=== PATIENT | male | born 1945 | race African-American/Black ===

== ENCOUNTER → 2017-11-14 | Day surgery (SDC) | payer OTHER ==
--- NOTE | 2017-11-12 12:44 | Diagnostic Imaging Report ---
PROCEDURE: Frontal and lateral views of the chest. COMPARISON: None. INDICATIONS: PREOPERATIVE CHEST XRAY FOR BLADDER SURGERY FINDINGS: Lines/tubes: None. Lungs: The lungs are well inflated and grossly clear. There is no evidence of pneumonia or pulmonary edema. Pleura: There is no pleural effusion or pneumothorax. Heart and mediastinum: Cardiac silhouette is unremarkable. Pulmonary vasculature is normal. Bones: No acute bony abnormality. IMPRESSION: 1. No acute cardiopulmonary abnormalities. Jimmy Peterson M.D. Dictated by: Jimmy Peterson M.D. on 11/12/2017 at 12:52 Electronically approved by: Jimmy Peterson M.D. on 11/12/2017 at 12:52
[2017-11-12 13:14] LABS: ANION GAP 13.7 mmol/L (8-16); BLOOD UREA NITROGEN 21 mg/dL (7-26); BUN/CREATININE RATIO 15 (6-25); CALCIUM 9.3 mg/dL (8.4-10.2); CARBON DIOXIDE 24 mmol/L (22-29); CHLORIDE 107 mmol/L (98-107); CREATININE, SERUM 1.38 mg/dL (0.72-1.25); EST GLOMERULAR FILTRATION RATE > 60 ML/MIN (60-); GLUCOSE 183 mg/dL (74-118); POTASSIUM 3.7 mmol/L (3.5-5.1); SODIUM 141 mmol/L (136-145)
[~2017-11-14] MED LIST: ATORVASTATIN CA20 MG PO; CEFTRIAXONE SOD 1 GM VIAL ONE; DEXAMETHASONE SOD PHOS INJ 4 MG/ML VIAL ONE; FENTANYL CITRATE/PF 100MCG/2 ML INJ ONE; FLOMAX0.4 MG PO; HYDROCHLOROTHIA25 MG PO; IOPAMIDOL 610MG/1ML 300 MG/ML VIAL IV ONE; LANTUS 3ML100 UNITS/ SQ; LIDOCAINE HCL 2% LOCAL INJ 5 ML SDV VIAL INJ ONE; LISINOPRIL40 MG PO; METFORMIN HCL1000 MG PO; MIDAZOLAM HCL 2 MG/2 ML VIAL ONE; NOVOLOG MI100 UNIT/1 SQ; ONDANSETRON HCL INJ 2 MG/ML VIAL ONE; PROPOFOL IV EMULSION 10 MG/ML 20 ML VIAL ONE; SEVOFLURANE INHAL SOLN 250 ML PEN BTL ONE
--- NOTE | 2017-11-14 14:32 | Operative Report ---
DATE OF PROCEDURE: November 14, 2017 PREOPERATIVE DIAGNOSIS: Bladder tumor. POSTOPERATIVE DIAGNOSIS: Bladder tumor. PROCEDURE PERFORMED: Cystourethroscopy with bladder washing. ANESTHESIA: General. ESTIMATED BLOOD LOSS: Minimal. COMPLICATIONS: None. INDICATIONS: Mr. Ramos is a 72-year-old male who was discovered to have a bladder tumor on office cystoscopy. He had a CT scan revealing asymmetric bladder wall thickening, more on the right side than on the left, with prostate enlargement. He and I had a long discussion in regard to the alternatives, the risks and benefits including doing nothing, cystoscopy, retrograde pyelograms, bladder tumor resection. He voiced understanding of the options, the alternatives, the risks and the benefits, and elected to proceed. PROCEDURE IN DETAIL: After informed consent was obtained, the patient was taken to the operating suite. He was placed supine on the operating table and underwent general anesthesia by the anesthesia service. He was placed in the dorsal lithotomy position and sterilely prepped and draped in the standard fashion for cystoscopy. A cystoscope was inserted transurethrally. There was a normal-appearing urethra. There was trilobar prostatic hypertrophy with elevated bladder neck. Panendoscopy of the bladder revealed a moderate degree of trabeculation. The entire right side of the bladder extending onto the right trigone was covered with a sessile-appearing tumor. Due to the enlargement of the prostate, I could not access the tumors to get an adequate biopsy although could visualize with the 70-degree scope. The tumors on the right lateral wall were unable to be reached without an extra-long cystoscope which is unavailable at this hospital. At this time, with the inability to safely fulgurate or coagulate any biopsy sites and the scope barely able to reach the bladder neck, we performed a bladder washing as best we could and clearly this tumor is concerning for muscle invasion on the right side. I will have to send him to the [facility] where an extra-long cystoscope set is available. Job#: [id number] EV
== END | disposition home or self-care (01) ==
LOC: OR 11:58
PROVIDERS: ATTEND Urology
DX: D49.4 Neoplasm of unspecified behavior of bladder (principal); N40.0 Benign prostatic hyperplasia without lower urinary tract symptoms; R97.20 Elevated prostate specific antigen [PSA]; N32.89 Other specified disorders of bladder; R35.1 Nocturia; N52.9 Male erectile dysfunction, unspecified; N39.0 Urinary tract infection, site not specified; A80.9 Acute poliomyelitis, unspecified; E66.9 Obesity, unspecified; E11.9 Type 2 diabetes mellitus without complications; I10 Essential (primary) hypertension; R06.02 Shortness of breath; Z01.812 Encounter for preprocedural laboratory examination; Z01.818 Encounter for other preprocedural examination; Z79.4 Long term (current) use of insulin; Z68.37 Body mass index [BMI] 37.0-37.9, adult
CPT/HCPCS: 36415 ×2; 52000; 71046; 76000; 80048; 82948; 88112; C1758; J0696; J1100; J2001; J2250; J2405; Q9967; 88305

== ENCOUNTER → 2017-11-21 | Day surgery (SDC) | payer OTHER ==
[~2017-11-21] MED LIST changes: +BELLADONNA/OPIUM 60 MG SUPP PR ONE; -CEFTRIAXONE SOD 1 GM VIAL ONE; +EPHEDRINE SULFATE INJ 50 MG/10 ML SYR ONE; +GENTAMICIN 80MG/NS 100 ML 100 ML IV ONE
[2017-11-21 09:28] LABS: BASOPHILS % 0.4 % (0.0-1.0); EOSINOPHILS # (AUTO) 0.3 (0.0-0.4); EOSINOPHILS % 4.4 % (0.0-6.0); HEMATOCRIT 44.1 % (38.2-49.6); HEMOGLOBIN 14.6 g/dL (14.0-18.0); LYMPHOCYTES # (AUTO) 1.6 (1.0-3.2); LYMPHOCYTES % 20.8 % (18.0-39.1); MEAN CORPUSCULAR HEMOGLOBIN 30.7 pg (28-32); MEAN CORPUSCULAR HGB CONC 33.1 g/dL (31-35); MEAN CORPUSCULAR VOLUME 92.8 fL (81-99); MONOCYTES # (AUTO) 0.6 (0.2-0.8); MONOCYTES % 8.4 % (4.4-11.3); NEUTROPHILS # (AUTO) 4.9 (2.1-6.9); NEUTROPHILS % 65.5 % (38.7-80.0); PLATELET COUNT 216 x10e3/uL (140-360); RED BLOOD COUNT 4.75 x10e6/uL (4.3-5.7); RED CELL DISTRIBUTION WIDTH 13.7 % (11.7-14.4)
--- NOTE | 2018-01-15 07:07 | Operative Report ---
DATE OF PROCEDURE: November 21, 2017 PREOPERATIVE DIAGNOSES: 1. Lateral wall bladder cancer. 2. Microhematuria. POSTOPERATIVE DIAGNOSES: 1. Lateral wall bladder cancer. 2. Microhematuria. OPERATIONS PERFORMED: 1. Cystourethroscopy with bilateral ureteral catheterization and retrograde ureteropyelography (separate procedure performed for the hematuria). 2. Interpretation of retrograde ureteropyelography. 3. Supervision of fluoroscopy, no radiologist present. 4. Cystourethroscopy with transurethral resection of large bladder tumor. ANESTHESIA: General. COMPLICATIONS: None. CLINICAL SUMMARY: Adolfo Ramos is a 72-year-old man with bladder cancer and microhematuria. He is brought for the above procedures. He is aware of the risks of bleeding, infection, injury to adjacent structures, need for additional procedures, and elected to proceed. OPERATIVE PROCEDURE IN DETAIL: Informed consent was verified. Adolfo Ramos was properly identified, taken to the operating room and placed on the cystoscopy table in supine position. Anesthesia was uneventfully begun. The patient was then carefully and gently repositioned in the dorsal lithotomy position with all pressure points well padded. His genitalia were prepared and draped in usual sterile fashion. The 22.5-Nepali cystoscope sheath with the visual obturator in place was atraumatically inserted in patient's urethra. It was guided down the unremarkable urethra through the normal sphincteric region through the prostate bed, which was significant for visually obstructing and kissing lateral lobes with a very long prostate bed. We entered the patient's bladder where panendoscopy revealed a large bladder tumor well over 5 cm in size encompassing the majority of the right lateral wall. No lesions were identified. An 8-Nepali catheter was used to cannulate each ureter, and retrograde ureteropyelograms were performed. Interpretation of retrograde ureteropyelography: Contrast was instilled in retrograde fashion bilaterally. There was J-hooking and there was cephalad displacement of the ureteral orifices, but there were no tumors, no stones, no diverticula. Unobstructed drainage was observed bilaterally fluoroscopically. We placed the extra-long resectoscope sheath atraumatically into the patient's bladder and started performing transurethral resection of the bladder tumor. We performed fairly extensive resection well over 5 cm in size of lateral wall bladder tumor on the right hand side. This tumor appeared that it could have potential for muscle invasion. Therefore, once we resected a large portion of the tumor, over 5 cm in size resection, we obtained hemostasis with electrocautery and evacuated the bladder tumor chips, and the resectoscope was withdrawn, a Alexander catheter was placed. A belladonna and opium suppository was placed revealing a large over 50 gram prostate, smooth, nonfluctuant, and without any nodules; and the patient was uneventfully reversed from anesthesia and taken to the recovery room in stable condition. There were no complications to the procedure. He tolerated the procedure well. Plans will be to follow the patient up in the office and eagerly await his histopathology report and determine whether additional TURBT is necessary or whether a radical cystoprostatectomy would be in order. Job#: [id number]
== END | disposition home or self-care (01) ==
LOC: OR 08:49
PROVIDERS: ATTEND Urology
DX: C67.2 Malignant neoplasm of lateral wall of bladder (principal); N39.0 Urinary tract infection, site not specified; N40.0 Benign prostatic hyperplasia without lower urinary tract symptoms; R35.1 Nocturia; N52.9 Male erectile dysfunction, unspecified; G83.89 Other specified paralytic syndromes; B91 Sequelae of poliomyelitis; G47.33 Obstructive sleep apnea (adult) (pediatric); I10 Essential (primary) hypertension; E11.9 Type 2 diabetes mellitus without complications; E66.01 Morbid (severe) obesity due to excess calories; Z79.4 Long term (current) use of insulin; Z87.891 Personal history of nicotine dependence; Z68.37 Body mass index [BMI] 37.0-37.9, adult
CPT/HCPCS: 36415; 52005; 52240; 74420; 82948; 85025; 88307; C1758; J1100; J1580; J2001; J2250; J2405; Q9967

== ENCOUNTER → 2017-12-26 | Day surgery (SDC) | payer OTHER ==
[~2017-12-26] MED LIST changes: +CLINDAMYCIN PHOS 900MG/ D5W 50 50 ML IV ONE; -GENTAMICIN 80MG/NS 100 ML 100 ML IV ONE; +GENTAMICIN 80MG/NS 100 ML 200 ML IV ONE; +GLYCOPYRROLATE INJ 1MG/ 5 ML SYR ONE; +METOCLOPRAMIDE HCL 10 MG/2ML VIAL ONE; +NEOSTIGMINE 5 MG/5ML SYR ONE; +PIPER-TAZ 3.375 GM 50 ML ONE; +ROCURONIUM BROMIDE 10 MG/ML 5ML VIAL ONE
--- OUTSIDE RECORDS SUMMARY | 2017-12-26 07:13 | XMS REPORT ---
Author [facility] Address Unknown Phone Unavailable Care Team Providers Care Bushel Girl Name Role Phone LOGAN HANDLEY Unavailable Unavailable Problems This patient has no known problems. Allergies, Adverse Reactions, Alerts This patient has no known allergies or adverse reactions. Medications This patient has no known medications. Results Test Description Test Time Test Comments Text Results Atomic Results Result Comments CHEST 2 VIEWS [place] [address] Patient Name: KVNG LOPEZ MR #: [id number] : 1945 Age/Sex: 72/M Req # : [id number] Adm Physician: Ordered by: LOGAN HANDLEY MD Report #: [id number] Location: OR Room/Bed: Procedure: [id number] DX/CHEST 2 VIEWS Exam Date: 11/12/17 Exam Time: 1215 REPORT STATUS: Signed PROCEDURE: Frontal and lateral views of the chest. COMPARISON: None. INDICATIONS: PREOPERATIVE CHEST XRAY FOR BLADDER SURGERY FINDINGS: Lines/tubes: None. Lungs: The lungs are well inflated and grossly clear. There is no evidence of pneumonia or pulmonary edema. Pleura: There is no pleural effusion or pneumothorax. Heart and mediastinum: Cardiac silhouette is unremarkable. Pulmonary vasculature is normal. Bones: No acute bony abnormality. IMPRESSION: 1. No acute cardiopulmonary abnormalities. Lisa Peterson M.D. Dictated by: Lisa Peterson M.D. on 11/12/2017 at 12:52 Electronically approved by: Lisa Peterson M.D. on 2017 at 12:52 Dictated By: LISA PETERSON MD 1252 Transcribed By: MACK on 1252 COPY TO: LOGAN HANDLEY MD
--- NOTE | 2018-02-22 09:05 | Operative Report ---
DATE OF PROCEDURE: December 26, 2017 PREOPERATIVE DIAGNOSES 1. Obstructive BPH. 2. Large bladder cancer in the right lateral wall, greater than 5 cm. 3. Gross hematuria. 4. Elevated prostatic-specific antigen. POSTOPERATIVE DIAGNOSES 1. Obstructive BPH. 2. Large bladder cancer in the right lateral wall, greater than 5 cm. 3. Gross hematuria. 4. Elevated prostatic-specific antigen. OPERATIONS PERFORMED 1. Transrectal sonography interpretation. 2. Interpretation of ultrasonographic guidance for needle biopsies. 3. Transrectal needle biopsies of prostate (separate performed for the elevated prostatic-specific antigen). 4. Cystourethroscopy with bilateral ureteral catheterization and retrograde ureterography (separate procedure performed for the hematuria). 5. Interpretation of retrograde ureteropyelography. 6. Supervision of fluoroscopy. No radiologist present. 7. Cystourethroscopy with transurethral resection of the lateral portion of the right side of the prostate (separate procedure performed to remove the obstructive BPH and allow us access to resect the bladder cancer). 8. Cystourethroscopy with transurethral resection of larger than 5 cm bladder tumor from the right lateral wall. ANESTHESIA: General. COMPLICATIONS: None. CLINICAL SUMMARY: Adolfo Ramos is a 72-year-old man with bladder cancer and obstructive BPH. In light of PSA, he has had hematuria. The patient is brought for the above procedures. He is aware of the risks of bleeding, infection, injury to adjacent structures, need for additional procedures and elected to proceed. OPERATIVE PROCEDURE IN DETAIL: Informed consent was verified. Adolfo Ramos was properly identified and taken to the operating room, and placed on the cystoscopy table in the supine position. Anesthesia was uneventfully begun. Patient was then carefully and gently repositioned in the dorsal lithotomy position with all pressure points well-padded. Transrectal sonography was the performed. At the time transrectal sonography was performed, it revealed a prostate size very large at 93 mL. Some calcifications were noted along the transition zone. No specific hypoechoic lesions could be identified. The prostate capsule appeared relatively smooth. The seminal vesicles were unremarkable. With ultrasonographic guidance, needle biopsy of the prostate were taken. A total of 12 biopsies were taken, 2 at each at 6 sites. These sites differentiated to right and left and between the base, mid and apex. Once all this was performed, the patient's genitalia were prepared and draped in the usual sterile fashion. The 22.5-Tongan cystoscope sheath with the visual obturator in place was atraumatically inserted into the patient's urethra. It was guided down the unremarkable urethra through the normal sphincteric region and through the prostate bed, which was significant for a very long, very large prostatic urethra with kissing lateral lobes and visual obstruction. Panendoscopy of the urinary bladder revealed a very large greater than 5-cm tumor in the right lateral wall that actually encroached onto the bladder neck as well and was near the prostate. An 8-Tongan catheter was used to cannulate each ureter and performed retrograde ureteropyelograms. Interpretation of retrograde ureteropyelography. Contrast was instilled in a retrograde fashion bilaterally. We were barely to opacify the distal ureter on the right hand side. We were mostly able to opacify the collecting system on the left hand side. This was a suboptimal study. What made the study suboptimal is the fact that we cannot appropriately angulate the ureteral catheter into the ureteral orifices with good coaptation in order to achieve good retrogrades. Nevertheless, we proved there was no distal obstruction as we could see contrast freely draining from the ureter into the bladder. The cystoscope was withdrawn. Resectoscope was placed. We then proceeded with performing transurethral resection of the right proximal lateral prostate. Once we performed this resection and achieved pinpoint electrocautery, it gave us access to a large bladder tumor along the right lateral wall. We then proceeded with performing transurethral section of the bladder tumor. We resected the bladder tumor down to the muscle of the bladder wall. Careful panendoscopy was required to achieve perfect hemostasis. We then also performed additional cystoscopy to survey the bladder yet again to ensure it is indeed cancer free. The patient was uneventfully reversed from anesthesia, and taken to the recovery room in stable condition. The resectoscope was withdrawn. The Alexander catheter was placed. It was irrigated to and fro to ensure it worked properly. The patient was uneventfully reversed from anesthesia, and taken to the recovery room in stable condition. There were no complications to the procedure. The patient tolerated the procedure well. Estimated blood loss was minimal. Explicit postop instructions were given. Will follow the patient up in the office. At the followup visit, assuming he did not have a report showing muscle invasion, we will plan on proceeding with an induction course of 6 weekly treatments of intravesical BCG. Job#: [id number] RI
== END | disposition home or self-care (01) ==
LOC: OR 07:10
PROVIDERS: ATTEND Urology
DX: C67.2 Malignant neoplasm of lateral wall of bladder (principal); N41.1 Chronic prostatitis; N30.80 Other cystitis without hematuria; R97.20 Elevated prostate specific antigen [PSA]; N40.1 Benign prostatic hyperplasia with lower urinary tract symptoms; N13.8 Other obstructive and reflux uropathy; N42.9 Disorder of prostate, unspecified; Z79.4 Long term (current) use of insulin; Z68.37 Body mass index [BMI] 37.0-37.9, adult; I10 Essential (primary) hypertension; E11.9 Type 2 diabetes mellitus without complications; G47.33 Obstructive sleep apnea (adult) (pediatric); N39.0 Urinary tract infection, site not specified; Z87.891 Personal history of nicotine dependence
CPT/HCPCS: 36415; 52005; 52240; 52630; 74420; 76872; 76942; 82948; 88305; C1758; J1100; J1580; J2001; J2250; J2405; J2543; J2765; Q9967

== ENCOUNTER → 2018-07-07 | Outpatient (CLI) | payer OTHER ==
[~2018-07-07] MED LIST changes: -BELLADONNA/OPIUM 60 MG SUPP PR ONE; -CLINDAMYCIN PHOS 900MG/ D5W 50 50 ML IV ONE; -DEXAMETHASONE SOD PHOS INJ 4 MG/ML VIAL ONE; -EPHEDRINE SULFATE INJ 50 MG/10 ML SYR ONE; -FENTANYL CITRATE/PF 100MCG/2 ML INJ ONE; -GENTAMICIN 80MG/NS 100 ML 200 ML IV ONE; -GLYCOPYRROLATE INJ 1MG/ 5 ML SYR ONE; +IOPAMIDOL 370 MG/ML 200 ML INFUS..BTL INJ ONE; -IOPAMIDOL 610MG/1ML 300 MG/ML VIAL IV ONE; -LIDOCAINE HCL 2% LOCAL INJ 5 ML SDV VIAL INJ ONE; -METOCLOPRAMIDE HCL 10 MG/2ML VIAL ONE; -MIDAZOLAM HCL 2 MG/2 ML VIAL ONE; -NEOSTIGMINE 5 MG/5ML SYR ONE; -ONDANSETRON HCL INJ 2 MG/ML VIAL ONE; -PIPER-TAZ 3.375 GM 50 ML ONE; -PROPOFOL IV EMULSION 10 MG/ML 20 ML VIAL ONE; -ROCURONIUM BROMIDE 10 MG/ML 5ML VIAL ONE; -SEVOFLURANE INHAL SOLN 250 ML PEN BTL ONE; +SODIUM CHLORIDE 0.9% 250ML 250 ML ONE; +SODIUM CHLORIDE 0.9% 500ML 500 ML ONE; +SODIUM CHLORIDE 0.9% 50ML 50 ML ONE
[2018-07-07 13:36] LABS: CREATININE, SERUM 1.53 mg/dL (0.72-1.25)
--- NOTE | 2018-07-07 13:59 | Diagnostic Imaging Report ---
EXAMINATION: CHEST 2 VIEWS INDICATION: Bladder neoplasm. NEOPLASM OF BLADDER COMPARISON: Chest x-ray 11/12/2017 FINDINGS: PA and lateral views TUBES and LINES: None. LUNGS: Lungs are well inflated. Ill-defined airspace opacity in the left base, slightly increased compared to prior examination. PLEURA: No pleural effusion or pneumothorax. HEART AND MEDIASTINUM: The cardiomediastinal silhouette is unremarkable. BONES AND SOFT TISSUES: No acute osseous lesion. Soft tissues are unremarkable. UPPER ABDOMEN: No free air under the diaphragm. IMPRESSION: Slightly increased ill-defined airspace of the left lung base, previously present but more pronounced on today's exam. This may represent focal pneumonia. Signed by: Dr. Justino Ventura M.D. on 07/07/2018 1:55 PM
--- NOTE | 2018-07-07 15:45 | Diagnostic Imaging Report ---
EXAM: CT Abdomen and Pelvis WITH contrast INDICATION: \S\NEOPLASM OF BLADDER COMPARISON: None. TECHNIQUE: Abdomen and pelvis were scanned utilizing a multidetector helical scanner from the lung base to the pubic symphysis after administration of IV contrast. Coronal and sagittal reformations were obtained. Routine protocol was performed. Scan was performed when during portal venous phase. IV CONTRAST: 100 mL of Isovue 370 ORAL CONTRAST: Water COMPLICATIONS: None. Patient received hydration protocol. RADIATION DOSE: Total DLP: 874.4 mGy*cm Estimated effective dose: (DLP x 0.015 x size factor) mSv CTDIvol has been reviewed. It is below the limits set by the Radiation Protocol Committee (RPC). FINDINGS: LINES and TUBES: None. LOWER THORAX: There is bibasilar atelectasis. HEPATOBILIARY: No focal hepatic lesions. No biliary ductal dilation. GALLBLADDER: No radio-opaque stones or sludge. No wall thickening. SPLEEN: No splenomegaly. PANCREAS: No focal masses or ductal dilatation. ADRENALS: No adrenal nodules KIDNEYS/URETERS: Kidneys enhance symmetrically. No hydronephrosis. No cystic or solid mass lesions. No stones. GI TRACT: No abnormal distention, wall thickening, or evidence of bowel obstruction. Appendix is normal. PELVIC ORGANS/BLADDER: Asymmetric bladder wall thickening predominantly on the right measuring up to 1.7 cm in thickness. The external contour is irregular, suggestive of extraserosal extension. (Series 2 image 84). LYMPH NODES: * 1.4 cm right internal iliac lymph node (series 2 image 70). * Multiple periaortic lymph nodes. Superior most enlarged lymph node is a 1.5 cm right periaortic lymph node (series 2, image 41). This is at L2 level. VESSELS: Unremarkable. PERITONEUM / RETROPERITONEUM: No free air or fluid. BONES: Unremarkable. SOFT TISSUES: Unremarkable. IMPRESSION: 1. Asymmetric bladder wall thickening along the right aspect, with likely extraserosal extension. 2. Right internal iliac and periaortic lymphadenopathy up to L2 level. Signed by: Dr. Justino Ventura M.D. on 07/07/2018 3:42 PM
== END ==
LOC: NM 12:51
PROVIDERS: ATTEND Urology
DX: D41.4 Neoplasm of uncertain behavior of bladder (principal)
CPT/HCPCS: 36415; 71046; 74177; 82565; 84520; 96360; J7040; J7050; Q9967

== ENCOUNTER 2018-08-03 10:45 | Inpatient (IN) | payer OTHER ==
--- NOTE | 2018-07-30 12:52 | Diagnostic Imaging Report ---
EXAMINATION: CHEST 2 VIEWS INDICATION: Bladder cancer. Preop for bladder removal. COMPARISON: 07/07/2018 FINDINGS: TUBES and LINES: None. LUNGS: Lungs are well inflated. Lungs are clear. There is no evidence of pneumonia or pulmonary edema. PLEURA: No pleural effusion or pneumothorax. HEART AND MEDIASTINUM: The cardiomediastinal silhouette is unremarkable. BONES AND SOFT TISSUES: No acute osseous lesion. Soft tissues are unremarkable. UPPER ABDOMEN: No free air under the diaphragm. IMPRESSION: No acute thoracic abnormality. Signed by: Dr. Carlitos Lemons M.D. on 07/30/2018 12:48 PM
[2018-07-31 10:08] LABS: BASOPHILS % 0.4 % (0.0-1.0); EOSINOPHILS # (AUTO) 0.3 (0.0-0.4); EOSINOPHILS % 2.9 % (0.0-6.0); HEMOGLOBIN 11.8 g/dL (14.0-18.0); LYMPHOCYTES # (AUTO) 1.4 (1.0-3.2); LYMPHOCYTES % 14.8 % (18.0-39.1); MEAN CORPUSCULAR HEMOGLOBIN 31.3 pg (28-32); MEAN CORPUSCULAR HGB CONC 33.7 g/dL (31-35); MEAN CORPUSCULAR VOLUME 92.8 fL (81-99); MONOCYTES # (AUTO) 0.7 (0.2-0.8); MONOCYTES % 7.4 % (4.4-11.3); PLATELET COUNT 227 x10e3/uL (140-360); RED BLOOD COUNT 3.77 x10e6/uL (4.3-5.7); RED CELL DISTRIBUTION WIDTH 13.8 % (11.7-14.4)
[2018-07-31 10:26] LABS: ALBUMIN 3.4 g/dL (3.5-5.0); ANION GAP 14.9 mmol/L (8-16); CALCIUM 9.4 mg/dL (8.4-10.2); CREATININE, SERUM 1.7 mg/dL (0.72-1.25); POTASSIUM 3.9 mmol/L (3.5-5.1)
[2018-08-03] VITALS (12 sets, daily range): BP systolic 114–136; BP diastolic 64–75
[~2018-08-03] VITALS: Ht 185.4 cm; Wt 125.8 kg
[~2018-08-03 10:45] MED LIST changes: -IOPAMIDOL 370 MG/ML 200 ML INFUS..BTL INJ ONE; -SODIUM CHLORIDE 0.9% 250ML 250 ML ONE; -SODIUM CHLORIDE 0.9% 500ML 500 ML ONE; -SODIUM CHLORIDE 0.9% 50ML 50 ML ONE
[2018-08-03] MEDS ORDERED: CEFAZOLIN SOD 2 GM/D5W 50ML 50 ML IV ONE (11:59)
[2018-08-03] MEDS ORDERED: CLINDAMYCIN PHOS 900MG/ 50ML 50 ML IV ONE (11:59)
[2018-08-03] MEDS ORDERED: HEPARIN SOD/SOD CHLORIDE 1,000 ML ONE (12:35)
[2018-08-03] MEDS ORDERED: THROMBIN FOR SOLN 5,000 UNIT VIAL ONE (12:48)
[2018-08-03] MEDS ORDERED: GELATIN SPONGE 12-7MM ONE (12:49)
[2018-08-03] MEDS ORDERED: ACETAMINOPHEN 1000 MG/100 ML 100 ML IV ONE (14:49)
[2018-08-03 16:32] LABS: HEMATOCRIT 30.3 % (38.2-49.6); HEMOGLOBIN 10.1 g/dL (14.0-18.0)
[2018-08-03] MEDS ORDERED: SEVOFLURANE INHAL SOLN 250 ML PEN BTL ONE (17:51)
[2018-08-03] MEDS ORDERED: PROPOFOL IV EMULSION 10 MG/ML 20 ML VIAL ONE (17:51)
[2018-08-03] MEDS ORDERED: NEOSTIGMINE 5 MG/5ML SYR ONE (17:51)
[2018-08-03] MEDS ORDERED: ONDANSETRON HCL INJ 2 MG/ML VIAL ONE (17:51)
[2018-08-03] MEDS ORDERED: ROCURONIUM BROMIDE 10 MG/ML 5ML VIAL ONE (17:51)
[2018-08-03] MEDS ORDERED: EPHEDRINE SULFATE INJ 50 MG/10 ML SYR ONE (17:51)
[2018-08-03] MEDS ORDERED: DEXAMETHASONE SOD PHOS INJ 4 MG/ML VIAL ONE (17:51)
[2018-08-03] MEDS ORDERED: GLYCOPYRROLATE INJ 1MG/ 5 ML SYR ONE (17:51)
[2018-08-03] MEDS ORDERED: LIDOCAINE HCL 2% LOCAL INJ 5 ML SDV VIAL INJ ONE (17:51)
[2018-08-03] MEDS ORDERED: FENTANYL CITRATE/PF 100MCG/2 ML INJ ONE (18:01)
[2018-08-03] MEDS ORDERED: MORPHINE SULFATE INJ 10 MG/ML ONE (18:01)
[2018-08-03] MEDS ORDERED: MIDAZOLAM HCL 5MG/ML 2ML VIAL ONE (18:01)
[2018-08-03] MEDS ORDERED: SUGAMMADEX SODIUM 200 MG/2 ML VIAL IV ONE (19:30)
[2018-08-03] MEDS ORDERED: ACETAMINOPHEN 1000 MG/100 ML IV PRN (20:00)
[2018-08-03] MEDS ORDERED: MORPHINE SULFATE 1 MG/ML 30ML PCA IV PRN (20:00)
[2018-08-03] MEDS ORDERED: ONDANSETRON HCL INJ 2 MG/ML VIAL IV PRN (20:00)
[2018-08-03] MEDS ORDERED: DIPHENHYDRAMINE HCL INJ 50 MG/ML VIAL IM PRN (20:00)
[2018-08-03] MEDS ORDERED: NALOXONE HCL INJ 0.4 MG/ML AMP IV PRN (20:00)
[2018-08-03] MEDS ORDERED: HYDROMORPHONE 2MG/ML 2 MG/ML ML ONE (20:07)
[2018-08-03] MEDS ORDERED: MORPHINE SULFATE 1 MG/ML 30ML PCA ONE (20:35)
[2018-08-03] MEDS ORDERED: MORPHINE SULFATE 2 MG/ML SYR ONE (20:51)
--- NOTE | 2018-08-03 21:21 | Diagnostic Imaging Report ---
EXAMINATION: CHEST SINGLE (PORTABLE) INDICATION: Pneumothorax. COMPARISON: 07/30/2018 FINDINGS: TUBES and LINES: Interval placement of NG/OG Tube with second film demonstrating the tip beyond the film's limit at least at the gastric antrum LUNGS: Lungs are well inflated. There are bibasilar atelectasis. There is perihilar interstitial opacities, consistent with interstitial edema versus atelectasis. PLEURA: No pleural effusion or pneumothorax. HEART AND MEDIASTINUM: The cardiomediastinal silhouette is unremarkable. BONES AND SOFT TISSUES: No acute osseous lesion. Soft tissues are unremarkable. UPPER ABDOMEN: No free air under the diaphragm. IMPRESSION: NG/OG tube in good position. Mild edema/atelectasis Signed by: Dr. Clay Silvestre M.D. on 08/03/2018 9:18 PM
--- NOTE | 2018-08-03 21:41 | Diagnostic Imaging Report ---
EXAM: ABDOMEN-1VIEW (KUB) DATE: 08/03/2018 7:51 PM Time stamp on exam: 2030 INDICATION: Abdominal pain COMPARISON: CT abdomen and pelvis on 07/07/2018 FINDINGS: LINES/TUBES: Patient is status post open laparotomy with midline saumya, a left pelvic drain with multiple surgical clips compatible with cystoprostatectomy and bilateral iliac lymph node dissection. BOWEL PATTERN: No evidence for obstruction. SOFT TISSUES: No abnormal calcifications. No mass effect. LUNG BASES: Not included BONES: No acute findings. IMPRESSION: 1. No evidence of obstructive bowel gas pattern. 2. Postsurgical abdomen as described above Signed by: Dr. Clay Silvestre M.D. on 08/03/2018 9:38 PM
[2018-08-03] MEDS ORDERED: CEFAZOLIN SOD 1 GM/D5W 50ML 50 ML IV SCH (22:00)
[2018-08-03] MEDS: SODIUM CHLORIDE 0.9% 250ML IRRIG IR SCH (22:15)
[2018-08-03] MEDS: SODIUM CHLORIDE 0.9% 1000ML 1,000 ML IV SCH (22:30)
[2018-08-03] MEDS: CEFAZOLIN SOD 1 GM VIAL IV SCH (22:30)
--- NOTE | 2018-08-03 22:49 | Operative Report ---
DATE OF PROCEDURE: August 03, 2018 PREOPERATIVE DIAGNOSIS: Muscle-invasive bladder cancer. POSTOPERATIVE DIAGNOSIS: Muscle-invasive bladder cancer. OPERATIONS PERFORMED: 1. Anterior pelvic exenteration. 2. Bilateral pelvic lymphadenectomy. 3. Bilateral ureteral-ileal conduit. STUD SETTER: Dr. Kristy Urbina MD ANESTHESIA: General. COMPLICATIONS: None. ESTIMATED BLOOD LOSS: 750 mL. CLINICAL SUMMARY: Adolfo Ramos is a 73-year-old man who underwent workup for gross hematuria. He was found to have bladder cancer. His bladder cancer was not muscle invasive. He underwent local care and complete excision of all bladder cancer over several sessions. He also required a extra long resectoscope set in order to accomplish this task. Following this, he underwent a course of intravesical BCG. On surveillance, he was found to have recurrent cancer. Biopsies of the recurrent cancer revealed muscle invasion. At this point in time, retrograde ureteral pyelograms did not show any hydronephrosis nor any upper tract tumors. The patient is brought to the operating room for the above procedures. He is aware of the risks of bleeding, infection, injury to adjacent structures, need for additional procedures, possible need for chemotherapy as well as the risk of incomplete cancer resection. He understood all these risks and he elected to proceed. OPERATIVE PROCEDURE IN DETAIL: Informed consent was verified. Adolfo Ramos was properly identified, taken to the operating room and placed on the operating table in the supine position. Anesthesia was uneventfully begun. The patient's chest, abdomen, and genitalia were shaved, prepared and draped in usual sterile fashion. A midline incision was made from the symphysis pubis to the left of the umbilicus into the midepigastrium. This incision was carried through all layers of the abdominal wall. We entered the peritoneum supraumbilically. We then proceeded with dividing the obliterated urachus posterior to the umbilicus. We then triangulated inferiorly including the posterior rectus sheath along with our specimen. We then proceeded with isolating both ureters, ligating them, and dividing them. The left ureter was normal in caliber. The right ureter was significantly hydronephrotic down to the level of the patient's bladder. We then isolated the bladder and we divided the posterior peritoneum between the bladder and the sigmoid colon. We isolated the bladder from its lateral attachments and then proceeded with utilizing the LigaSure instrument to progressively takedown the pedicles bilaterally until we reached the level of the mid prostate. We then turned our attention anteriorly. We ligated and divided the dorsal venous complex. We then divided the urethra and then we went posteriorly and completed the takedown of the pedicles. We then removed from the field the specimen that included the bladder, the prostate, the distal ureters, . We then copiously irrigated. We placed a 20 mL balloon and placed 60 mL in that balloon and utilized that as a pelvic drain. We then placed our attention on obtaining bilateral pelvic lymphadenectomy specimens. First, we dissected pelvic lymph nodes on the left hand side. We utilized Hemoclips to control blood vessels and lymphatic channels. We then proceeded with dissection of the right hand side. 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 We proceeded with obtaining specimen of tissue which incorporated pelvic lymph nodes from the right hand side as well as what appeared to be the tip of the seminal vesicle. Hemostasis was adequate. We then turned our attention to the urinary diversion. We isolated a piece of terminal ileum. We harvested it, performed the stapled anastomosis of the bowel. The mesenteric window was closed with silk sutures. We then passed the left ureter under the mesentery at the level of the sacral promontory and performed bilateral ureteral ileal anastomoses over single J-stent utilizing 10 interrupted 4-0 Vicryl sutures for each anastomosis. We secured each stent to the ileal conduit with a 4-0 chromic suture. We then matured the stoma to the right of the umbilicus. A Shannon stoma was created. We matured the stoma by securing it to the fascia with four 2-0 silk sutures and then utilizing 3-0 chromic suture to complete the maturation of the stoma. A stomal stent was placed utilizing modified 24-Luxembourgish Alexander catheter. The single J-stent as well as the stomal stent were secured to the skin with nylon suture. There was minimal amount of oozing from the patient's subcutaneous fat, and a 1/4-inch Dena drain was left in place. We then placed a fluted Gustavo drain through a separate stab incision on the left side and secured to the skin with a nylon suture and placed in such a way as to drain the pelvis as well as posterior to the ileal conduit. Copious irrigation was performed at each stage of the closure. We placed the omentum down into the pelvis to protect the incision. The rectus muscles were loosely approximated with Vicryl suture and the fascia was approximated with heavy Vicryl suture in interrupted figure-of-8 fashion. A small Gustavo drain was then placed in the subcutaneous region to the patient's copious subcutaneous fat. The skin was approximated with skin saumya. Sterile dressings were applied. A pelvic drain and Alexander catheter were placed on traction. Stomal appliance was applied, and the patient was then uneventfully reversed from anesthesia and taken to recovery room in stable condition. There were no complications to the procedure. The patient tolerated the procedure well. Sponge, needle, and instrument counts were quoted as correct x2 at the end of the case. Estimated blood loss was 750 mL. PLAN: To proceed with routine postoperative care as well as very close monitoring in the ICU. Multidisciplinary care will be pursued with internal medicine managing the patient's diabetes and other medical problems. We will eagerly await the patient's histopathology reports. Job#: [id number]
[2018-08-04] VITALS (96 sets, daily range): BP systolic -10–186; BP diastolic -12–166
[2018-08-04] MEDS: SODIUM CHLORIDE 0.9% 250ML IRRIG IR SCH ×6 (00:05→20:07)
[2018-08-04] MEDS: SODIUM CHLORIDE 0.9% 1000ML 1,000 ML IV SCH ×2 (01:50→08:45)
[2018-08-04 04:37] LABS: BASOPHILS % 0.1 % (0.0-1.0); HEMATOCRIT 32.1 % (38.2-49.6); HEMOGLOBIN 10.5 g/dL (14.0-18.0); LYMPHOCYTES # (AUTO) 0.5 (1.0-3.2); LYMPHOCYTES % 3.5 % (18.0-39.1); MEAN CORPUSCULAR HEMOGLOBIN 30.7 pg (28-32); MEAN CORPUSCULAR HGB CONC 32.7 g/dL (31-35); MEAN CORPUSCULAR VOLUME 93.9 fL (81-99); MONOCYTES # (AUTO) 0.7 (0.2-0.8); MONOCYTES % 4.3 % (4.4-11.3); NEUTROPHILS % 91.6 % (38.7-80.0); PLATELET COUNT 207 x10e3/uL (140-360); RED BLOOD COUNT 3.42 x10e6/uL (4.3-5.7); RED CELL DISTRIBUTION WIDTH 14.4 % (11.7-14.4)
[2018-08-04 05:05] LABS: ANION GAP 16.7 mmol/L (8-16); CALCIUM 7.9 mg/dL (8.4-10.2); CREATININE, SERUM 1.54 mg/dL (0.72-1.25); MAGNESIUM 1.2 MG/DL (1.3-2.1); POTASSIUM 4.7 mmol/L (3.5-5.1)
[2018-08-04] MEDS: CEFAZOLIN SOD 1 GM VIAL IV SCH ×3 (06:27→21:12)
[2018-08-04] MEDS ORDERED: DEXTROSE 50% SYRINGE 50 ML IV PRN (09:15)
[2018-08-04] MEDS ORDERED: INSULIN DETEMIR 100 UNIT/ML PEN SQ NR (09:30)
[2018-08-04] MEDS ORDERED: MAGNESIUM SULFATE 2GM/50ML 50 ML IV ONE (10:15)
--- NOTE | 2018-08-04 10:57 | History and Physical ---
Patient is status post anterior pelvic surgery with bilateral pelvic lymphadenectomy and ileal conduit done by Dr. Kristy Urbina and Dr. Juan Urbina. HISTORY OF PRESENT ILLNESS: Patient is a 73-year-old male now status post anterior pelvic exenteration with bilateral pelvic lymphadenectomy with bilateral ureteral ileal conduit secondary to muscle invasive urinary bladder cancer. Patient is stable now. He has an NG tube in place. He has not had any flatus. The patient is stable postoperative day #1. PAST MEDICAL HISTORY: Urinary bladder cancer, hypertension, diabetes type 2, dyslipidemia, enlarged prostate and insulin treatment. PAST SURGICAL HISTORY: Status post urological surgery on August 03, 2018, with anterior pelvic exenteration, bilateral pelvic lymphadenectomy, and bilateral ureteral ileal conduit. The patient is stable at this time. HOME MEDICATIONS: Lipitor, hydrochlorothiazide, Lantus insulin, aspart, lisinopril, metformin and Flomax. ALLERGIES: NO KNOWN ALLERGIES. PHYSICAL EXAMINATION VITAL SIGNS: Temperature is 98. Blood pressure is 99/40. Pulse rate 77. Respirations 18. GENERAL: The patient is not in acute distress. HEENT: Normocephalic and atraumatic, anicteric. NECK: Supple grossly. NG tube is in place. PULMONARY: Diminished breath sounds. CARDIOVASCULAR: Regular rate and rhythm. ABDOMEN: Status post surgery. EXTREMITIES: SCDs. No cyanosis or edema. NEUROLOGIC: No focal deficit. LABORATORY: Sodium is 141, potassium 4.7, chloride 111, bicarb 18, BUN 24, creatinine 1.5. Glucose 277. WBC is 15, hemoglobin 10.5, hematocrit 32.1, platelets 207. IMPRESSION 1. Status post anterior pelvic exenteration with bilateral pelvic lymphadenectomy, bilateral ureteral ileal conduit secondary to muscle invasive urinary bladder cancer. 2. Baseline diabetes, type 2, on insulin therapy. 3. Hypertension. 4. Dyslipidemia. 5. Nasogastric tube postoperatively. PLAN: Adjust the patient's medications. Insulin sliding scale coverage as treatment for high blood sugar. NG tube on low suction. Repeated lab work. Monitor the patient closely. Postoperative care. Job#: [id number]
[2018-08-04] MEDS: INSULIN LISPRO 100 UNIT/1 ML 3ML VIAL SQ SCH ×2 (12:00→18:00)
[2018-08-04] MEDS ORDERED: SODIUM CHLORIDE 0.9% 250ML 250 ML ONE (12:06)
[2018-08-04] MEDS ORDERED: ACETAMINOPHEN 1000 MG/100 ML IV PRN (19:45)
[2018-08-04] MEDS: INSULIN DETEMIR 100 UNIT/ML PEN SQ SCH (21:22)
[2018-08-05] VITALS (73 sets, daily range): BP systolic 103–159; BP diastolic 49–105
[2018-08-05] MEDS: SODIUM CHLORIDE 0.9% 250ML IRRIG IR SCH ×6 (00:03→20:59)
[2018-08-05] MEDS: INSULIN LISPRO 100 UNIT/1 ML 3ML VIAL SQ SCH ×4 (00:03→19:11)
[2018-08-05] MEDS: SODIUM CHLORIDE 0.9% 1000ML 1,000 ML IV SCH ×2 (01:37→09:41)
[2018-08-05 04:41] LABS: BASOPHILS % 0.1 % (0.0-1.0); EOSINOPHILS # (AUTO) 0.1 (0.0-0.4); EOSINOPHILS % 0.6 % (0.0-6.0); HEMATOCRIT 30.3 % (38.2-49.6); HEMOGLOBIN 9.9 g/dL (14.0-18.0); LYMPHOCYTES # (AUTO) 0.6 (1.0-3.2); LYMPHOCYTES % 5.5 % (18.0-39.1); MEAN CORPUSCULAR HGB CONC 32.7 g/dL (31-35); MONOCYTES # (AUTO) 0.7 (0.2-0.8); MONOCYTES % 5.9 % (4.4-11.3); NEUTROPHILS # (AUTO) 9.7 (2.1-6.9); NEUTROPHILS % 87.2 % (38.7-80.0); PLATELET COUNT 197 x10e3/uL (140-360); RED BLOOD COUNT 3.19 x10e6/uL (4.3-5.7); RED CELL DISTRIBUTION WIDTH 14.6 % (11.7-14.4)
[2018-08-05 05:04] LABS: CALCIUM 8.3 mg/dL (8.4-10.2); CREATININE, SERUM 1.43 mg/dL (0.72-1.25)
[2018-08-05 05:27] LABS: THYROID STIMULATING HORMONE 2.822 uIU/mL (0.350-4.940)
[2018-08-05] MEDS: CEFAZOLIN SOD 1 GM VIAL IV SCH ×3 (05:51→22:15)
[2018-08-05] MEDS ORDERED: MAGNESIUM SULFATE 2GM/50ML 50 ML IV ONE (12:15)
[2018-08-05] MEDS ORDERED: CALCIUM CHLORIDE 13.6 MEQ in SODIUM CHLORIDE 0.9% 100 ML 100 ML IV ONE (12:45)
[2018-08-05] MEDS: INSULIN DETEMIR 100 UNIT/ML PEN SQ SCH (21:04)
[2018-08-06] VITALS (38 sets, daily range): BP systolic 55–154; BP diastolic 30–116
[2018-08-06] MEDS: SODIUM CHLORIDE 0.9% 250ML IRRIG IR SCH ×7 (00:51→23:13)
[2018-08-06] MEDS: INSULIN LISPRO 100 UNIT/1 ML 3ML VIAL SQ SCH ×5 (00:54→23:18)
[2018-08-06] MEDS: SODIUM CHLORIDE 0.9% 1000ML 1,000 ML IV SCH ×2 (00:57→04:29)
[2018-08-06 04:42] LABS: BASOPHILS % 0.2 % (0.0-1.0); EOSINOPHILS # (AUTO) 0.1 (0.0-0.4); EOSINOPHILS % 1.1 % (0.0-6.0); HEMATOCRIT 30.6 % (38.2-49.6); LYMPHOCYTES # (AUTO) 1.1 (1.0-3.2); LYMPHOCYTES % 8.9 % (18.0-39.1); MEAN CORPUSCULAR HEMOGLOBIN 30.9 pg (28-32); MEAN CORPUSCULAR HGB CONC 32.7 g/dL (31-35); MEAN CORPUSCULAR VOLUME 94.4 fL (81-99); MONOCYTES # (AUTO) 0.7 (0.2-0.8); NEUTROPHILS % 83.1 % (38.7-80.0); PLATELET COUNT 208 x10e3/uL (140-360); RED BLOOD COUNT 3.24 x10e6/uL (4.3-5.7); RED CELL DISTRIBUTION WIDTH 14.8 % (11.7-14.4)
[2018-08-06 05:03] LABS: ANION GAP 14.6 mmol/L (8-16); CALCIUM 9.3 mg/dL (8.4-10.2); CREATININE, SERUM 1.6 mg/dL (0.72-1.25); POTASSIUM 3.6 mmol/L (3.5-5.1)
[2018-08-06] MEDS: CEFAZOLIN SOD 1 GM VIAL IV SCH ×3 (05:27→23:13)
[2018-08-06] MEDS ORDERED: MORPHINE SULFATE 1 MG/ML 30ML PCA IV PRN (09:00)
[2018-08-06] MEDS: SODIUM CHLORIDE 0.45% 1,000 ML IV SCH ×2 (09:18→19:15)
[2018-08-06] MEDS: BISACODYL 10 MG SUPP PR PRN (09:20)
[2018-08-06] MEDS: INSULIN DETEMIR 100 UNIT/ML PEN SQ SCH (20:44)
[2018-08-07] VITALS (20 sets, daily range): BP systolic 95–162; BP diastolic 50–85
[2018-08-07 04:39] LABS: BASOPHILS % 0.2 % (0.0-1.0); EOSINOPHILS # (AUTO) 0.3 (0.0-0.4); EOSINOPHILS % 2.2 % (0.0-6.0); HEMATOCRIT 32.7 % (38.2-49.6); HEMOGLOBIN 10.4 g/dL (14.0-18.0); LYMPHOCYTES # (AUTO) 1.1 (1.0-3.2); LYMPHOCYTES % 8.8 % (18.0-39.1); MEAN CORPUSCULAR HGB CONC 31.8 g/dL (31-35); MEAN CORPUSCULAR VOLUME 97.3 fL (81-99); MONOCYTES # (AUTO) 0.9 (0.2-0.8); MONOCYTES % 7.2 % (4.4-11.3); NEUTROPHILS # (AUTO) 10.1 (2.1-6.9); PLATELET COUNT 217 x10e3/uL (140-360); RED BLOOD COUNT 3.36 x10e6/uL (4.3-5.7); RED CELL DISTRIBUTION WIDTH 14.7 % (11.7-14.4)
[2018-08-07 05:02] LABS: ANION GAP 16.7 mmol/L (8-16); CALCIUM 9.5 mg/dL (8.4-10.2); CREATININE, SERUM 1.56 mg/dL (0.72-1.25); POTASSIUM 3.7 mmol/L (3.5-5.1)
[2018-08-07] MEDS: SODIUM CHLORIDE 0.9% 250ML IRRIG IR SCH ×3 (06:07→11:57)
[2018-08-07] MEDS: SODIUM CHLORIDE 0.45% 1,000 ML IV SCH ×2 (06:07→14:13)
[2018-08-07] MEDS: CEFAZOLIN SOD 1 GM VIAL IV SCH ×3 (06:08→21:40)
[2018-08-07] MEDS: INSULIN LISPRO 100 UNIT/1 ML 3ML VIAL SQ SCH ×4 (06:11→20:45)
[2018-08-07] MEDS ORDERED: DEXTROSE 5% 1,000 ML IV SCH (10:30)
[2018-08-07] MEDS ORDERED: MORPHINE SULFATE INJ 4 MG/ML INJ IV PRN (11:15)
[2018-08-07] MEDS: DOCUSATE SODIUM 100 MG CAP PO SCH (17:25)
[2018-08-07] MEDS: INSULIN DETEMIR 100 UNIT/ML PEN SQ SCH (20:45)
[2018-08-08] VITALS (7 sets, daily range): BP systolic 127–158; BP diastolic 60–72
[2018-08-08] MEDS: SODIUM CHLORIDE 0.45% 1,000 ML IV SCH ×2 (03:47→16:09)
[2018-08-08] MEDS: CEFAZOLIN SOD 1 GM VIAL IV SCH ×3 (06:04→22:00)
[2018-08-08] MEDS: ACETAMINOPHEN/CODEINE 300MG - 30MG TAB PO PRN ×4 (06:14→22:16)
[2018-08-08 06:15] LABS: BASOPHILS % 0.3 % (0.0-1.0); EOSINOPHILS # (AUTO) 0.3 (0.0-0.4); EOSINOPHILS % 2.8 % (0.0-6.0); HEMOGLOBIN 11.9 g/dL (14.0-18.0); LYMPHOCYTES # (AUTO) 0.9 (1.0-3.2); LYMPHOCYTES % 8.3 % (18.0-39.1); MEAN CORPUSCULAR HEMOGLOBIN 30.7 pg (28-32); MEAN CORPUSCULAR HGB CONC 31.3 g/dL (31-35); MEAN CORPUSCULAR VOLUME 98.2 fL (81-99); MONOCYTES # (AUTO) 0.7 (0.2-0.8); MONOCYTES % 6.4 % (4.4-11.3); NEUTROPHILS # (AUTO) 8.8 (2.1-6.9); NEUTROPHILS % 81.7 % (38.7-80.0); PLATELET COUNT 207 x10e3/uL (140-360); RED BLOOD COUNT 3.87 x10e6/uL (4.3-5.7); RED CELL DISTRIBUTION WIDTH 14.5 % (11.7-14.4)
[2018-08-08 06:33] LABS: ANION GAP 14.6 mmol/L (8-16); CALCIUM 9.5 mg/dL (8.4-10.2); PHOSPHORUS 3.8 MG/DL (2.3-4.7); POTASSIUM 3.6 mmol/L (3.5-5.1)
[2018-08-08 06:56] LABS: THYROID STIMULATING HORMONE 1.354 uIU/mL (0.350-4.940)
[2018-08-08 07:30] LABS: FOLATE 6.1 ng/mL (7.0-15.4)
[2018-08-08] MEDS: INSULIN LISPRO 100 UNIT/1 ML 3ML VIAL SQ SCH ×4 (08:00→20:42)
[2018-08-08] MEDS: DOCUSATE SODIUM 100 MG CAP PO SCH ×2 (08:24→17:07)
[2018-08-08] MEDS: FOLIC ACID 1 MG TAB PO SCH (11:09)
[2018-08-08] MEDS: CHLORPROMAZINE HCL 25 MG TAB PO PRN (20:39)
[2018-08-08] MEDS: INSULIN DETEMIR 100 UNIT/ML PEN SQ SCH (20:42)
[2018-08-09] VITALS (8 sets, daily range): BP systolic 126–163; BP diastolic 62–72
[2018-08-09] MEDS: ACETAMINOPHEN/CODEINE 300MG - 30MG TAB PO PRN ×4 (02:48→23:56)
[2018-08-09] MEDS: SODIUM CHLORIDE 0.45% 1,000 ML IV SCH (05:41)
[2018-08-09] MEDS: CEFAZOLIN SOD 1 GM VIAL IV SCH ×3 (05:41→21:47)
[2018-08-09 05:54] LABS: ANION GAP 6.5 mmol/L (8-16); CALCIUM 9.3 mg/dL (8.4-10.2); CREATININE, SERUM 1.84 mg/dL (0.72-1.25); POTASSIUM 3.5 mmol/L (3.5-5.1)
[2018-08-09] MEDS: INSULIN LISPRO 100 UNIT/1 ML 3ML VIAL SQ SCH ×4 (08:00→20:40)
[2018-08-09] MEDS: FOLIC ACID 1 MG TAB PO SCH (08:34)
[2018-08-09] MEDS: DOCUSATE SODIUM 100 MG CAP PO SCH ×2 (08:34→17:21)
[2018-08-09] MEDS: CHLORPROMAZINE HCL 25 MG TAB PO PRN (08:34)
[2018-08-09] MEDS: INSULIN DETEMIR 100 UNIT/ML PEN SQ SCH (20:40)
[2018-08-10] VITALS: BP 163/75
[2018-08-10] MEDS: CHLORPROMAZINE HCL 25 MG TAB PO PRN ×2 (00:46→15:00)
[2018-08-10 04:00] VITALS: BP 130/59
[2018-08-10] MEDS: CEFAZOLIN SOD 1 GM VIAL IV SCH ×2 (06:05→14:00)
[2018-08-10 06:29] LABS: ANION GAP 13.5 mmol/L (8-16); CREATININE, SERUM 1.73 mg/dL (0.72-1.25); POTASSIUM 3.5 mmol/L (3.5-5.1)
[2018-08-10 07:27] VITALS: BP 169/76
[2018-08-10] MEDS: INSULIN LISPRO 100 UNIT/1 ML 3ML VIAL SQ SCH ×4 (08:30→21:16)
[2018-08-10] MEDS: DOCUSATE SODIUM 100 MG CAP PO SCH ×2 (10:00→17:52)
[2018-08-10] MEDS: FOLIC ACID 1 MG TAB PO SCH (10:00)
[2018-08-10] MEDS: ACETAMINOPHEN/CODEINE 300MG - 30MG TAB PO PRN ×2 (10:30→19:40)
[2018-08-10 13:27] VITALS: BP 184/82
[2018-08-10 16:30] VITALS: BP 160/65
[2018-08-10 20:00] VITALS: BP 156/64
[2018-08-10] MEDS: BISACODYL 10 MG SUPP PR PRN (21:15)
[2018-08-10] MEDS: INSULIN DETEMIR 100 UNIT/ML PEN SQ SCH (21:16)
[2018-08-11] VITALS: BP 118/57
[2018-08-11 00:25] VITALS: BP 156/64
[2018-08-11] MEDS: ACETAMINOPHEN/CODEINE 300MG - 30MG TAB PO PRN ×2 (00:41→08:45)
[2018-08-11 04:00] VITALS: BP 126/59
[2018-08-11] MEDS: INSULIN LISPRO 100 UNIT/1 ML 3ML VIAL SQ SCH (07:30)
[2018-08-11] MEDS: FOLIC ACID 1 MG TAB PO SCH (08:42)
[2018-08-11] MEDS: DOCUSATE SODIUM 100 MG CAP PO SCH (08:42)
[2018-08-11] MEDS: CHLORPROMAZINE HCL 25 MG TAB PO PRN (08:42)
--- NOTE | 2018-08-11 08:58 | Discharge Summary ---
SHEET FED PRINTER: Dr. Juan Urbina FINAL DIAGNOSES 1. Status post radical cystectomy secondary to urinary bladder cancer. 2. Status post pelvic lymph node biopsy along with ileal conduit creation. SUMMARY: Patient is a 73-year-old male status post anterior pelvic exoneration with bilateral pelvic lymphadenectomy with bilateral ureteroileal conduit secondary to muscle invasive urinary bladder cancer with status post radical cystectomy as well. The patient has a diverting ileal conduit as mentioned. He had a long recovery postoperatively. The patient had selective surgical procedures and subsequently admitted to my service to continue with medical care. The patient is pending for discharge home today with home health for ostomy care. The patient is otherwise stable. Medications are resumed. The patient's prescriptions were already written by Dr. Juan Urbina with Tylenol No. 3 as needed for pain, Colace b.i.d., Keflex 500 mg t.i.d. for 5 days, Zofran p.r.n. for nausea and vomiting. Patient will resume his home medications, including Lipitor, hydrochlorothiazide and his insulin along with his blood pressure medications. He is otherwise stable. Lab work is sodium 148, potassium 3.5, chloride 111, bicarb 25, BUN is 19, creatinine 1.7, glucose 137. The patient is to follow up with Dr. Juan Urbina per his instructions. Patient to be followed up by ostomy nurse and home health for his ostomy care. Patient is stable and discharged home today. Follow up as an outpatient. Job#: [id number] JASMEET
[2018-08-11 09:02] VITALS: BP 171/77
== END 2018-08-11 11:20 | disposition home or self-care (01) | DRG 654 ==
LOC: OR 10:45 → EDSTATUS 13:00 → ICU 21:43 → MED/SURG 08-07 15:29
PROVIDERS: ADMIT Internal Medicine; ATTEND Internal Medicine
PROC: 0T180ZC Bypass Bilateral Ureters to Ileocutaneous, Open Approach (ICD-10-PCS; 2018-08-03)
PROC: 07BC0ZX Excision of Pelvis Lymphatic, Open Approach, Diagnostic (ICD-10-PCS; 2018-08-03)
PROC: 0TTB0ZZ Resection of Bladder, Open Approach (ICD-10-PCS; 2018-08-03)
PROC: 07BD0ZX Excision of Aortic Lymphatic, Open Approach, Diagnostic (ICD-10-PCS; 2018-08-03)
PROC: 07BC0ZX Excision of Pelvis Lymphatic, Open Approach, Diagnostic (ICD-10-PCS; 2018-08-03)
PROC: 0VB00ZX Excision of Prostate, Open Approach, Diagnostic (ICD-10-PCS; 2018-08-03)
PROC: 0VB Male Reproductive System, Excision (ICD-10-PCS; 2018-08-03)
PROC: 0TB70ZZ Excision of Left Ureter, Open Approach (ICD-10-PCS; 2018-08-03)
PROC: 0TB60ZZ Excision of Right Ureter, Open Approach (ICD-10-PCS; 2018-08-03)
PROC: 0TRB07Z Replacement of Bladder with Autologous Tissue Substitute, Open Approach (ICD-10-PCS; principal; 2018-08-03 13:00)
DX: C67.9 Malignant neoplasm of bladder, unspecified (principal); E87.0 Hyperosmolality and hypernatremia; I10 Essential (primary) hypertension; K21.9 Gastro-esophageal reflux disease without esophagitis; N40.0 Benign prostatic hyperplasia without lower urinary tract symptoms; E78.5 Hyperlipidemia, unspecified; Z86.12 Personal history of poliomyelitis; E11.9 Type 2 diabetes mellitus without complications; Z79.84 Long term (current) use of oral hypoglycemic drugs; Z87.891 Personal history of nicotine dependence
CPT/HCPCS: 36415; 71045; 71046; 74018; 80048; 80053; 82607; 82746; 82948; 83036; 83735; 84100; 84443; 85014; 85018; 85025; 86850; 86900; 86920; 88304; 88305; 88307; 88309; 88342; 93005; 96360; 96372; 97139; J0690; J1100; J2001; J2250; J2270; J2405; J3475; J7030; J7050; J7070

== ENCOUNTER 2018-08-16 08:53 | Inpatient (IN) | payer OTHER ==
[~2018-08-16] VITALS: Ht 185.4 cm; Wt 130.7 kg
[2018-08-16 09:59] LABS: BASOPHILS % 0.2 % (0.0-1.0); EOSINOPHILS # (AUTO) 0.1 (0.0-0.4); HEMATOCRIT 29.3 % (38.2-49.6); HEMOGLOBIN 9.5 g/dL (14.0-18.0); LYMPHOCYTES # (AUTO) 0.9 (1.0-3.2); LYMPHOCYTES % 8.4 % (18.0-39.1); MEAN CORPUSCULAR HEMOGLOBIN 30.7 pg (28-32); MEAN CORPUSCULAR HGB CONC 32.4 g/dL (31-35); MEAN CORPUSCULAR VOLUME 94.8 fL (81-99); MONOCYTES % 8.8 % (4.4-11.3); NEUTROPHILS % 80.7 % (38.7-80.0); PLATELET COUNT 319 x10e3/uL (140-360); RED BLOOD COUNT 3.09 x10e6/uL (4.3-5.7); RED CELL DISTRIBUTION WIDTH 14.2 % (11.7-14.4)
[2018-08-16 10:02] LABS: INR 1.09; PROTHROMBIN TIME 15.1 seconds (11.9-14.5)
[2018-08-16 10:08] LABS: AMPHETAMINES SCREEN,URINE NEGATIVE (NEGATIVE); BENZODIAZEPINES SCREEN,URINE NEGATIVE (NEGATIVE); PHENCYCLIDINE SCREEN,URINE NEGATIVE (NEGATIVE)
--- NOTE | 2018-08-16 10:09 | Diagnostic Imaging Report ---
EXAM: CT Abdomen and Pelvis WITHOUT contrast INDICATION: Pain, prostatectomy and cystectomy August 05, 2018. Possible small bowel obstruction. COMPARISON: CT abdomen 07/07/2018, no report available. TECHNIQUE: Abdomen and Pelvis was scanned utilizing a multidetector helical scanner without the use of IV contrast. Coronal and sagittal reformations were obtained. IV CONTRAST: None COMPLICATIONS: None RADIATION DOSE: Total DLP: 931 mGy*cm Estimated effective dose: (DLP x 0.015 x size factor) mSv CTDIvol has been reviewed. It is below the limits set by the Radiation Protocol Committee (RPC). Appropriate CT dose reduction techniques were utilized. FINDINGS: Abdomen: Lung Bases: Minimal tree-in-bud opacities left lung base. Solid Organs: Mild decreased attenuation of the liver. Bilateral ureteral jets terminating in right lower quadrant ileal diversion. No significant hydronephrosis. Solid organs otherwise unremarkable. Upper GI Tract: Partial gastric decompression limits evaluation. Prominent fluid-filled loops of small bowel measuring up to 44 mm. Vascularity: Mild aortoiliac disease with no aneurysm. Lymph Nodes: Lymph nodes poorly evaluated given lack of IV contrast. Enlarged aortocaval nodes are similar to previous CT including 31 x 15 mm series 2 image 44, 17 x 17 mm image 47. Other: Postsurgical changes ventral abdominal wall with right lower quadrant guarding ileostomy. Pelvis: Bladder: Cystectomy changes with multiple surgical clips pelvis. Mild stranding in the pelvis presumed postsurgical with no definite fluid collection. Other: Prostatectomy changes. Patulous left inguinal canal. Colon: Moderate colonic stool. Bones: Degenerative changes. IMPRESSION: 1. Interval cystectomy and prostatectomy changes with right lower quadrant diverting ileostomy. 2. Aortoiliac adenopathy poorly evaluated given lack of IV contrast. Metastatic disease of primary concern. Findings similar to recent CT. 3. Dilated fluid-filled loops of small bowel could represent ileus or partial obstruction. 4. Minimal tree-in-bud opacities left lower lobe could represent infection or sequela of microaspiration. 5. Bilateral ureteral stents with no significant hydronephrosis. Superimposed infectious process not excluded. Clinical and laboratory correlation recommended. Signed by: Dr. Lorenzo Valdez MD on 08/16/2018 10:05 AM
[2018-08-16 10:12] LABS: BILIRUBIN,URINE NEGATIVE (NEGATIVE); CLARITY,URINE TURBID (CLEAR); COLOR,URINE YELLOW (YELLOW); KETONES,URINE NEGATIVE (NEGATIVE); LEUKOCYTE ESTERASE ,URINE 2+ (NEGATIVE); NITRITE,URINE POSITIVE (NEGATIVE); PROTEIN,URINE DIPSTICK 3+ (NEGATIVE); URINE UROBILINOGEN 0.2 mg/dL (0.2 - 1)
[2018-08-16 10:13] LABS: AMORPHOUS SEDIMENT,URINE MODERATE (FEW); BACTERIA,URINE MANY /HPF; EPITHELIAL CELLS,URINE RARE /LPF; WBC,URINE (MAN) 21-50 /HPF (0-5)
[2018-08-16 10:13] LABS: ALBUMIN 2.5 g/dL (3.5-5.0); ALBUMIN/GLOBULIN RATIO 0.7 (0.8-2.0); ANION GAP 25.6 mmol/L (8-16); CALCIUM 8.5 mg/dL (8.4-10.2); CREATININE, SERUM 10.46 mg/dL (0.72-1.25); POTASSIUM 3.6 mmol/L (3.5-5.1)
[2018-08-16] MEDS ORDERED: SODIUM CHLORIDE 0.9% 1000ML 1,000 ML IV STA (10:52)
[2018-08-16] MEDS ORDERED: MORPHINE SULFATE 2 MG/ML SYR IV PRN (11:00)
[2018-08-16] MEDS ORDERED: DEXTROSE 50% SYRINGE 50 ML IV PRN (11:00)
[2018-08-16] MEDS ORDERED: MORPHINE SULFATE INJ 4 MG/ML INJ IV PRN (11:15)
[2018-08-16] MEDS: INSULIN REGULAR, HUMAN 100 UNIT/1 ML 3ML VIAL SQ SCH ×3 (11:40→21:00)
[2018-08-16] MEDS ORDERED: CEFTRIAXONE SOD 1 GM VIAL IV SCH (12:00)
[2018-08-16] MEDS ORDERED: SODIUM CHLORIDE 0.9% 50ML 50 ML ONE (12:13)
--- NOTE | 2018-08-16 13:03 | Diagnostic Imaging Report ---
EXAM: XR CHEST 1 VIEW DATE: 08/16/2018 12:20 PM INDICATION: Pain COMPARISON: None FINDINGS: Lines and Tubes: None Heart and Mediastinum: No acute cardiomediastinal findings. Lungs and Pleura: No significant pleural effusion, pneumothorax, or focal consolidation. Bones and Soft Tissues: No acute findings. IMPRESSION: 1. No acute cardiopulmonary findings. Signed by: Dr. Lorenzo Valdez MD on 08/16/2018 1:00 PM
[2018-08-16] MEDS ORDERED: VANCOMYCIN 1GM/NS 250 ML 250 ML IV ONE (15:00)
[2018-08-16 15:04] LABS: ANION GAP 23.1 mmol/L (8-16); CALCIUM 8.1 mg/dL (8.4-10.2); CREATININE, SERUM 10.86 mg/dL (0.72-1.25); POTASSIUM 4.1 mmol/L (3.5-5.1)
[2018-08-16] MEDS: SODIUM CHLORIDE 0.9% 1000ML 1,000 ML IV SCH ×3 (15:33→23:59)
[2018-08-16] MEDS: CEFEPIME HCL 1 GM VIAL IV SCH (18:10)
--- NOTE | 2018-08-16 19:12 | History and Physical ---
CHILD'S NURSE: Dr. Juan Urbina. CHIEF COMPLAINT: Acute kidney failure. HISTORY: Patient is a 73-year-old male who recently had status post radical cystectomy secondary to urinary bladder cancer with status post pelvic lymph node biopsy along with ileal conduit creation. Patient's procedure was done and was discharged home on August 11, 2018. He came back in this time with acute kidney failure. When he was discharged, his creatinine was 1.7 and BUN was 19. The patient has an ileal conduit. Per spouse, the patient did okay until Friday, basically when the urine subsided. There was only half a bag of urine and then after Friday, the patient stopped making urine and get more confused. He came in now with chemistry panel, BUN and creatinine of 74 and 10.4. Patient's potassium was 3.7. There is no urine in the ostomy bag. The patient is confused. PAST MEDICAL HISTORY: Urinary bladder cancer status post procedures on August 03, 2018, done by Dr. Juan Urbina with anterior pelvic exenteration, bilateral pelvic lymphadenopathy, bilateral ureteral-ileal conduit creation for the diagnosis muscle invasive urinary bladder cancer. Patient is with chronic kidney disease, chronic anemia, dyslipidemia, diabetes on insulin, hypertension, and enlarged prostate. PAST SURGICAL HISTORY: With urinary bladder radical cystectomy, bilateral pelvic lymphadenectomy, bilateral ureteral-ileal conduit creation. SOCIAL HISTORY: Patient lives at home with his family. He has very good family support. ALLERGIES: NO KNOWN ALLERGY. HOME MEDICATIONS: List is reviewed. REVIEW OF SYSTEMS: As mentioned above. PHYSICAL EXAMINATION VITAL SIGNS: Temperature is 98, blood pressure 105/53, pulse rate 71, respirations 18. GENERAL: The patient is confused, but not in any distress. HEENT: Normocephalic, atraumatic. Sclerae anicteric. NECK: Supple grossly. PULMONARY: Diminished breath sounds. CARDIOVASCULAR: S1, S2. Regular rate and rhythm. ABDOMEN: Ileal conduit with stable, intact. The surrounding area of the ostomy shown to be with skin breakdown and infection. There may be pus discharge around the area of the ostomy. LABORATORY: Sodium is 140, potassium 3.6, chloride 103, bicarb 15, BUN is 74, creatinine 10.5, glucose is 89. WBC 11, hemoglobin 9.5, hematocrit 29.3, and platelets are 319. Urinalysis; 2+ leukocyte esterase, wbc's 50, many bacteria. Urine culture is still pending. IMPRESSION 1. Acute kidney failure. 2. Recent urinary bladder radical cystectomy secondary to urinary bladder cancer with muscle invasion, status post bilateral ureteral stent placement with ileal conduit creation. 3. Multiple chronic baseline problems. PLAN: IV antibiotics, cefepime and vancomycin. Place the patient on insulin sliding scale coverage for now. Discontinue metformin and all other medications not necessary at this time. IV fluid rehydration. Monitor urine output. Repeated lab work. Dr. Mateo North has seen the patient and with Dr. Juan Urbina. Discussed with Dr. Juan Urbina currently. Job#: [id number] LPA
[2018-08-16 19:30] VITALS: BP 148/62
[2018-08-16] MEDS ORDERED: LORAZEPAM INJ 2 MG/ML VIAL IV ONE (21:00)
[2018-08-16] MEDS ORDERED: LORAZEPAM INJ 2 MG/ML VIAL ONE (21:02)
[2018-08-16] MEDS ORDERED: ZIPRASIDONE 20 MG VIAL IM ONE (21:02)
[2018-08-16 21:26] LABS: ABG HCO3 12 mmol/L (23-28); ABG PCO2 28 mmHg (41-51); ABG PH 7.22 (7.31-7.41); ABG PO2 132 mmHg (80-105)
[2018-08-16 21:50] LABS: INR 1.17; PROTHROMBIN TIME 15.9 seconds (11.9-14.5)
[2018-08-16 21:52] LABS: BASOPHILS % 0.3 % (0.0-1.0); EOSINOPHILS # (AUTO) 0.1 (0.0-0.4); EOSINOPHILS % 0.9 % (0.0-6.0); HEMATOCRIT 29.7 % (38.2-49.6); HEMOGLOBIN 9.3 g/dL (14.0-18.0); LYMPHOCYTES # (AUTO) 1.9 (1.0-3.2); LYMPHOCYTES % 14.5 % (18.0-39.1); MEAN CORPUSCULAR HEMOGLOBIN 30.8 pg (28-32); MEAN CORPUSCULAR HGB CONC 31.3 g/dL (31-35); MEAN CORPUSCULAR VOLUME 98.3 fL (81-99); MONOCYTES # (AUTO) 1.3 (0.2-0.8); MONOCYTES % 9.8 % (4.4-11.3); NEUTROPHILS # (AUTO) 9.8 (2.1-6.9); NEUTROPHILS % 73.4 % (38.7-80.0); PLATELET COUNT 348 x10e3/uL (140-360); RED BLOOD COUNT 3.02 x10e6/uL (4.3-5.7); RED CELL DISTRIBUTION WIDTH 14.2 % (11.7-14.4)
[2018-08-16 22:03] LABS: CREATINE KINASE MB 3.9 ng/mL (0-5.0)
[2018-08-16 23:00] VITALS: BP 96/53
--- NOTE | 2018-08-16 23:00 | Diagnostic Imaging Report ---
EXAMINATION: Head CT without contrast. HISTORY:Altered mental status. COMPARISON:None. TECHNIQUE: Multidetector axial images were obtained from the foramen magnum to the vertex without contrast. The images were reconstructed using brain and bone algorithms. Thin section brain images were reformatted into coronal and sagittal planes. Dose modulation, iterative reconstruction, and/or weight based adjustment of the mA/kV was utilized to reduce the radiation dose to as low as reasonably achievable. Intravenous contrast: None IMAGE QUALITY: Acceptable. FINDINGS: Skull/scalp: No lytic or blastic. lesions. No surgical changes. Parenchyma: Nonspecific few, scattered supratentorial white matter hypodensity are likely related to small vessel ischemic changes. No acute hemorrhage, mass or acute major vascular territorial infarct. Arteries: No density suggestive of thrombosis. Dural sinuses: No abnormal density suggestive of thrombosis. Ventricles: No hydrocephalus or displacement. Extra-axial spaces: No abnormal density. Brain volume: Mild generalized cerebral volume loss. Craniocervical junction: No mass, Chiari malformation, or basilar invagination. Sella: No mass. Paranasal/mastoid sinuses: Imaged portions unremarkable. IMPRESSION: 1. No acute intracranial abnormality, no acute hemorrhage, mass or acute major vascular territorial infarct. 2. Mild supratentorial white matter microvascular ischemic changes. 3. Mild generalized cerebral volume loss. Signed by: Dr. Theresa Sylvester M.D. on 08/16/2018 10:57 PM
[2018-08-16 23:31] LABS: ALBUMIN/GLOBULIN RATIO 0.6 (0.8-2.0); ANION GAP 24.2 mmol/L (8-16); CALCIUM 7.7 mg/dL (8.4-10.2); CREATININE, SERUM 12.43 mg/dL (0.72-1.25); POTASSIUM 4.2 mmol/L (3.5-5.1)
[2018-08-17] VITALS (28 sets, daily range): BP systolic 89–165; BP diastolic 43–85
[2018-08-17] MEDS: ZIPRASIDONE 20 MG VIAL IM PRN ×2 (01:41→15:48)
[2018-08-17 05:06] LABS: BASOPHILS % 0.2 % (0.0-1.0); EOSINOPHILS # (AUTO) 0.1 (0.0-0.4); EOSINOPHILS % 0.5 % (0.0-6.0); HEMATOCRIT 25.4 % (38.2-49.6); HEMOGLOBIN 8.2 g/dL (14.0-18.0); LYMPHOCYTES # (AUTO) 0.9 (1.0-3.2); MEAN CORPUSCULAR HEMOGLOBIN 31.2 pg (28-32); MEAN CORPUSCULAR HGB CONC 32.3 g/dL (31-35); MEAN CORPUSCULAR VOLUME 96.6 fL (81-99); MONOCYTES % 9.8 % (4.4-11.3); NEUTROPHILS # (AUTO) 7.9 (2.1-6.9); NEUTROPHILS % 79.3 % (38.7-80.0); PLATELET COUNT 297 x10e3/uL (140-360); RED BLOOD COUNT 2.63 x10e6/uL (4.3-5.7); RED CELL DISTRIBUTION WIDTH 14.3 % (11.7-14.4)
[2018-08-17 05:45] LABS: ALBUMIN 2.1 g/dL (3.5-5.0); ALBUMIN/GLOBULIN RATIO 0.7 (0.8-2.0); ANION GAP 22.9 mmol/L (8-16); CALCIUM 7.7 mg/dL (8.4-10.2); CREATININE, SERUM 12.16 mg/dL (0.72-1.25); POTASSIUM 3.9 mmol/L (3.5-5.1)
[2018-08-17] MEDS: INSULIN REGULAR, HUMAN 100 UNIT/1 ML 3ML VIAL SQ SCH ×4 (07:30→21:00)
[2018-08-17] MEDS: SODIUM CHLORIDE 0.9% 1000ML 1,000 ML IV SCH ×2 (07:38→17:02)
[2018-08-17] MEDS: CEFEPIME HCL 1 GM VIAL IV SCH (09:00)
[2018-08-17] MEDS ORDERED: VANCOMYCIN 1GM/NS 250 ML 250 ML IV ONE (10:00)
[2018-08-17] MEDS: PIPERACILLIN/TAZO 2.25 GM 50 ML IV SCH ×2 (14:39→21:29)
[2018-08-17] MEDS ORDERED: BISACODYL 10 MG SUPP PR PRN (14:45)
[2018-08-17] MEDS: WATER STERILE 10 ML VIAL INJ PRN (15:48)
--- NOTE | 2018-08-17 17:20 | Consultation ---
DATE OF CONSULTATION: This is a 73-year-old male who is a very confused. History is from the chart and from the family. Apparently, the patient had radical cystectomy secondary to urinary bladder cancer, and had pelvic lymph node biopsy along with ileal conduit creation. He was discharged home on August 11, 2018, with a creatinine of 1.7 and BUN 19. The patient went home and then started becoming oliguric, and was very confused. The patient came into the ER with a creatinine of 10.4. PAST MEDICAL HISTORY 1. Urinary bladder cancer with anterior pelvic exoneration. 2. Bilateral pelvic lymphadenopathy. 3. Bilateral urethral ileal conduit creation with muscle invasive urinary bladder cancer diagnosis. 4. Chronic kidney disease with a creatinine of 1.7, stage 3. 5. Anemia of chronic disease. 6. Dyslipidemia. 7. Type 2 diabetes mellitus. 8. Previous arm infection. 9. Enlarged prostate. 10. Hypertension. PAST SURGICAL HISTORY 1. Bilateral urethral ileal conduit creation. 2. Bilateral pelvic lymphadenopathy. 3. Urinary bladder radical cystectomy. ALLERGIES: NO KNOWN DRUG ALLERGIES. SOCIAL HISTORY: No smoking. No alcohol. No drugs at this time. REVIEW OF SYSTEMS: Unable to get from the patient. HOME MEDICATIONS: Reviewed. PHYSICAL EXAMINATION GENERAL: The patient is confused. HEENT: Pupils equal and reactive to light. Normal vision. NECK: No JVD. No bruits. LUNGS: No rhonchi. No rales. HEART: Regular rate and rhythm. No S3. No S4. ABDOMEN: Nontender. No hepatosplenomegaly. EXTREMITIES: No clubbing. No cyanosis. No edema. VITALS: Blood pressure 130/54. CURRENT MEDICATIONS: Includes Geodon, Zosyn, insulin, bisacodyl, morphine, and vancomycin. LABS: White count today 10, hemoglobin 8.2, hematocrit 25.4. Sodium 141, potassium 3.9, chloride 107, CO2 15, creatinine 12.1. Lactic acid 43.2. Culture of urine gram-negative bacillus. Blood culture pending. ASSESSMENT AND PLAN 1. Acute kidney failure secondary to acute tubular necrosis on chronic kidney disease, stage 3: The acute tubular necrosis is most likely secondary to sepsis. Currently, on intravenous antibiotics and intravenous fluids. We might need to add bicarbonate. 2. Status post recent urinary bladder radical cystectomy secondary to urinary bladder cancer with muscle invasion: The patient was seen by urology. There is no hydronephrosis by ultrasound. 3. Type 2 diabetes mellitus: Followed by Dr. Polanco. 4. Hypertension: Currently stable. In short, ATN secondary to sepsis. I discussed with the family the possibility of needing dialysis. Job#: [id number] RI
[2018-08-17 19:22] LABS: BASOPHILS % 0.2 % (0.0-1.0); EOSINOPHILS # (AUTO) 0.1 (0.0-0.4); EOSINOPHILS % 1.4 % (0.0-6.0); HEMATOCRIT 30.2 % (38.2-49.6); HEMOGLOBIN 9.2 g/dL (14.0-18.0); LYMPHOCYTES # (AUTO) 0.8 (1.0-3.2); LYMPHOCYTES % 8.9 % (18.0-39.1); MEAN CORPUSCULAR HEMOGLOBIN 30.5 pg (28-32); MEAN CORPUSCULAR HGB CONC 30.5 g/dL (31-35); MONOCYTES # (AUTO) 1.1 (0.2-0.8); MONOCYTES % 11.3 % (4.4-11.3); NEUTROPHILS # (AUTO) 7.2 (2.1-6.9); NEUTROPHILS % 77.3 % (38.7-80.0); PLATELET COUNT 333 x10e3/uL (140-360); RED BLOOD COUNT 3.02 x10e6/uL (4.3-5.7); RED CELL DISTRIBUTION WIDTH 14.6 % (11.7-14.4)
[2018-08-17 20:01] LABS: ANION GAP 25.2 mmol/L (8-16); CALCIUM 7.6 mg/dL (8.4-10.2); CREATININE, SERUM 12.92 mg/dL (0.72-1.25); MAGNESIUM 2.3 MG/DL (1.3-2.1); PHOSPHORUS 7.7 MG/DL (2.3-4.7); POTASSIUM 4.2 mmol/L (3.5-5.1)
[2018-08-17] MEDS ORDERED: LIDOCAINE HCL 1% LOCAL INJ 20 ML VIAL ONE (21:22)
[2018-08-17] MEDS: LORAZEPAM INJ 2 MG/ML VIAL IV PRN ×2 (22:15→22:40)
--- NOTE | 2018-08-17 22:55 | Diagnostic Imaging Report ---
EXAMINATION: CHEST SINGLE (PORTABLE) INDICATION: Line placement COMPARISON: 08/16/2018 FINDINGS: TUBES and LINES: Interval placement of right IJ central line catheter with tip overlying the distal SVC LUNGS: Lungs are not well inflated. There are bibasilar atelectasis. There is mild prominence of the central pulmonary vasculature, consistent with pulmonary venous congestion. PLEURA: No pleural effusion or pneumothorax. HEART AND MEDIASTINUM: The cardiomediastinal silhouette is unremarkable. BONES AND SOFT TISSUES: No acute osseous lesion. Soft tissues are unremarkable. UPPER ABDOMEN: No free air under the diaphragm. IMPRESSION: Low lung volumes. Right IJ central line catheter in good position. Signed by: Dr. Clay Silvestre M.D. on 08/17/2018 10:51 PM
[2018-08-18] VITALS (67 sets, daily range): BP systolic 110–174; BP diastolic 33–114
[2018-08-18] MEDS ORDERED: HEPARIN SOD (PORCINE) 1000 UNIT/ML SDV ONE ×2 (01:15→03:33)
[2018-08-18] MEDS: SODIUM CHLORIDE 0.9% 1000ML 1,000 ML IV SCH (01:42)
[2018-08-18] MEDS: PIPERACILLIN/TAZO 2.25 GM 50 ML IV SCH ×3 (05:59→22:00)
[2018-08-18 06:46] LABS: ANION GAP 21.7 mmol/L (8-16); BASOPHILS % 0.2 % (0.0-1.0); CALCIUM 7.3 mg/dL (8.4-10.2); CREATININE, SERUM 10.7 mg/dL (0.72-1.25); EOSINOPHILS # (AUTO) 0.1 (0.0-0.4); EOSINOPHILS % 0.8 % (0.0-6.0); HEMATOCRIT 25.3 % (38.2-49.6); HEMOGLOBIN 8.3 g/dL (14.0-18.0); LYMPHOCYTES # (AUTO) 0.7 (1.0-3.2); MAGNESIUM 2.1 MG/DL (1.3-2.1); MEAN CORPUSCULAR HGB CONC 32.8 g/dL (31-35); MEAN CORPUSCULAR VOLUME 94.4 fL (81-99); NEUTROPHILS # (AUTO) 8.4 (2.1-6.9); NEUTROPHILS % 80.8 % (38.7-80.0); PHOSPHORUS 5.8 MG/DL (2.3-4.7); PLATELET COUNT 227 x10e3/uL (140-360); POTASSIUM 3.7 mmol/L (3.5-5.1); RED BLOOD COUNT 2.68 x10e6/uL (4.3-5.7); RED CELL DISTRIBUTION WIDTH 14.5 % (11.7-14.4)
--- NOTE | 2018-08-18 07:29 | Diagnostic Imaging Report ---
PROCEDURE:NON-TUNNELLED HEMODIALYSIS CATHETER PLACEMENT WITH ULTRASOUND GUIDANCE COMPARISON:None. INDICATIONS: Requiring urgent hemodialysis access DIGITAL PRODUCTION OPERATOR: Declan Sanchez MD COMPLICATIONS: No immediate complication MEDICATIONS: 10 cc of 1% subcutaneous lidocaine BLOOD LOSS: Minimal PROCEDURE: Written informed consent was obtained from the healthcare proxy. The right internal jugular vein was patent and compressible on ultrasound and an image was stored for the record. The patient was prepped and draped in sterile fashion. After administration of 1% subcutaneous lidocaine, a micropuncture needle was used to access right internal jugular vein. Subsequently, a microwire was placed and the needle was exchanged for a microsheath. The .018'' wire was exchanged for an .035'' Amplatz wire. Sequential dilatation was performed. Subsequently, a 13 Fr x 20 cm non-tunneled Trialysis catheter was placed. All the lumens aspirated blood briskly and were flushed with normal saline. The catheter was secured into place with two Ethilon sutures. Sterile bandage was placed. CONCLUSION: Ultrasound guided placement of right internal jugular triple lumen non-tunneled hemodialysis catheter. PLAN: Awaiting post procedural chest radiograph. Once position is confirmed to be satisfactory, catheter is okay to use. Dictated by: DECLAN SANCHEZ M.D. on 08/18/2018 at 7:38 Electronically approved by: DECLAN SANCHEZ M.D. on 08/18/2018 at 7:38
[2018-08-18] MEDS: INSULIN REGULAR, HUMAN 100 UNIT/1 ML 3ML VIAL SQ SCH ×4 (07:30→21:00)
--- NOTE | 2018-08-18 07:31 | Diagnostic Imaging Report ---
PROCEDURE:ULTRASOUND GUIDANCE FOR VASCULAR ACCESS COMPARISON:None. INDICATIONS:rt ijv trialysis FINDINGS/CONCLUSION: Ultrasound guidance was utilized to place a right internal jugular vein triple lumen non-tunneled hemodialysis catheter. The right internal jugular vein was patent and compressible on ultrasound and an image was saved for the record. Please refer to the procedural report for further details. Dictated by: ADRYAN SANCHEZ M.D. on 08/18/2018 at 7:39 Electronically approved by: ADRYAN SANCHEZ M.D. on 08/18/2018 at 7:39
[2018-08-18] MEDS: LORAZEPAM INJ 2 MG/ML VIAL IV PRN ×3 (10:03→21:31)
[2018-08-18] MEDS: WATER STERILE 10 ML VIAL INJ PRN (10:18)
[2018-08-18] MEDS: ZIPRASIDONE 20 MG VIAL IM PRN (10:18)
[2018-08-18] MEDS ORDERED: SODIUM CHLORIDE 0.9% 1000ML 2,000 ML IV PRN (12:00)
[2018-08-18] MEDS ORDERED: HEPARIN SOD (PORCINE) 1000 UNIT/ML SDV IV PRN (12:00)
[2018-08-18] MEDS ORDERED: SODIUM CHLORIDE 0.9% 250ML 500 ML IV PRN (12:00)
[2018-08-19] VITALS (50 sets, daily range): BP systolic 98–192; BP diastolic 59–109
[2018-08-19 05:02] LABS: ANION GAP 23.6 mmol/L (8-16); CALCIUM 7.5 mg/dL (8.4-10.2); CREATININE, SERUM 11.26 mg/dL (0.72-1.25); POTASSIUM 3.6 mmol/L (3.5-5.1)
[2018-08-19] MEDS: PIPERACILLIN/TAZO 2.25 GM 50 ML IV SCH ×3 (05:58→22:27)
[2018-08-19] MEDS: INSULIN REGULAR, HUMAN 100 UNIT/1 ML 3ML VIAL SQ SCH ×4 (07:30→16:51)
[2018-08-19] MEDS: LORAZEPAM INJ 2 MG/ML VIAL IV PRN (10:41)
[2018-08-19] MEDS: WATER STERILE 10 ML VIAL INJ PRN (22:59)
[2018-08-19] MEDS: ZIPRASIDONE 20 MG VIAL IM PRN (22:59)
[2018-08-20] VITALS (45 sets, daily range): BP systolic 102–159; BP diastolic 48–109
[2018-08-20] MEDS: LORAZEPAM INJ 2 MG/ML VIAL IV PRN ×5 (03:03→23:53)
[2018-08-20 04:36] LABS: BASOPHILS % 0.1 % (0.0-1.0); EOSINOPHILS # (AUTO) 0.1 (0.0-0.4); EOSINOPHILS % 0.7 % (0.0-6.0); HEMATOCRIT 22.3 % (38.2-49.6); HEMOGLOBIN 7.4 g/dL (14.0-18.0); LYMPHOCYTES # (AUTO) 0.9 (1.0-3.2); LYMPHOCYTES % 6.6 % (18.0-39.1); MEAN CORPUSCULAR HEMOGLOBIN 30.8 pg (28-32); MEAN CORPUSCULAR HGB CONC 33.2 g/dL (31-35); MEAN CORPUSCULAR VOLUME 92.9 fL (81-99); MONOCYTES # (AUTO) 1.1 (0.2-0.8); MONOCYTES % 8.2 % (4.4-11.3); NEUTROPHILS # (AUTO) 11.2 (2.1-6.9); NEUTROPHILS % 82.9 % (38.7-80.0); PLATELET COUNT 183 x10e3/uL (140-360); RED CELL DISTRIBUTION WIDTH 14.2 % (11.7-14.4)
[2018-08-20 04:56] LABS: ANION GAP 18.4 mmol/L (8-16); CALCIUM 7.5 mg/dL (8.4-10.2); CREATININE, SERUM 9.29 mg/dL (0.72-1.25); POTASSIUM 3.4 mmol/L (3.5-5.1)
[2018-08-20] MEDS: PIPERACILLIN/TAZO 2.25 GM 50 ML IV SCH ×3 (06:06→22:02)
[2018-08-20] MEDS: INSULIN REGULAR, HUMAN 100 UNIT/1 ML 3ML VIAL SQ SCH ×4 (07:30→21:22)
[2018-08-20] MEDS ORDERED: VANCOMYCIN 1GM/NS 250 ML 250 ML IV ONE ×2 (09:15→13:15)
[2018-08-20] MEDS ORDERED: POTASSIUM CHLORIDE 10MEQ/100ML 100 ML IV ONE ×2 (09:15→13:15)
[2018-08-20] MEDS ORDERED: SODIUM CHLORIDE 0.9% 250ML 250 ML IV ONE (09:15)
[2018-08-20] MEDS ORDERED: SODIUM CHLORIDE 0.9% 250ML 250 ML ONE (13:17)
[2018-08-21] VITALS (48 sets, daily range): BP systolic 92–146; BP diastolic 44–95
[2018-08-21] MEDS: LORAZEPAM INJ 2 MG/ML VIAL IV PRN (03:05)
[2018-08-21 04:26] LABS: BASOPHILS % 0.2 % (0.0-1.0); EOSINOPHILS # (AUTO) 0.4 (0.0-0.4); EOSINOPHILS % 2.7 % (0.0-6.0); HEMATOCRIT 21.9 % (38.2-49.6); HEMOGLOBIN 7.1 g/dL (14.0-18.0); LYMPHOCYTES # (AUTO) 1.2 (1.0-3.2); LYMPHOCYTES % 8.4 % (18.0-39.1); MEAN CORPUSCULAR HEMOGLOBIN 30.6 pg (28-32); MEAN CORPUSCULAR HGB CONC 32.4 g/dL (31-35); MEAN CORPUSCULAR VOLUME 94.4 fL (81-99); MONOCYTES # (AUTO) 1.3 (0.2-0.8); MONOCYTES % 9.2 % (4.4-11.3); NEUTROPHILS # (AUTO) 10.5 (2.1-6.9); NEUTROPHILS % 77.2 % (38.7-80.0); PLATELET COUNT 211 x10e3/uL (140-360); RED BLOOD COUNT 2.32 x10e6/uL (4.3-5.7); RED CELL DISTRIBUTION WIDTH 14.4 % (11.7-14.4)
[2018-08-21 04:51] LABS: ANION GAP 22.5 mmol/L (8-16); CALCIUM 7.6 mg/dL (8.4-10.2); CREATININE, SERUM 11.7 mg/dL (0.72-1.25); PHOSPHORUS 5.5 MG/DL (2.3-4.7); POTASSIUM 3.5 mmol/L (3.5-5.1)
[2018-08-21] MEDS: PIPERACILLIN/TAZO 2.25 GM 50 ML IV SCH ×3 (06:39→22:09)
[2018-08-21] MEDS: INSULIN REGULAR, HUMAN 100 UNIT/1 ML 3ML VIAL SQ SCH ×4 (07:30→21:00)
[2018-08-21] MEDS: WATER STERILE 10 ML VIAL INJ PRN (11:43)
[2018-08-21] MEDS: ZIPRASIDONE 20 MG VIAL IM PRN (11:43)
[2018-08-22] VITALS (28 sets, daily range): BP systolic 100–157; BP diastolic 54–91
[2018-08-22 04:24] LABS: BASOPHILS % 0.2 % (0.0-1.0); EOSINOPHILS # (AUTO) 0.1 (0.0-0.4); EOSINOPHILS % 0.9 % (0.0-6.0); HEMATOCRIT 24.6 % (38.2-49.6); HEMOGLOBIN 8.2 g/dL (14.0-18.0); LYMPHOCYTES # (AUTO) 0.9 (1.0-3.2); LYMPHOCYTES % 6.2 % (18.0-39.1); MEAN CORPUSCULAR HEMOGLOBIN 30.6 pg (28-32); MEAN CORPUSCULAR HGB CONC 33.3 g/dL (31-35); MEAN CORPUSCULAR VOLUME 91.8 fL (81-99); MONOCYTES # (AUTO) 1.2 (0.2-0.8); MONOCYTES % 7.8 % (4.4-11.3); NEUTROPHILS # (AUTO) 12.3 (2.1-6.9); NEUTROPHILS % 83.3 % (38.7-80.0); PLATELET COUNT 182 x10e3/uL (140-360); RED BLOOD COUNT 2.68 x10e6/uL (4.3-5.7); RED CELL DISTRIBUTION WIDTH 15.6 % (11.7-14.4)
[2018-08-22 04:44] LABS: ANION GAP 20.6 mmol/L (8-16); CALCIUM 7.8 mg/dL (8.4-10.2); CREATININE, SERUM 8.49 mg/dL (0.72-1.25); POTASSIUM 3.6 mmol/L (3.5-5.1)
[2018-08-22] MEDS: PIPERACILLIN/TAZO 2.25 GM 50 ML IV SCH ×3 (06:01→21:14)
[2018-08-22] MEDS: INSULIN REGULAR, HUMAN 100 UNIT/1 ML 3ML VIAL SQ SCH ×5 (07:30→21:15)
[2018-08-22] MEDS: ONDANSETRON HCL INJ 2 MG/ML VIAL IV PRN ×2 (11:08→20:05)
[2018-08-22] MEDS ORDERED: METOCLOPRAMIDE HCL 10 MG/2ML VIAL IV PRN (12:15)
[2018-08-22] MEDS: PANTOPRAZOLE 40 MG 10ML VIAL IV SCH (12:51)
[2018-08-23] VITALS (16 sets, daily range): BP systolic 108–150; BP diastolic 54–80
[2018-08-23] MEDS: ONDANSETRON HCL INJ 2 MG/ML VIAL IV PRN (02:37)
[2018-08-23] MEDS: PIPERACILLIN/TAZO 2.25 GM 50 ML IV SCH ×3 (06:10→21:54)
[2018-08-23 06:58] LABS: BASOPHILS % 0.3 % (0.0-1.0); EOSINOPHILS # (AUTO) 0.5 (0.0-0.4); EOSINOPHILS % 3.5 % (0.0-6.0); HEMATOCRIT 26.9 % (38.2-49.6); HEMOGLOBIN 8.8 g/dL (14.0-18.0); LYMPHOCYTES % 7.6 % (18.0-39.1); MEAN CORPUSCULAR HEMOGLOBIN 30.6 pg (28-32); MEAN CORPUSCULAR HGB CONC 32.7 g/dL (31-35); MEAN CORPUSCULAR VOLUME 93.4 fL (81-99); MONOCYTES # (AUTO) 1.2 (0.2-0.8); MONOCYTES % 8.9 % (4.4-11.3); NEUTROPHILS # (AUTO) 10.2 (2.1-6.9); NEUTROPHILS % 78.3 % (38.7-80.0); PLATELET COUNT 222 x10e3/uL (140-360); RED BLOOD COUNT 2.88 x10e6/uL (4.3-5.7); RED CELL DISTRIBUTION WIDTH 15.5 % (11.7-14.4)
[2018-08-23 07:07] LABS: ANION GAP 19.6 mmol/L (8-16); CALCIUM 7.9 mg/dL (8.4-10.2); CREATININE, SERUM 10.84 mg/dL (0.72-1.25); POTASSIUM 3.6 mmol/L (3.5-5.1)
[2018-08-23] MEDS: INSULIN REGULAR, HUMAN 100 UNIT/1 ML 3ML VIAL SQ SCH ×4 (07:30→21:53)
[2018-08-23] MEDS: PANTOPRAZOLE 40 MG 10ML VIAL IV SCH (09:26)
[2018-08-23] MEDS ORDERED: SODIUM CHLORIDE 0.9% 250ML 250 ML ONE (21:44)
[2018-08-24] VITALS (7 sets, daily range): BP systolic 102–148; BP diastolic 55–67
[2018-08-24] MEDS: PIPERACILLIN/TAZO 2.25 GM 50 ML IV SCH (05:17)
[2018-08-24 05:25] LABS: BASOPHILS % 0.3 % (0.0-1.0); EOSINOPHILS # (AUTO) 0.6 (0.0-0.4); EOSINOPHILS % 4.4 % (0.0-6.0); HEMATOCRIT 27.9 % (38.2-49.6); HEMOGLOBIN 9.1 g/dL (14.0-18.0); LYMPHOCYTES # (AUTO) 1.3 (1.0-3.2); MEAN CORPUSCULAR HEMOGLOBIN 30.3 pg (28-32); MEAN CORPUSCULAR HGB CONC 32.6 g/dL (31-35); MONOCYTES # (AUTO) 1.1 (0.2-0.8); MONOCYTES % 8.4 % (4.4-11.3); NEUTROPHILS # (AUTO) 9.8 (2.1-6.9); NEUTROPHILS % 75.2 % (38.7-80.0); PLATELET COUNT 261 x10e3/uL (140-360); RED CELL DISTRIBUTION WIDTH 15.1 % (11.7-14.4)
[2018-08-24 05:52] LABS: ANION GAP 21.9 mmol/L (8-16); CALCIUM 8.1 mg/dL (8.4-10.2); CREATININE, SERUM 13.06 mg/dL (0.72-1.25); MAGNESIUM 2.1 MG/DL (1.3-2.1); PHOSPHORUS 6.5 MG/DL (2.3-4.7); POTASSIUM 3.9 mmol/L (3.5-5.1)
[2018-08-24] MEDS: INSULIN REGULAR, HUMAN 100 UNIT/1 ML 3ML VIAL SQ SCH ×5 (07:55→21:00)
[2018-08-24] MEDS: PANTOPRAZOLE 40 MG 10ML VIAL IV SCH (09:00)
[2018-08-24] MEDS ORDERED: EPOETIN ALFA 10000 UNIT/ML VIAL SC SCH (13:00)
[2018-08-25] VITALS (8 sets, daily range): BP systolic 122–148; BP diastolic 63–72
[2018-08-25 06:39] LABS: ANION GAP 14.6 mmol/L (8-16); CALCIUM 7.9 mg/dL (8.4-10.2); CREATININE, SERUM 9.36 mg/dL (0.72-1.25); POTASSIUM 3.6 mmol/L (3.5-5.1)
[2018-08-25] MEDS: INSULIN REGULAR, HUMAN 100 UNIT/1 ML 3ML VIAL SQ SCH ×4 (07:30→21:00)
[2018-08-25] MEDS: PANTOPRAZOLE 40 MG 10ML VIAL IV SCH (10:18)
[2018-08-25 21:21] LABS: INR 1.05; PROTHROMBIN TIME 14.6 seconds (11.9-14.5)
[2018-08-25 21:22] LABS: PARTIAL THROMBOPLASTIN TIME 32.1 seconds (23.8-35.5)
[2018-08-26] VITALS: BP 138/63
[2018-08-26 04:00] VITALS: BP 102/50
[2018-08-26 06:07] LABS: ANION GAP 16.4 mmol/L (8-16); CALCIUM 7.9 mg/dL (8.4-10.2); CREATININE, SERUM 11.6 mg/dL (0.72-1.25); POTASSIUM 3.4 mmol/L (3.5-5.1)
[2018-08-26] MEDS: INSULIN REGULAR, HUMAN 100 UNIT/1 ML 3ML VIAL SQ SCH ×4 (07:30→20:33)
[2018-08-26 08:00] VITALS: BP 123/58
[2018-08-26] MEDS: PANTOPRAZOLE 40 MG 10ML VIAL IV SCH (09:57)
[2018-08-26 12:00] VITALS: BP 114/57
[2018-08-26] MEDS: FLUCONAZOLE 100 MG TAB PO SCH (14:25)
[2018-08-26] MEDS: CIPROFLOXACIN 250 MG TAB PO SCH (14:25)
[2018-08-26 15:59] VITALS: BP 124/58
[2018-08-26 20:00] VITALS: BP 135/63
[2018-08-27] VITALS: BP 138/60
[2018-08-27 04:00] VITALS: BP 117/56
[2018-08-27 05:36] LABS: ANION GAP 17.6 mmol/L (8-16); CALCIUM 7.8 mg/dL (8.4-10.2); CREATININE, SERUM 13.87 mg/dL (0.72-1.25); POTASSIUM 3.6 mmol/L (3.5-5.1)
[2018-08-27] MEDS: INSULIN REGULAR, HUMAN 100 UNIT/1 ML 3ML VIAL SQ SCH ×4 (07:30→21:00)
[2018-08-27 08:00] VITALS: BP 153/70
[2018-08-27] MEDS: PANTOPRAZOLE 40 MG 10ML VIAL IV SCH (09:59)
[2018-08-27] MEDS ORDERED: HEPARIN SOD (PORCINE) 1000 UNIT/ML 30ML ONE (11:10)
[2018-08-27] MEDS ORDERED: LIDOCAINE HCL 1% LOCAL INJ 20 ML VIAL ONE ×2 (11:11→11:35)
[2018-08-27] MEDS ORDERED: SODIUM CHLORIDE 0.9% 500ML 500 ML ONE (11:11)
[2018-08-27] MEDS ORDERED: FENTANYL CITRATE/PF 100MCG/2 ML INJ ONE (11:45)
[2018-08-27] MEDS ORDERED: MIDAZOLAM HCL 2 MG/2 ML VIAL ONE (11:45)
[2018-08-27 13:26] VITALS: BP 132/64
[2018-08-27] MEDS: CIPROFLOXACIN 250 MG TAB PO SCH (13:33)
[2018-08-27] MEDS: FLUCONAZOLE 100 MG TAB PO SCH (13:33)
[2018-08-27 15:50] VITALS: BP 129/60
--- NOTE | 2018-08-27 16:35 | Diagnostic Imaging Report ---
BILATERAL URETERAL STENT INJECTION AND REMOVAL History: Status post bladder resection with ileal conduit. Has bilateral BUD stents and a ileal conduit stent. Board Mill Supervisor: Declan Lima MD Sedation: None. Technique/Findings: Informed written consent was obtained. The urostomy site was prepped and draped in sterile fashion. Sequentially, the right and left BUD ureteral stents were injected with contrast with fluoroscopy demonstrating no evidence of stenosis or leak. Opacification is noted of the ileal conduit. Sutures securing both ureteral stents were cut and the stents were removed with gentle traction. Subsequent injection of the ileal conduit stent demonstrated patency and the stent was removed. The urostomy bag was reapplied. Impression: Bilateral ureteral stent injections and ileal conduit stent injection via urostomy demonstrating no evidence of stricture or leak, therefore the three stents were removed. Signed by: Dr. Declan Lima MD on 08/27/2018 4:32 PM
[2018-08-27 20:00] VITALS: BP 140/63
[2018-08-28] VITALS: BP 148/77
[2018-08-28 04:00] VITALS: BP 132/66
[2018-08-28 08:00] VITALS: BP 116/58
[2018-08-28] MEDS: CIPROFLOXACIN 250 MG TAB PO SCH (09:00)
[2018-08-28] MEDS: PANTOPRAZOLE 40 MG 10ML VIAL IV SCH (09:00)
[2018-08-28] MEDS: FLUCONAZOLE 100 MG TAB PO SCH (09:00)
--- NOTE | 2018-08-28 09:54 | Discharge Summary ---
CONSULTANTS 1. Mateo North MD 2. Juan Urbina MD FINAL DIAGNOSES 1. End-stage renal disease, now committed on dialysis. 2. Status post abdominal skin infection, status post antibiotic treatment. 3. Baseline stage-IV urinary bladder cancer, status post radical cystectomy with bilateral converted ileal conduit. 4. Status post delirium with altered mental status secondary to acute kidney injury uremia. HISTORY: The patient is a pleasant, 73-year-old male who recently had radical cystectomy with ileal conduit. The patient went home and had good urine output and then subsequently stopped making urine and came back in with severe uremia with acute kidney injury. The patient basically will get on dialysis. He is now committed to dialysis. He was in the ICU with electrolyte disorder, very confused but now much improved. He is back to his baseline with respect to his mental status. The delirium has resolved. Patient has received dialysis with a right temporary catheter of the neck that is subsequently now discontinued after a Permcath catheter was placed on the right upper chest area. The patient's dialysis is now set up. The patient is very comfortable. He is ambulatory. He is tolerating all his diet. There is not much urine coming out of the ostomy. The patient will go home today. His home medication has been adjusted. Patient will continue with the Lipitor and the Lantus. He will stopped the hydrochlorothiazide, the NovoLog mix insulin, the lisinopril, the metformin and the Flomax. The patient will continue with his dialysis. New prescriptions are Cipro 250 mg daily for 7 days, Zofran ODT 4 mg sublingual q.4 h. as needed for nausea and vomiting, omeprazole 20 mg daily, fluconazole 100 mg daily for 5 days. The patient is otherwise stable. He will be discharged today for dialysis set up as an outpatient. He will continue with his followup with Dr. Juan Urbina on his postoperative care with the radical cystectomy. The patient is stable and discharged today. Please review the medication reconciliation list. Job#: [id number]
[2018-08-28 12:00] VITALS: BP 136/61
[2018-08-28 16:00] VITALS: BP 154/81
== END 2018-08-28 16:40 | disposition home health service (06) | DRG 871 ==
LOC: ER 08:53 → ERHOLD 10:51 → MED/SURG 18:44 → ICU 22:54 → MED/SURG2 08-23 11:19
PROVIDERS: ADMIT Internal Medicine; ATTEND Internal Medicine
PROC: 5A1D80Z Performance of Urinary Filtration, Prolonged Intermittent, 6-18 hours Per Day (ICD-10-PCS; principal; 2018-08-18)
PROC: 02HV33Z Insertion of Infusion Device into Superior Vena Cava, Percutaneous Approach (ICD-10-PCS; 2018-08-18)
PROC: 5A1D80Z Performance of Urinary Filtration, Prolonged Intermittent, 6-18 hours Per Day (ICD-10-PCS; 2018-08-19)
PROC: 30243N1 Transfusion of Nonautologous Red Blood Cells into Central Vein, Percutaneous Approach (ICD-10-PCS; 2018-08-20)
PROC: 5A1D80Z Performance of Urinary Filtration, Prolonged Intermittent, 6-18 hours Per Day (ICD-10-PCS; 2018-08-21)
PROC: 5A1D80Z Performance of Urinary Filtration, Prolonged Intermittent, 6-18 hours Per Day (ICD-10-PCS; 2018-08-24)
PROC: 5A1D80Z Performance of Urinary Filtration, Prolonged Intermittent, 6-18 hours Per Day (ICD-10-PCS; 2018-08-27)
PROC: 0TP98DZ Removal of Intraluminal Device from Ureter, Via Natural or Artificial Opening Endoscopic (ICD-10-PCS; 2018-08-27)
PROC: 0TP98DZ Removal of Intraluminal Device from Ureter, Via Natural or Artificial Opening Endoscopic (ICD-10-PCS; 2018-08-27)
PROC: 02HV33Z Insertion of Infusion Device into Superior Vena Cava, Percutaneous Approach (ICD-10-PCS; 2018-08-27)
PROC: BT141ZZ Fluoroscopy of Kidneys, Ureters and Bladder using Low Osmolar Contrast (ICD-10-PCS; 2018-08-27)
DX: A41.9 Sepsis, unspecified organism (principal); N17.0 Acute kidney failure with tubular necrosis; N18.6 End stage renal disease; G93.41 Metabolic encephalopathy; I13.11 Hypertensive heart and chronic kidney disease without heart failure, with stage 5 chronic kidney disease, or end stage renal disease; C67.9 Malignant neoplasm of bladder, unspecified; E11.22 Type 2 diabetes mellitus with diabetic chronic kidney disease; Z79.4 Long term (current) use of insulin; D63.8 Anemia in other chronic diseases classified elsewhere; N40.0 Benign prostatic hyperplasia without lower urinary tract symptoms; R65.20 Severe sepsis without septic shock; Z90.6 Acquired absence of other parts of urinary tract; Z99.2 Dependence on renal dialysis; E66.9 Obesity, unspecified; Z68.38 Body mass index [BMI] 38.0-38.9, adult
CPT/HCPCS: 36415; 36556; 36558; 36600; 50431; 70450; 71045; 74176; 74425; 74470; 76937; 80048; 80053; 80202; 80307; 81001; 82140; 82550; 82553; 82805; 82948; 83605; 83735; 84100; 84484; 85025; 85610; 85730; 86704; 86705; 86707; 86850; 86900; 86920; 87040; 87086; 87186; 87340; 90962; 93041; 96372; 97139; 99284; C1750; C1769; J0692; J0696; J1644; J2001; J2060; J2250; J2405; J2543; J2765; J3370; J3480; J3486; J7030; J7040; J7050; P9016; Q4081

== ENCOUNTER 2018-09-03 21:01 | Emergency (ER) | payer OTHER ==
[~2018-09-03] VITALS: Ht 185.4 cm; Wt 122.5 kg
[2018-09-03 22:24] LABS: BASOPHILS % 0.3 % (0.0-1.0); EOSINOPHILS % 0.2 % (0.0-6.0); HEMATOCRIT 24.9 % (38.2-49.6); HEMOGLOBIN 7.8 g/dL (14.0-18.0); LYMPHOCYTES # (AUTO) 0.7 (1.0-3.2); LYMPHOCYTES % 5.7 % (18.0-39.1); MEAN CORPUSCULAR HEMOGLOBIN 30.6 pg (28-32); MEAN CORPUSCULAR HGB CONC 31.3 g/dL (31-35); MEAN CORPUSCULAR VOLUME 97.6 fL (81-99); MONOCYTES # (AUTO) 0.9 (0.2-0.8); MONOCYTES % 7.3 % (4.4-11.3); NEUTROPHILS # (AUTO) 10.3 (2.1-6.9); NEUTROPHILS % 85.8 % (38.7-80.0); PLATELET COUNT 165 x10e3/uL (140-360); RED BLOOD COUNT 2.55 x10e6/uL (4.3-5.7); RED CELL DISTRIBUTION WIDTH 14.6 % (11.7-14.4)
[2018-09-03 22:37] LABS: ALBUMIN 2.5 g/dL (3.5-5.0); ALBUMIN/GLOBULIN RATIO 0.5 (0.8-2.0); ANION GAP 19.4 mmol/L (8-16); CREATININE, SERUM 10.63 mg/dL (0.72-1.25); POTASSIUM 3.4 mmol/L (3.5-5.1)
[2018-09-03 22:43] LABS: CREATINE KINASE MB 2.2 ng/mL (0-5.0)
--- NOTE | 2018-09-03 23:12 | Diagnostic Imaging Report ---
EXAM: CHEST SINGLE (PORTABLE), AP 1 view INDICATION: Shortness of breath, low blood pressure COMPARISON: AP view of the chest August 17, 2018 FINDINGS: LINES/TUBES: Right internal jugular vein tunneled hemodialysis catheter tip terminates at the expected location of the proximal right atrium. LUNGS: Stable vascular congestion. PLEURA: No effusions or pneumothorax. HEART AND MEDIASTINUM: Stable appearance. BONES AND SOFT TISSUES: No acute findings. IMPRESSION: Stable vascular congestion. Signed by: Dr. Bridget Alexander M.D. on 09/03/2018 11:09 PM
== END 2018-09-04 00:51 | disposition home or self-care (01) ==
LOC: ER 21:01
DX: E11.649 Type 2 diabetes mellitus with hypoglycemia without coma (principal); R11.2 Nausea with vomiting, unspecified; F33.0 Major depressive disorder, recurrent, mild
CPT/HCPCS: 36415; 71045; 80053; 82550; 82553; 83690; 84484; 85025; 93005; 99284

== ENCOUNTER 2018-10-20 10:46 | Emergency (ER) | payer OTHER ==
[~2018-10-20] VITALS: Ht 185.4 cm; Wt 115.7 kg
[2018-10-20 11:25] LABS: BASOPHILS % 0.2 % (0.0-1.0); HEMATOCRIT 27.7 % (38.2-49.6); HEMOGLOBIN 8.9 g/dL (14.0-18.0); LYMPHOCYTES # (AUTO) 0.5 (1.0-3.2); LYMPHOCYTES % 2.5 % (18.0-39.1); MEAN CORPUSCULAR HEMOGLOBIN 30.8 pg (28-32); MEAN CORPUSCULAR HGB CONC 32.1 g/dL (31-35); MEAN CORPUSCULAR VOLUME 95.8 fL (81-99); MONOCYTES # (AUTO) 0.7 (0.2-0.8); MONOCYTES % 3.2 % (4.4-11.3); NEUTROPHILS # (AUTO) 19.8 (2.1-6.9); NEUTROPHILS % 93.3 % (38.7-80.0); PLATELET COUNT 280 x10e3/uL (140-360); RED BLOOD COUNT 2.89 x10e6/uL (4.3-5.7); RED CELL DISTRIBUTION WIDTH 15.6 % (11.7-14.4)
[2018-10-20 11:37] LABS: PARTIAL THROMBOPLASTIN TIME 30.1 seconds (23.8-35.5); PROTHROMBIN TIME 14.1 seconds (11.9-14.5)
[2018-10-20 12:26] LABS: ALANINE AMINOTRANSFERASE 11 IU/L (0-55); ALBUMIN 3.2 g/dL (3.5-5.0); ALBUMIN/GLOBULIN RATIO 0.6 (0.8-2.0); ALKALINE PHOSPHATASE 83 IU/L (40-150); ANION GAP 26.4 mmol/L (8-16); BLOOD UREA NITROGEN 51 mg/dL (7-26); BUN/CREATININE RATIO 5 (6-25); CALCIUM 9.1 mg/dL (8.4-10.2); CARBON DIOXIDE 22 mmol/L (22-29); CHLORIDE 97 mmol/L (98-107); CREATINE KINASE 90 IU/L (30-200); CREATININE, SERUM 9.65 mg/dL (0.72-1.25); EST GLOMERULAR FILTRATION RATE 6 ML/MIN (60-); GLUCOSE 134 mg/dL (74-118); POTASSIUM 4.4 mmol/L (3.5-5.1); SODIUM 141 mmol/L (136-145)
[2018-10-20] MEDS ORDERED: ONDANSETRON HCL INJ 2 MG/ML VIAL IV STA (13:12)
[2018-10-20 13:35] LABS: CLARITY,URINE SL CLOUDY (CLEAR); COLOR,URINE YELLOW (YELLOW); KETONES,URINE NEGATIVE (NEGATIVE); LEUKOCYTE ESTERASE ,URINE 1+ (NEGATIVE); NITRITE,URINE NEGATIVE (NEGATIVE); PROTEIN,URINE DIPSTICK 1+ (NEGATIVE); URINE UROBILINOGEN 0.2 mg/dL (0.2 - 1)
[2018-10-20 13:36] LABS: BILIRUBIN,URINE NEGATIVE (NEGATIVE)
[2018-10-20 13:44] LABS: BACTERIA,URINE MANY /HPF; EPITHELIAL CELLS,URINE RARE /LPF
[2018-10-20] MEDS ORDERED: VANCOMYCIN 1GM/NS 250 ML 250 ML IV ONE (13:45)
[2018-10-20] MEDS ORDERED: GENTAMICIN SULFATE 100 MG in SODIUM CHLORIDE 0.9% 100 ML 100 ML IV ONE (14:00)
--- NOTE | 2018-10-20 14:45 | Diagnostic Imaging Report ---
Examination: Single AP view of the chest. COMPARISON: 09/10/2018 INDICATION: Weakness DISCUSSION: Right internal jugular tunneled hemodialysis catheter is stable in position, with the tip projecting over the superior cavoatrial junction. The lungs remain well-inflated and without focal consolidation, pleural effusion, or pneumothorax. Stable cardiomediastinal contour without overt pulmonary edema. No acute osseous abnormality. IMPRESSION: No acute cardiopulmonary abnormality. Signed by: Dr. Rene Posey M.D. on 10/20/2018 2:41 PM
[2018-10-20] MEDS ORDERED: GENTAMICIN SULFATE 40 MG/ML 2 ML VIAL ONE (15:24)
[2018-10-20] MEDS ORDERED: SODIUM CHLORIDE 0.9% 100 ML ONE (15:25)
== END 2018-10-20 16:43 | disposition home or self-care (01) ==
LOC: ER 10:46
DX: R53.1 Weakness (principal); R11.2 Nausea with vomiting, unspecified; E11.22 Type 2 diabetes mellitus with diabetic chronic kidney disease; I12.0 Hypertensive chronic kidney disease with stage 5 chronic kidney disease or end stage renal disease; N18.6 End stage renal disease; Z99.2 Dependence on renal dialysis; Z85.46 Personal history of malignant neoplasm of prostate; Z85.51 Personal history of malignant neoplasm of bladder
CPT/HCPCS: 36415; 71045; 80053; 81001; 82550; 82553; 83880; 84484; 85025; 85610; 85730; 86850; 86900; 87040; 87086; 87186; 93005; 99284; J1580; J2405; J3370; J7050

== ENCOUNTER 2018-11-12 07:31 | Observation (INO) | payer MEDICARE, OTHER ==
[~2018-11-12] VITALS: Ht 185.4 cm; Wt 111.1 kg
[2018-11-12 08:46] LABS: ALBUMIN 2.5 g/dL (3.5-5.0); ALBUMIN/GLOBULIN RATIO 0.6 (0.8-2.0); ANION GAP 16.5 mmol/L (8-16); CALCIUM 9.1 mg/dL (8.4-10.2); CREATININE, SERUM 5.92 mg/dL (0.72-1.25); POTASSIUM 3.5 mmol/L (3.5-5.1)
[2018-11-12] MEDS ORDERED: DEXTROSE 50% SYRINGE 50 ML IV ONE (08:59)
[2018-11-12] MEDS ORDERED: DEXTROSE 50% SYRINGE 50 ML IV STA (09:01)
--- NOTE | 2018-11-12 09:03 | NUR ---
PT B/S [address] MARTINEZ GAVE PT PUDDING, SANDWICH AND APPLE TO JUICE TO INCREASE B/S
[2018-11-12 09:06] LABS: EOSINOPHILS % 0.2 % (0.0-6.0); HEMATOCRIT 21.5 % (38.2-49.6); LYMPHOCYTES # (AUTO) 0.5 (1.0-3.2); LYMPHOCYTES % 10.2 % (18.0-39.1); MEAN CORPUSCULAR HEMOGLOBIN 29.9 pg (28-32); MEAN CORPUSCULAR HGB CONC 31.2 g/dL (31-35); MONOCYTES # (AUTO) 0.1 (0.2-0.8); MONOCYTES % 2.4 % (4.4-11.3); NEUTROPHILS % 85.7 % (38.7-80.0); PLATELET COUNT 66 x10e3/uL (140-360); RED BLOOD COUNT 2.24 x10e6/uL (4.3-5.7)
[2018-11-12 09:07] LABS: HEMOGLOBIN 6.7 g/dL (14.0-18.0)
--- NOTE | 2018-11-12 09:08 | NUR ---
Trang from lab called to report hgb 6.7 and plt [address] Informed Dr. Ortega of these critical values as well as primary nurse TRACY Albrecht.
[2018-11-12] MEDS ORDERED: SODIUM CHLORIDE 0.9% 250ML 250 ML IV ONE (09:15)
[2018-11-12] MEDS ORDERED: FUROSEMIDE INJ 10 MG/ML 2 ML VIAL IV PRN (09:15)
[2018-11-12] MEDS ORDERED: FAMOTIDINE 20 MG/2 ML VIAL IV NR (09:30)
--- NOTE | 2018-11-12 09:39 | NUR ---
PT HAD BM AT 0939
[2018-11-12] MEDS ORDERED: DIPHENHYDRAMINE HCL INJ 50 MG/ML VIAL IV NR (09:45)
[2018-11-12] MEDS ORDERED: RENVELA0.8 GM PO (10:04)
[2018-11-12] MEDS ORDERED: TYLENOL WITH C1 EACH PO (10:05)
--- NOTE | 2018-11-12 10:23 | NUR ---
Dr. North repaged at this time
[2018-11-12 10:31] LABS: CREATINE KINASE MB 1.2 ng/mL (0-5.0)
--- NOTE | 2018-11-12 13:39 | NUR ---
SPOKE WITH DR ROBINS'S ASSOCIATE AROUND 1000 PER ASSOCIATE START BLOOD TRANSFUSION WITH DIALYSIS TOMORROW MORNING
[2018-11-12] MEDS ORDERED: DEXTROSE 50% SYRINGE 50 ML IV PRN (15:45)
[2018-11-12 16:22] VITALS: BP 134/60
--- NOTE | 2018-11-12 17:14 | NUR ---
RECVD PT, STABLE. PER DR Nicole PT TO GET BLOOD 11/13 WITH DIALYSIS, SAW PT ON UNIT.
[2018-11-12 17:30] VITALS: BP 134/60
[2018-11-12 18:30] LABS: CREATINE KINASE MB 1.3 ng/mL (0-5.0)
--- NOTE | 2018-11-12 19:33 | NUR ---
Patient received lying in bed. Family at bedside. AAO x 3. Patient had no complaints of pain. Respirations even and non-labored. Ileostomy bag in place. Fall precautions maintained. Patient instructed to call for assistance when needed. Call light within reach.
[2018-11-12 20:00] VITALS: BP 117/57
--- NOTE | 2018-11-12 20:35 | Consultation ---
DATE OF CONSULTATION: ATTENDING PHYSICIAN: Dr. Rudolph Polanco REASON FOR CONSULTATION: End-stage renal disease. HISTORY OF PRESENT ILLNESS: Patient is 73-year-old male with past medical history of ESRD, on hemodialysis, Xrqcnx-Tmuamshde-Rloebc; stage 4 urinary bladder cancer, status post radical cystectomy with bilateral converted ileal conduit, being followed by Dr. Stephenson as an outpatient oncology, was admitted with severe anemia. Patient denies having any black tarry stool or any hematemesis or melena. Hemoglobin was found to be at 6.7. Also, he was hypoglycemic with glucose of 37. Patient is currently getting chemo and per patient, his appetite is very poor and not being eating much. Currently denies having any nausea, vomiting, or diarrhea. PAST MEDICAL HISTORY: Stage 4 bladder cancer, ESRD, hypertension, diabetes. PAST SURGICAL HISTORY: Radical cystectomy, right jugular tunneled catheter. SOCIAL HISTORY: No history of tobacco, alcohol, intravenous drug abuse. Lives at home with . FAMILY HISTORY: No history of any kidney disease. ALLERGIES: NO KNOWN DRUG ALLERGIES. MEDICATIONS: As per MAR. REVIEW OF SYSTEMS: Pertinent positive ones as per HPI. PHYSICAL EXAMINATION: VITAL SIGNS: Blood pressure 134/60, pulse of 64, respiration 21, temperature 97.2. GENERAL: The patient is awake and alert, oriented x3, not in apparent distress. HEENT: PERRLA. Extraocular muscles intact. NECK: No JVD. HEART: S1 and S2. LUNGS: Clear to auscultation bilaterally. ABDOMEN: Soft. Bowel sounds positive. EXTREMITIES: No edema. NEUROLOGICAL: No focal deficits. LABS: White count 4.6, hemoglobin 6.7, platelet count is 66,000. Sodium is 138, potassium 3.5, chloride 100, CO2 25, BUN 30, creatinine 5.9, glucose 37. Troponin negative. Albumin is 2.5. ASSESSMENT AND PLAN: 1. End-stage renal disease. Continue with Tlnfiv-Cgbjqjzyx-Rbxzji dialysis. 2. Anemia. Patient to get 2 units of packed red blood cell transfusion with dialysis tomorrow. Will discuss with oncology when patient will be okay to start Epogen as with active cancer. 3. Stage 4 bladder cancer, status post surgery. No acute issues. 4. Diabetes type 2 with hypoglycemia. Will hold off all diabetic medications for now. Dr. Polanco is following. 5. Hypertension, controlled. I want to thank Dr. Polanco for the consult. I discussed with the at bedside. Job#: [id number]
[2018-11-12 20:45] VITALS: BP 117/57
[2018-11-13] VITALS: BP 113/59
[2018-11-13 04:00] VITALS: BP 106/55
[2018-11-13 05:36] LABS: BASOPHILS % 0.2 % (0.0-1.0); EOSINOPHILS % 0.7 % (0.0-6.0); HEMATOCRIT 21.3 % (38.2-49.6); LYMPHOCYTES # (AUTO) 0.6 (1.0-3.2); LYMPHOCYTES % 10.2 % (18.0-39.1); MEAN CORPUSCULAR HEMOGLOBIN 30.7 pg (28-32); MEAN CORPUSCULAR VOLUME 99.1 fL (81-99); MONOCYTES # (AUTO) 0.3 (0.2-0.8); MONOCYTES % 4.9 % (4.4-11.3); NEUTROPHILS % 82.4 % (38.7-80.0); PLATELET COUNT 67 x10e3/uL (140-360); RED BLOOD COUNT 2.15 x10e6/uL (4.3-5.7); RED CELL DISTRIBUTION WIDTH 15.1 % (11.7-14.4)
[2018-11-13 05:45] LABS: HEMOGLOBIN 6.6 g/dL (14.0-18.0)
--- NOTE | 2018-11-13 05:52 | NUR ---
A message was left on Dr. Polanco's voice-mail regarding critical lab value of Hgb 6.6. Awaiting call back.
[2018-11-13 06:02] LABS: ALBUMIN/GLOBULIN RATIO 0.6 (0.8-2.0); ANION GAP 15.6 mmol/L (8-16); CALCIUM 8.3 mg/dL (8.4-10.2); CREATININE, SERUM 7.97 mg/dL (0.72-1.25); POTASSIUM 3.6 mmol/L (3.5-5.1)
[2018-11-13 07:01] LABS: CREATINE KINASE MB 1.1 ng/mL (0-5.0)
--- NOTE | 2018-11-13 07:03 | NUR ---
Walking rounds done and report received. Patient is awake and alertx3 in NAD. at bedside. Patient was instructed to call for assistance and verbalized understanding. Bed in lowest position, locked and call miller within reach.
--- NOTE | 2018-11-13 07:10 | NUR ---
Patient informed about recommended hemodialysis procedure. Patient verbalized understanding. Patient voluntarily signed "Disclosure and Consent" form.
--- NOTE | 2018-11-13 07:18 | NUR ---
Patient resting comfortably. Shift report given to oncoming nurse.
[2018-11-13 08:30] VITALS: BP 114/64
--- NOTE | 2018-11-13 09:21 | NUR ---
SOCIAL WORK INITIAL ASSESSMENT Scooper to bedside to discuss plan of care with patient/family. CM/SW role and care transitions discussed. Anticipated discharge plan discussed along with duration of care. CM/SW discussed patients right to make decisions in care. CM/SW work hours given. Patient lives: IN HOUSE WITH LORIE Admit/Transfer: VIA ED FROM HOME POA/Emergency contact: LORIE [phone] Current/Previous Home Health: [facility] 2 TO 3 TIMES A WEEK PCP/Follow-up Care: ZACH Current/Previous DME: [facility] [employer] Other Services: NONE Employment Status: RETIRED Areas of Concerns: NONE Referral Needs: NONE Education Needs: NONE IMM/GARCIA given and signed (if applicable): NA Goal for discharge: RETURN HOME INDEPENDENTLY CM/SW left business card at the bedside with contact information. Name and number was also written on the patients whiteboard. Patient verbalized understanding of discussion. CM will follow-up with ongoing discharge and transition of care needs.
--- NOTE | 2018-11-13 09:30 | NUR ---
Dialysis nurse at bedside.
[2018-11-13] MEDS ORDERED: SODIUM CHLORIDE 0.9% 1000ML 2,000 ML ONE (09:56)
[2018-11-13] MEDS ORDERED: SODIUM CHLORIDE 0.9% 250ML 250 ML ONE (10:48)
[2018-11-13 11:05] VITALS: BP 114/64
--- NOTE | 2018-11-13 11:11 | Discharge Summary ---
PRIMARY CARE PHYSICIAN: Dr. Melanie Burrows. DISTRIBUTION ASSOCIATE: Dr. Mateo North. FINAL DIAGNOSES 1. Chronic anemia secondary to chemotherapy for a urinary bladder cancer, advanced, stage IV. 2. End-stage renal disease on dialysis. SUMMARY: Patient came in with hemoglobin and hematocrit of 6.6 and 21.3. Patient is otherwise stable. He will require dialysis with 2 units blood transfusion. The patient is stable at this time. After dialysis, the patient does want to go home. The patient will be discharged home, resume home medication. He should follow up with his family doctor as an outpatient for repeated blood work. He may continue to follow up with his oncologist, Dr. Zoltan Bradley. Patient is stable. Discharge home today after dialysis. Job#: [id number]
[2018-11-13 12:00] VITALS: BP 123/58
--- NOTE | 2018-11-13 14:30 | NUR ---
Dialysis complete and post transfusion H/H ordered for 1545.
[2018-11-13] MEDS ORDERED: SODIUM CHLORIDE 0.9% 250ML 500 ML IV PRN (14:45)
[2018-11-13] MEDS ORDERED: HEPARIN SOD (PORCINE) 1000 UNIT/ML SDV IV PRN (14:45)
[2018-11-13] MEDS ORDERED: SODIUM CHLORIDE 0.9% 1000ML 2,000 ML IV PRN (14:45)
--- NOTE | 2018-11-13 17:00 | NUR ---
Patient refused to wait for H/H results. Written instructions provided. Patient will follow up with MD. IV dc'd, cath intact and small dressing applied.
== END 2018-11-13 17:19 | disposition home or self-care (01) ==
LOC: ER 07:31 → INTOOBSV 10:25 → ERHOLD 10:25 → IMCU 16:02
PROVIDERS: ADMIT Internal Medicine; ATTEND Internal Medicine
DX: D64.81 Anemia due to antineoplastic chemotherapy (principal); E11.649 Type 2 diabetes mellitus with hypoglycemia without coma; Z87.891 Personal history of nicotine dependence; E11.22 Type 2 diabetes mellitus with diabetic chronic kidney disease; I12.0 Hypertensive chronic kidney disease with stage 5 chronic kidney disease or end stage renal disease; N18.6 End stage renal disease; Z99.2 Dependence on renal dialysis; Z79.4 Long term (current) use of insulin; R53.81 Other malaise; C67.9 Malignant neoplasm of bladder, unspecified
CPT/HCPCS: 36415 ×2; 36430; 80053 ×2; 82550 ×2; 82553 ×2; 82948 ×2; 84484 ×2; 85025 ×2; 86706; 86850; 86900; 86920; 90935; 99284; G0378 ×2; J1644; J7030; J7050; J7799; P9016; 90962

== ENCOUNTER 2018-12-15 20:03 | Emergency (ER) | payer MEDICARE ==
[~2018-12-15] VITALS: Ht 185.4 cm; Wt 111.1 kg
[~2018-12-15 20:03] MED LIST changes: +RENVELA0.8 GM PO; +TYLENOL WITH C1 EACH PO
[2018-12-15 21:48] LABS: BASOPHILS # (AUTO) 0.1 (0.0-0.1); EOSINOPHILS # (AUTO) 0.8 (0.0-0.4); EOSINOPHILS % 5.6 % (0.0-6.0); HEMATOCRIT 31.6 % (38.2-49.6); HEMOGLOBIN 9.4 g/dL (14.0-18.0); LYMPHOCYTES # (AUTO) 1.5 (1.0-3.2); MEAN CORPUSCULAR HGB CONC 29.7 g/dL (31-35); MEAN CORPUSCULAR VOLUME 97.5 fL (81-99); MONOCYTES # (AUTO) 1.5 (0.2-0.8); MONOCYTES % 10.8 % (4.4-11.3); NEUTROPHILS # (AUTO) 9.7 (2.1-6.9); NEUTROPHILS % 69.2 % (38.7-80.0); PLATELET COUNT 328 x10e3/uL (140-360); RED BLOOD COUNT 3.24 x10e6/uL (4.3-5.7)
--- NOTE | 2018-12-15 21:57 | Diagnostic Imaging Report ---
EXAMINATION: CHEST 2 VIEWS INDICATION: cough, sob COMPARISON: 10/20/2018 FINDINGS: PA and lateral views TUBES and LINES: Right internal jugular tunneled dialysis catheter stable in position. LUNGS: Lungs are well inflated. Central pulmonary venous congestion. There is no evidence of pneumonia or jaquan pulmonary edema. PLEURA: No pleural effusion or pneumothorax. HEART AND MEDIASTINUM: The cardiomediastinal silhouette is unremarkable. BONES AND SOFT TISSUES: No acute osseous lesion. Soft tissues are unremarkable. UPPER ABDOMEN: No free air under the diaphragm. IMPRESSION: Central pulmonary venous congestion. Signed by: DR. Fabien Mcallister MD on 12/15/2018 9:54 PM
[2018-12-15 22:03] LABS: ALBUMIN 2.8 g/dL (3.5-5.0); ALBUMIN/GLOBULIN RATIO 0.6 (0.8-2.0); ANION GAP 19.3 mmol/L (8-16); CREATININE, SERUM 9.08 mg/dL (0.72-1.25); POTASSIUM 3.3 mmol/L (3.5-5.1)
[2018-12-15 22:12] LABS: CREATINE KINASE MB 1.4 ng/mL (0-5.0)
[2018-12-15 23:10] VITALS: BP 130/75
== END 2018-12-15 23:28 | disposition home or self-care (01) ==
LOC: ER 20:03
DX: R06.00 Dyspnea, unspecified (principal); R05 Cough; J20.9 Acute bronchitis, unspecified; I12.0 Hypertensive chronic kidney disease with stage 5 chronic kidney disease or end stage renal disease; E11.22 Type 2 diabetes mellitus with diabetic chronic kidney disease; N18.6 End stage renal disease; Z99.2 Dependence on renal dialysis; E78.5 Hyperlipidemia, unspecified; Z85.51 Personal history of malignant neoplasm of bladder
CPT/HCPCS: 36415; 71046; 80053; 82550; 82553; 83880; 84484; 85025; 87400; 93005; 99284

== ENCOUNTER 2018-12-31 04:52 | Inpatient (IN) | payer MEDICARE ==
[~2018-12-31] VITALS: Ht 185.4 cm; Wt 111.1 kg
[2018-12-31] MEDS ORDERED: VANCOMYCIN 1GM/NS 250 ML 250 ML IV ONE (05:15)
[2018-12-31 05:25] LABS: BASOPHILS # (AUTO) 0.1 (0.0-0.1); BASOPHILS % 0.5 % (0.0-1.0); EOSINOPHILS # (AUTO) 0.3 (0.0-0.4); EOSINOPHILS % 2.7 % (0.0-6.0); HEMATOCRIT 36.7 % (38.2-49.6); HEMOGLOBIN 11.4 g/dL (14.0-18.0); LYMPHOCYTES # (AUTO) 1.2 (1.0-3.2); LYMPHOCYTES % 11.4 % (18.0-39.1); MEAN CORPUSCULAR HEMOGLOBIN 30.9 pg (28-32); MEAN CORPUSCULAR HGB CONC 31.1 g/dL (31-35); MEAN CORPUSCULAR VOLUME 99.5 fL (81-99); MONOCYTES % 9.7 % (4.4-11.3); NEUTROPHILS # (AUTO) 7.6 (2.1-6.9); NEUTROPHILS % 75.1 % (38.7-80.0); PLATELET COUNT 139 x10e3/uL (140-360); RED BLOOD COUNT 3.69 x10e6/uL (4.3-5.7); RED CELL DISTRIBUTION WIDTH 19.3 % (11.7-14.4)
[2018-12-31 05:43] LABS: INR 0.94; PROTHROMBIN TIME 13.4 seconds (11.9-14.5)
[2018-12-31 05:44] LABS: PARTIAL THROMBOPLASTIN TIME 30.7 seconds (23.8-35.5)
[2018-12-31 05:55] LABS: CREATINE KINASE MB 0.7 ng/mL (0-5.0)
[2018-12-31 05:59] LABS: ALBUMIN 3.4 g/dL (3.5-5.0); ALBUMIN/GLOBULIN RATIO 0.9 (0.8-2.0); ANION GAP 15.6 mmol/L (8-16); CALCIUM 9.5 mg/dL (8.4-10.2); CREATININE, SERUM 6.85 mg/dL (0.72-1.25); MAGNESIUM 1.6 MG/DL (1.3-2.1); POTASSIUM 3.6 mmol/L (3.5-5.1)
[2018-12-31] MEDS: MEROPENEM 500MG 500 MG in SODIUM CHLORIDE 0.9% 50ML 50 ML IV SCH ×2 (06:01→08:19)
[2018-12-31 06:02] LABS: BILIRUBIN,URINE NEGATIVE (NEGATIVE); CLARITY,URINE CLOUDY (CLEAR); COLOR,URINE YELLOW (YELLOW); KETONES,URINE NEGATIVE (NEGATIVE); LEUKOCYTE ESTERASE ,URINE 1+ (NEGATIVE); NITRITE,URINE NEGATIVE (NEGATIVE); PROTEIN,URINE DIPSTICK 1+ (NEGATIVE); URINE UROBILINOGEN 0.2 mg/dL (0.2 - 1)
--- NOTE | 2018-12-31 06:11 | Diagnostic Imaging Report ---
EXAMINATION: CHEST SINGLE (PORTABLE) COMPARISON: Chest x-ray 12/15/2018 INDICATION: Altered level of consciousness ^AMS ^[id number] ^[id number] DISCUSSION: Frontal view of the chest obtained at 0558 hours. HEART AND MEDIASTINUM: The cardiomediastinal silhouette is unremarkable. LINES: Dual lumen central venous catheter remains in the SVC. LUNGS: The lungs are well inflated and clear. No pneumonia or pulmonary edema. PLEURA: No pleural effusion or pneumothorax. BONES AND SOFT TISSUES: No focal osseous lesion. The soft tissues are normal. IMPRESSION: Stable chest. No active disease. Signed by: Dr. Loren England MD on 12/31/2018 6:08 AM
--- NOTE | 2018-12-31 06:21 | Diagnostic Imaging Report ---
EXAMINATION: Head CT without contrast. HISTORY:Altered mental status. COMPARISON:CT brain from 08/16/2018. TECHNIQUE: Multidetector axial images were obtained from the foramen magnum to the vertex without contrast. The images were reconstructed using brain and bone algorithms. Thin section brain images were reformatted into coronal and sagittal planes. Dose modulation, iterative reconstruction, and/or weight based adjustment of the mA/kV was utilized to reduce the radiation dose to as low as reasonably achievable. Intravenous contrast: None IMAGE QUALITY: Acceptable. FINDINGS: Skull/scalp: No lytic or blastic. lesions. No surgical changes. Parenchyma: Nonspecific few, scattered supratentorial white matter hypodensity are likely related to small vessel ischemic changes. No acute hemorrhage, mass or acute major vascular territorial infarct. Arteries: No density suggestive of thrombosis. Dural sinuses: No abnormal density suggestive of thrombosis. Ventricles: No hydrocephalus or displacement. Extra-axial spaces: No abnormal density. Brain volume: Mild generalized cerebral volume loss. Craniocervical junction: No mass, Chiari malformation, or basilar invagination. Sella: No mass. Paranasal/mastoid sinuses: Imaged portions unremarkable. IMPRESSION: No acute intracranial abnormality. No change since CT brain from 08/16/2018. Chronic findings: 1. Mild generalized cerebral volume loss. 2. Mild supratentorial white matter microvascular ischemic changes. Signed by: Dr. Theresa Sylvester M.D. on 12/31/2018 6:17 AM
[2018-12-31 06:24] LABS: WBC,URINE (MAN) 21-50 /HPF (0-5)
[2018-12-31] MEDS ORDERED: CIPROFLOXACIN500 MG PO (06:24)
[2018-12-31] MEDS ORDERED: VITAMIN D31000 UNIT PO (06:24)
[2018-12-31] MEDS ORDERED: TYLENOL # 31 EA PO (06:24)
[2018-12-31] MEDS ORDERED: ZOFRAN4 MG SL (06:24)
[2018-12-31] MEDS ORDERED: MEGESTROL400 MG/10 PO (06:24)
[2018-12-31] MEDS ORDERED: NOVOLOG MI100 UNIT/1 SQ (06:24)
[2018-12-31] MEDS ORDERED: FERROUS SULFAT325 MG PO (06:24)
[2018-12-31] MEDS ORDERED: PANTOPRAZOLE SO40 MG PO (06:24)
[2018-12-31 06:25] LABS: BACTERIA,URINE MANY /HPF; EPITHELIAL CELLS,URINE RARE /LPF; RBC,URINE 0-5 /HPF (0-5)
--- NOTE | 2018-12-31 07:08 | NUR ---
BEDSIDE SHIFT REPORT FROM JAZMINE THOMAS; PATIENT LYING IN BED, FAMILY AT BEDSIDE; IV VANC INFUSING; PATIENT AOX2; WILL CONTINUE TO MONITOR
[2018-12-31] MEDS ORDERED: ONDANSETRON HCL INJ 2MG/ML 2ML 2 MG/ML VIAL IV PRN (08:00)
[2018-12-31] MEDS ORDERED: DEXTROSE 50% SYRINGE 50 ML IV PRN (08:00)
--- NOTE | 2018-12-31 08:17 | NUR ---
CARD OBTAINED FOR DR. RUSHING [phone], WHOM WAS TREATING UTI; PER DOCTOR HASEEB, CALL FOR RECORDS OF CULTURE; 1ST ATTEMPT MADE AT 0815; OFFICE OPENS AT 0830; WILL ATTEMPT AGAIN
--- NOTE | 2018-12-31 09:19 | NUR ---
ATEMPTED TO CALL DR. ANCA RUSHING, , SPOKE WITH CILIA; URINE MICRO TO BE FAXED OVER
--- NOTE | 2018-12-31 09:20 | Diagnostic Imaging Report ---
EXAM: CT Abdomen and Pelvis WITHOUT contrast INDICATION: Stone protocol. COMPARISON: CT Abdomen/Pelvis 08/16/18. TECHNIQUE: Abdomen and pelvis were scanned utilizing a multidetector helical scanner from the lung base to the pubic symphysis without administration of IV contrast. Absence of intravenous contrast decreases sensitivity for detection of focal lesions and vascular pathology. Coronal and sagittal reformations were obtained. Renal stone protocol was performed. Dose modulation, iterative reconstruction, and/or weight based adjustment of the mA/kV was utilized to reduce the radiation dose to as low as reasonably achievable. IV CONTRAST: None. ORAL CONTRAST: Water RADIATION DOSE: Total DLP: 833 mGy*cm Estimated effective dose: (DLP x 0.015 x size factor) mSv COMPLICATIONS: None FINDINGS: LINES and TUBES: None. LOWER THORAX: Increased tree-in-bud opacities at the lung bases. There is a new area of patchy consolidative opacity in the left lower lobe on image 35. HEPATOBILIARY: No focal hepatic lesions. No biliary ductal dilation. GALLBLADDER: No radio-opaque stones or sludge. No wall thickening. SPLEEN: No splenomegaly. PANCREAS: No focal masses or ductal dilatation. ADRENALS: No adrenal nodules KIDNEYS/URETERS: No hydronephrosis. No cystic or solid mass lesions. No stones. Interval removal of bilateral ureteral stents and ileal conduit stent. GI TRACT: No evidence of distention or wall thickening. Normal appendix. PELVIC ORGANS/BLADDER: Status post cystectomy and prostatectomy. There is an ileal conduit. LYMPH NODES: Interval decrease in size of aortocaval lymph nodes, for example a 1.2 cm short axis left para-aortic lymph node on series 3, image 73, previously up to 1.5 cm short axis. VESSELS: There are scattered atherosclerotic calcifications in the aorta and branch vessels. PERITONEUM / RETROPERITONEUM: No free air or fluid. BONES: No acute osseous abnormality. Degenerative changes of the visualized spine. SOFT TISSUES: There is a right lower quadrant ostomy. There is a parastomal hernia in the right lower quadrant which contains a small bowel loop without evidence of incarceration/obstruction. IMPRESSION: Status post interval removal of bilateral ureteral and ileal conduit stents without evidence of hydronephrosis or stone. Status post cystectomy, prostatectomy, and ileal conduit creation. Increasing tree in bud opacities at the lung bases with new patchy consolidative opacity in the left lower lobe, consistent with aspiration or pneumonia. Consider follow-up chest CT in 3 months to assess for resolution. Signed by: Dr. Declan Lima MD on 12/31/2018 9:17 AM
--- NOTE | 2018-12-31 09:28 | NUR ---
RESULTS FROM DR. RUSHING OFFICE PLACED ON CHART
--- NOTE | 2018-12-31 11:16 | NUR ---
REC'D PT IN WALKING ROUNDS WITH IRVIN BRYAN RN. PT/FAMILY UPDATED ON POC/PENDING ADMIT.
[2018-12-31] MEDS: INSULIN LISPRO 100 UNIT/1 ML 3ML VIAL SQ SCH ×3 (12:17→21:18)
--- NOTE | 2018-12-31 14:12 | NUR ---
NO BED AVAILABLE OF YET AND PT./FAMILY HAVE BEEN UPDATED
[2018-12-31 14:32] LABS: CREATINE KINASE MB 0.7 ng/mL (0-5.0)
--- NOTE | 2018-12-31 15:17 | NUR ---
central supply was called to bring extra urostomy bags--rafael #[id number]/70mm/2 01/04 in.
--- NOTE | 2018-12-31 15:30 | NUR ---
complete urostomy bag change and pt tolerated well.
--- NOTE | 2018-12-31 16:13 | NUR ---
PT/FAMILY INFORMED OF ADMIT TO 299
--- NOTE | 2018-12-31 16:33 | NUR ---
ROOM NOT READY AT THIS TIME TO RECEIVE PT.
--- NOTE | 2018-12-31 16:49 | NUR ---
REPORT CALLED FOR THIS PATIENT TO GO TO RM 299
[2018-12-31 17:10] VITALS: BP 194/89
--- NOTE | 2018-12-31 17:10 | NUR ---
PATIENT RECEIVED FROM ER PER STRETCHER. ALERT AND VERBALLY RESPONSIVE. SKIN WARM AND DRY TO TOUCH. UROSTOMY TO MID ABDOMEN WITH CLEAR YELLOW URINE, RIGHT UPPER CHEST DIALYSIS PORT WITH DRESSING DRY AND INTACT. RESPIRATION EVEN AND UNLABORED, ABDOMEN SOFT AND NON DISTENDED. RIGHT FOOT BIGGER THAN LEFT FOOT, PATIENT STATED THAT HE HAD POLIO WHEN HE WAS YOUNG, NO EDEMA NOTED. YELLOW SOCKS APPLIED. PATIENT ORIENTED TO SURROUNDINGS, BED IN LOWER POSITION, CALL LIGHT AT REACH. INSTRUCTED TO CALL FOR ASSISTANCE NEEDED. AT BED SIDE.
--- NOTE | 2018-12-31 18:30 | NUR ---
SPOKE WITH MD REGARDING ABNORMAL LAB B/P. NEW ORDER RECEIVED.
[2018-12-31] MEDS: NIFEDIPINE CR 30 MG TAB PO SCH (18:44)
--- NOTE | 2018-12-31 18:49 | Consultation ---
DATE OF CONSULTATION: 12/31/2018 Renal Consultation REASON FOR CONSULTATION: End-stage renal disease. HISTORY OF PRESENT ILLNESS: A 73-year-old male with end-stage renal disease on hemodialysis Friday, Friday, Friday, who was brought to [facility] for altered mental status and weakness. The patient has stage IV bladder cancer status post radical cystectomy with bilateral ileal conduit followed by Dr. Stephenson as an outpatient. According to , who is at bedside, the patient was found to have a urinary tract infection and was started on Cipro 12/29/2018. The patient's condition, however, continued to worsen and he was brought to the hospital. The patient is unable to give any other further history. REVIEW OF SYSTEMS: As above. All other systems negative. PAST MEDICAL HISTORY: 1. Stage IV bladder cancer, status post radical cystectomy with bilateral converted ileal conduit, followed by Dr. Stephenson as an outpatient. 2. End-stage renal disease on hemodialysis Friday, Friday, Friday through tunneled dialysis catheter. 3. Hypertension. 4. Diabetes. PAST SURGICAL HISTORY: 1. Right tunneled dialysis catheter. 2. Radical cystectomy. SOCIAL HISTORY: No tobacco. No alcohol. No IV drugs. Lives at home with his . FAMILY HISTORY: No history of kidney disease. ALLERGIES: NO KNOWN DRUG ALLERGIES. CURRENT MEDICATIONS: See list. PHYSICAL EXAMINATION: VITAL SIGNS: Blood pressure 135/78, pulse 71, respiratory rate 19, and temperature 98.2. GENERAL: No apparent distress. HEENT: Oropharynx clear. No scleral icterus. No peripheral edema. NECK: Supple. No elevation of jugular venous pressure. No lymphadenopathy. CHEST: Clear to auscultation anteriorly bilaterally. CARDIOVASCULAR: Regular rhythm. ABDOMEN: Soft. Positive bowel sounds. Ileostomy bag with minimal urine. No tenderness. No rebound. EXTREMITIES: Trace edema. No clubbing. No cyanosis. SKIN: Warm. LABS: Sodium 138, potassium 3.6, chloride 101, CO2 of 25, BUN 38, creatinine 6.85. White count 10.9, hemoglobin 11.4, hematocrit 36.7, platelets 139. Urinalysis cloudy, but 1+ leukocyte esterase, 21-50 wbc's. ASSESSMENT AND PLAN: 1. End-stage renal disease. We will continue hemodialysis Friday, Friday, Friday. 2. Electrolytes acceptable. 3. Anemia secondary to chronic kidney disease. We will now give Epogen. 4. Metabolic encephalopathy, suspect secondary to urinary tract infection. We will continue current antibiotics. I am always concerned of tunneled catheter infection. Also reviewing his CT scan, there was a new patchy consolidative opacity in the left lower lobe consistent with aspiration or pneumonia. 5. Euvolemic on exam. MD MAGDY Ohara/MODL /[id number]
--- NOTE | 2018-12-31 18:56 | NUR ---
PT IS RESTING IN BED WITH AT BEDSIDE. NO RESPIRATORY DISTRESS NOTED. BED IN THE LOWEST POSITION, LOCKED, BED ALARM ON, AND CALL LIGHT WITHIN REACH. WILL CONTINUE TO MONITOR.
[2018-12-31 20:25] VITALS: BP 153/76
--- NOTE | 2018-12-31 21:04 | NUR ---
PAGE DR MARLOW FOR ORDERS. AWAITING CALL BACK
--- NOTE | 2018-12-31 22:24 | NUR ---
PATIENT ATTEMPTING TO GET OUT OF BED, AGITATED, AND FIGHTING WITH . SPOKE WITH DR. MARLOW. RECEIVED ORDERS.
[2018-12-31] MEDS ORDERED: ZIPRASIDONE 20 MG VIAL IM PRN (22:30)
[2018-12-31] MEDS: ZIPRASIDONE 20 MG VIAL IM PRN (22:40)
[2018-12-31 23:46] VITALS: BP 145/80
[2019-01-01] VITALS (7 sets, daily range): BP systolic 126–167; BP diastolic 72–82
[2019-01-01] MEDS: NIFEDIPINE CR 30 MG TAB PO SCH (06:19)
[2019-01-01 07:00] LABS: BASOPHILS # (AUTO) 0.1 (0.0-0.1); BASOPHILS % 0.4 % (0.0-1.0); EOSINOPHILS # (AUTO) 0.3 (0.0-0.4); EOSINOPHILS % 2.7 % (0.0-6.0); HEMOGLOBIN 11.3 g/dL (14.0-18.0); LYMPHOCYTES # (AUTO) 1.2 (1.0-3.2); LYMPHOCYTES % 10.1 % (18.0-39.1); MEAN CORPUSCULAR HEMOGLOBIN 30.7 pg (28-32); MEAN CORPUSCULAR HGB CONC 30.5 g/dL (31-35); MEAN CORPUSCULAR VOLUME 100.5 fL (81-99); MONOCYTES # (AUTO) 1.1 (0.2-0.8); MONOCYTES % 9.8 % (4.4-11.3); NEUTROPHILS # (AUTO) 8.7 (2.1-6.9); NEUTROPHILS % 76.4 % (38.7-80.0); PLATELET COUNT 154 x10e3/uL (140-360); RED BLOOD COUNT 3.68 x10e6/uL (4.3-5.7); RED CELL DISTRIBUTION WIDTH 19.2 % (11.7-14.4)
[2019-01-01] MEDS ORDERED: RENVELA800 MG PO (07:20)
--- NOTE | 2019-01-01 07:20 | NUR ---
PATIENT IS AWAKE WITH SOME CONFUSION NOTED. ALERT AND ORIENTED TO SELF AND PLACE. PATIENT IS IN STABLE CONDITION WITH NO S/S OF RESPIRATORY DISTRESS. NO PAIN VOICED. UROSTOMY BAG NOTED TO THE RIGHT SIDE OF THE PATIENT'S BODY- URINE IS CLEAR. BED ALARM APPLIED. PRESENT IN ROOM. CALL LIGHT IS WITHIN REACH, PATIENT INSTRUCTED TO CALL FOR ASSISTANCE NEEDED.
[2019-01-01 07:22] LABS: ALBUMIN 3.1 g/dL (3.5-5.0); ALBUMIN/GLOBULIN RATIO 0.8 (0.8-2.0); ANION GAP 14.7 mmol/L (8-16); CALCIUM 9.2 mg/dL (8.4-10.2); CREATININE, SERUM 9.36 mg/dL (0.72-1.25); POTASSIUM 3.7 mmol/L (3.5-5.1)
--- NOTE | 2019-01-01 07:25 | NUR ---
CALL PLACED OUT TO [facility]- SPOKE WITH LINDA. LINDA INFORMED OF PATIENT'S DIALYSIS DAYS: --.
[2019-01-01] MEDS: INSULIN LISPRO 100 UNIT/1 ML 3ML VIAL SQ SCH ×4 (07:30→20:37)
[2019-01-01] MEDS: SEVELAMER CARBONATE 800 MG TAB PO SCH ×3 (08:35→17:12)
[2019-01-01] MEDS ORDERED: SODIUM CHLORIDE 0.9% 250ML 250 ML ONE (08:41)
[2019-01-01] MEDS: MEROPENEM 500MG/ NS 50ML 50 ML IV SCH (09:27)
[2019-01-01] MEDS ORDERED: HEPARIN SOD (PORCINE) 1000 UNIT/ML SDV IV PRN (15:45)
[2019-01-01] MEDS ORDERED: MANNITOL 25% 12.5GM/50 ML VIAL IV PRN (15:45)
[2019-01-01] MEDS ORDERED: SODIUM CHLORIDE 0.9% 250ML 500 ML IV PRN (15:45)
[2019-01-01] MEDS ORDERED: SODIUM CHLORIDE 0.9% 1000ML 2,000 ML IV PRN (15:45)
[2019-01-01] MEDS ORDERED: ALBUMIN 25% 12.5GM 0.25 GM/ML BTL IV PRN (15:45)
--- NOTE | 2019-01-01 17:26 | NUR ---
CASE MANAGEMENT INITIAL ASSESSMENT Digital Forensic Analyst to bedside to discuss plan of care with patient/family. CM/SW role and care transitions discussed. Anticipated discharge plan discussed along with duration of care. CM/SW discussed patients right to make decisions in care. CM/SW work hours given. 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 Name and number was also written on the patients whiteboard. Patient verbalized understanding of discussion. CM will follow-up with ongoing discharge and transition of care needs. Addendum: 01/01/19 at 1733 by Edie Miller LORIE / JUN @ [phone]
--- NOTE | 2019-01-01 19:10 | NUR ---
PATIENT IS CURRENTLY RECEIVING DIALYSIS - PATIENT IN STABLE CONDITION WITH NO S/S OF RESPIRATORY DISTRESS. NO PAIN VOICED. PRESENT IN ROOM. CALL LIGHT IS WITHIN REACH, PATIENT INSTRUCTED TO CALL FOR ASSISTANCE NEEDED. REPORT GIVEN TO ONCOMING NURSE.
--- NOTE | 2019-01-01 19:10 | NUR ---
patient received awake, sitting up in bed. patient receiving hd treatment at this time. no c/o pain noted. pm assessment complete. noted at the bedside. patient/ instructed to call for assistance when needed.
[2019-01-01] MEDS: ZIPRASIDONE 20 MG VIAL IM PRN (22:10)
--- NOTE | 2019-01-01 22:10 | NUR ---
hemodialysis treatment complete. vss. patient very confused and agitated at this time. patient out of bed. patient states, " I'm ready to go. I'm ready to go. " patient medicated with geodon 5 mg im at this time. remains at the bedside.
[2019-01-02] VITALS (7 sets, daily range): BP systolic 116–132; BP diastolic 57–77
--- NOTE | 2019-01-02 01:30 | History and Physical ---
PRIMARY CARE PHYSICIAN: CONSULTANTS: and Dr. Juan Urbina. CHIEF COMPLAINT: Altered mental status. HISTORY OF PRESENT ILLNESS: The patient is a 73-year-old male with end-stage renal disease, on dialysis, came in with altered mental status. The patient has also increasing weakness . He has stage IV urinary bladder cancer with postradical cystectomy with bilateral ileal conduit. The patient is followed by Dr. Juan Urbina as an outpatient. The patient came in and his urine looked clear, but urinalysis showed that he had 1+ leukocyte esterase with many bacteria. The patient also has slight elevation of WBC at 11,300. He did have some low-grade fever as well. The patient is admitted for IV antibiotics. He is stable at this time. PAST MEDICAL HISTORY: Stage IV urinary bladder cancer status post radical cystectomy with bilateral ileal conduit. End-stage renal disease, on dialysis. Hypertension. Diabetes type 2. SOCIAL HISTORY: The patient lives at home with his spouse, very well family support. ALLERGIES: NO KNOWN ALLERGIES. MEDICATIONS: Home medication list is reviewed. REVIEW OF SYSTEMS: Confusion, but no pain and no shortness of breath. PHYSICAL EXAMINATION: VITAL SIGNS: Temperature is 99.6, blood pressure 150/72, pulse rate 72, and respirations 22. GENERAL: The patient is not in acute distress. HEENT: Normocephalic, atraumatic. Anicteric. NECK: Supple grossly. PULMONARY: Diminished breath sounds. CARDIOVASCULAR: S1, S2. Regular rate and rhythm. ABDOMEN: Soft. ileal conduit. Nontender and non-distention. EXTREMITIES: No gross cyanosis or edema. NEUROLOGIC: The patient has confusion, but he is following commands. He communicates, but without . LABORATORY DATA: Sodium is 140, potassium 3.7, chloride 105, bicarb 24, BUN 52, creatinine 9.4, glucose 155. WBC is 11.3, hemoglobin is 11.3, hematocrit is 37, and platelets 154. IMPRESSION: 1. encephalopathy. 2. Complicated urinary tract infection with ileal conduit. 3. End-stage renal disease, on dialysis. 4. Multiple chronic baseline problems. PLAN: IV antibiotics. Continue with dialysis, home medication. We will monitor the patient's blood culture and urine culture as planned. MD YAZAN Blanco/BARON /[id number]
[2019-01-02] MEDS: NIFEDIPINE CR 30 MG TAB PO SCH (05:26)
--- NOTE | 2019-01-02 05:27 | NUR ---
am dose of procardia xl 60 mg po held at this time. bp 116/57 hr 75
[2019-01-02] MEDS: MEROPENEM 500MG/ NS 50ML 50 ML IV SCH (09:00)
[2019-01-02] MEDS: INSULIN LISPRO 100 UNIT/1 ML 3ML VIAL SQ SCH ×4 (09:13→20:24)
[2019-01-02] MEDS: SEVELAMER CARBONATE 800 MG TAB PO SCH ×3 (09:13→16:23)
--- NOTE | 2019-01-02 09:15 | NUR ---
Pt received resting in bed with at bedside. Alert and oriented x2. Oriented to staff and surroundings, encouraged to press call miller if help needed. Pt with left urostomy bag. Emotional support given. Fall precautions maintained. Will monitor Addendum: 01/02/19 at 1840 by Piyush Jordan RN pt with right urostomy bag
--- NOTE | 2019-01-02 18:22 | NUR ---
Pt c/o left shoulder pain. Dr. Polanco notified, and Lidoderm patch applied. Will endorse to next shift
--- NOTE | 2019-01-02 19:05 | NUR ---
patient received awake, awake, alert, lying quietly in bed. noted at patients side. no c/o pain noted. pm assessment complete. side rails up x 3, call miller placed within reach. patient/ instructed to call for assistance when needed.
[2019-01-03] VITALS (7 sets, daily range): BP systolic 131–161; BP diastolic 73–88
[2019-01-03] MEDS: NIFEDIPINE CR 30 MG TAB PO SCH ×2 (05:36→06:00)
--- NOTE | 2019-01-03 06:00 | NUR ---
patient refuse am procardia xl 60 mg po at this time.
[2019-01-03 07:22] LABS: FOLATE 8.4 ng/mL (7.0-15.4)
--- NOTE | 2019-01-03 08:00 | NUR ---
Pt received resting in bed with at bedside. All meds given as ordered. Emotional support given. Oriented to staff and surroundings, encouraged to press call miller if help needed. Emotional support given. Fall precautions maintained. Will monitor
[2019-01-03] MEDS: SEVELAMER CARBONATE 800 MG TAB PO SCH ×3 (08:02→17:13)
[2019-01-03] MEDS: INSULIN LISPRO 100 UNIT/1 ML 3ML VIAL SQ SCH ×4 (08:02→20:37)
[2019-01-03] MEDS: MEROPENEM 500MG/ NS 50ML 50 ML IV SCH (08:02)
[2019-01-03] MEDS ORDERED: LIDOCAINE 5% PATCH TP SCH (09:00)
--- NOTE | 2019-01-03 19:10 | NUR ---
patient received awake, alert, sitting in recliner. no c/o pain noted. pm assessment complete. noted at the bedside. /patient instructed to call for assistance when needed.
[2019-01-04] VITALS (7 sets, daily range): BP systolic 136–173; BP diastolic 72–88
[2019-01-04] MEDS: NIFEDIPINE CR 30 MG TAB PO SCH (05:43)
--- NOTE | 2019-01-04 05:43 | NUR ---
bp 173/82 hr 69 scheduled procardia xl 60 mg po given at this time.
[2019-01-04 06:09] LABS: BASOPHILS # (AUTO) 0.1 (0.0-0.1); BASOPHILS % 0.7 % (0.0-1.0); EOSINOPHILS # (AUTO) 0.5 (0.0-0.4); EOSINOPHILS % 4.5 % (0.0-6.0); HEMOGLOBIN 12.1 g/dL (14.0-18.0); LYMPHOCYTES # (AUTO) 1.5 (1.0-3.2); LYMPHOCYTES % 13.2 % (18.0-39.1); MEAN CORPUSCULAR HEMOGLOBIN 30.7 pg (28-32); MEAN CORPUSCULAR HGB CONC 29.5 g/dL (31-35); MEAN CORPUSCULAR VOLUME 104.1 fL (81-99); MONOCYTES # (AUTO) 0.8 (0.2-0.8); MONOCYTES % 7.4 % (4.4-11.3); NEUTROPHILS # (AUTO) 8.4 (2.1-6.9); NEUTROPHILS % 73.8 % (38.7-80.0); PLATELET COUNT 163 x10e3/uL (140-360); RED BLOOD COUNT 3.94 x10e6/uL (4.3-5.7); RED CELL DISTRIBUTION WIDTH 17.8 % (11.7-14.4)
[2019-01-04 06:57] LABS: ANION GAP 17.4 mmol/L (8-16); CALCIUM 9.6 mg/dL (8.4-10.2); CREATININE, SERUM 10.33 mg/dL (0.72-1.25); POTASSIUM 4.4 mmol/L (3.5-5.1)
--- NOTE | 2019-01-04 07:24 | NUR ---
PATIENT IN BED RESTING WITH EYES CLOSED, NO RESPIRATORY DISTRESS OBSERVED. UROSTOMY TO MID ABDOMEN DRAINING CLEAR YELLOW URINE, SOME EXCORIATION NOTED AROUND UROSTOMY SITE; RIGHT CHEST IJ FOR DIALYSIS INTACT. BED IN LOWER POSITION, CALL LIGHT AT REACH. AT BED SIDE.
[2019-01-04] MEDS: INSULIN LISPRO 100 UNIT/1 ML 3ML VIAL SQ SCH ×4 (07:30→20:14)
[2019-01-04] MEDS: SEVELAMER CARBONATE 800 MG TAB PO SCH ×3 (08:40→17:00)
[2019-01-04] MEDS: MEROPENEM 500MG/ NS 50ML 50 ML IV SCH (09:16)
--- NOTE | 2019-01-04 11:02 | NUR ---
MET W THE PT AND AT THE BEDSIDE. WAS CLEANING PT'S STOMA AND ASKED THAT THE IMM LETTER BE SIGNED LATER. LEFT COPY ON CHART AND INFORMED STAFF TO CALL IF PT DC'D TODAY. WILL F/U.
--- NOTE | 2019-01-04 11:11 | NUR ---
ASSESSMENT: No concerns expressed Pt's trusting in romina. Pt's at bedside. Pt states he is "trusting God." Intervention: Provided empathic listening and prayer. Outcome: Pt & expressed appreciation for visit. LUCRETIA HAYS Safety Advisor Spiritual Care Department O: [phone] Pager: [phone] ([phone] number calling from)
--- NOTE | 2019-01-04 11:35 | NUR ---
PATIENT IN BED RESTING WITH EYES CLOSED, NO RESPIRATORY DISTRESS OBSERVED. BED IN LOWER POSITION, CALL LIGHT AT REACH.
--- NOTE | 2019-01-04 16:06 | NUR ---
PATIENT IS ON DIALYSIS FOR --. DIALYSIS OFFICE CALLED, SPOKE TO A STAFF WHO SAID THAT A NURSE WILL BE IN TO PROVIDE PATIENT WITH HEMODIALYSIS TREATMENT. PATIENT NOTIFIED.
--- NOTE | 2019-01-04 17:42 | NUR ---
Nutrition Screen Note RD Recommendation for Physician: -Rec adding ADA 2000 to renal diet due to hx of DM Plan of Care: RD following, monitoring for tolerance and adequacy Nutrition reason for involvement: Diagnosis Primary Diagnose(s): metabolic encephalopathy, complicated UTI PMH: ESRD on HD, bladder cancer, HTN, DM Ht: 73in Wt: 257.19lb BMI: 33.9kg/m2 IBW: 184lb RD Assessment: (01/04) Chart reviewed. Labs and meds reviewed. 73yo M, who was admitted for AMS. BG running between 140 200+. HD was scheduled for today. Visited pt in the room. Pt reported appetite being not so good but ate 75-100% of his meals since admission. Family on bedside to feed pt. No GI complains noted. LBM /. Pt denied any chewing or swallowing difficulty. Pt reported dry weight of 245lb; not suspecting any recent weight loss. Will continue to monitor and follow. Current Diet: renal diet Malnutrition Evaluation (01/04) The patient does not meet criteria for a specified degree of malnutrition at this time. Will re-evaluate at follow-up as appropriate. Diet Education Needs Assessment: Diet education not indicated. followed by RD at [facility] Nutrition Care Level: low Signed: Yanely Raymundo, MS, RD, LD
--- NOTE | 2019-01-04 19:15 | NUR ---
patient received awake, alert, lying quietly in bed. HD treatment continues. no c/o pain/discomfort noted. pm assessment complete. noted at the bedside. patient/ instructed to call for assistance when needed.
--- NOTE | 2019-01-04 22:18 | NUR ---
HD treatment complete. report received from Jesús MOLINA. BP 149/68 HR 79 with 2 liters removed. patient lying quietly in bed. no c/o pain noted. at the bedside.
[2019-01-05] VITALS: BP 160/82
[2019-01-05 04:00] VITALS: BP 118/78
[2019-01-05] MEDS: NIFEDIPINE CR 30 MG TAB PO SCH (05:45)
--- NOTE | 2019-01-05 07:27 | NUR ---
PATIENT OUT OF BED TO RECLINING CHAIR WATCHING TV, NO COMPLAIN VOICED. UROSTOMY DRAINING CLEAR YELLOW URINE. CALL LIGHT AT EASY REACH.
[2019-01-05] MEDS: INSULIN LISPRO 100 UNIT/1 ML 3ML VIAL SQ SCH ×2 (07:30→11:30)
[2019-01-05 07:40] VITALS: BP 145/86
[2019-01-05 08:00] VITALS: BP 145/86
[2019-01-05] MEDS: SEVELAMER CARBONATE 800 MG TAB PO SCH ×2 (08:31→12:19)
[2019-01-05] MEDS: MEROPENEM 500MG/ NS 50ML 50 ML IV SCH (09:43)
--- NOTE | 2019-01-05 11:32 | NUR ---
PATIENT AMBULATING IN HALLWAY WITH FAMILY MEMBER, NO RESPIRATORY DISTRESS OBSERVED. WILL CONTINUE TO MONITOR.
[2019-01-05 12:00] VITALS: BP 112/52
--- NOTE | 2019-01-05 14:50 | NUR ---
PATIENT DISCHARGED HOME. DISCHARGE INSTRUCTIONS AND FOLLOW UP GIVEN TO PATIENT AND , THEY VERBALIZED UNDERSTANDING. IV TO LEFT WRIST REMOVED WITH TIP INTACT. ALL PERSONAL ITEMS TAKEN WITH PATIENT. LEFT UNIT PER WHEEL CHAIR TO FRONT LOBBY IN STABLE CONDITION.
--- NOTE | 2019-01-05 16:58 | NUR ---
PATIENT PRESCRIPTIONS CALLED TO [facility] FOR NAMENDA 5MG PO DAILY 30 TABS WITH 2 REFILLS AND SEROQUEL 12.5MG PO Q 6HRS PRN FOR AGITATION 60 TABS WITH [address] MARLOW.
--- NOTE | 2019-01-05 17:01 | NUR ---
PHARMACY NUMBER [phone]
== END 2019-01-05 14:44 | disposition home or self-care (01) | DRG 698 ==
LOC: ER 04:52 → ERHOLD 07:58 → IMCU 10:40 → MED/SURG3 16:59
PROVIDERS: ADMIT Internal Medicine; ATTEND Internal Medicine
PROC: 5A1D70Z Performance of Urinary Filtration, Intermittent, Less than 6 Hours Per Day (ICD-10-PCS; principal; 2019-01-01)
PROC: 5A1D70Z Performance of Urinary Filtration, Intermittent, Less than 6 Hours Per Day (ICD-10-PCS; 2019-01-04)
DX: N99.511 Cystostomy infection (principal); G93.41 Metabolic encephalopathy; N18.6 End stage renal disease; J18.9 Pneumonia, unspecified organism; I12.0 Hypertensive chronic kidney disease with stage 5 chronic kidney disease or end stage renal disease; E11.22 Type 2 diabetes mellitus with diabetic chronic kidney disease; Z99.2 Dependence on renal dialysis; Z79.4 Long term (current) use of insulin; C67.9 Malignant neoplasm of bladder, unspecified; D63.1 Anemia in chronic kidney disease; E66.9 Obesity, unspecified; Z68.32 Body mass index [BMI] 32.0-32.9, adult
CPT/HCPCS: 36415; 70450; 71045; 74176; 80048; 80053; 81001; 82140; 82550; 82553; 82607; 82746; 82948; 83605; 83735; 84443; 84484; 85025; 85610; 85730; 86704; 86705; 87040; 87086; 87340; 90962; 93005; 96372; 99284; J1644; J2185; J3370; J3486; J7030; J7050

== ENCOUNTER 2019-02-20 14:49 | Inpatient (IN) | payer OTHER ==
--- NOTE | 2019-02-19 20:00 | NUR ---
RECEIVED PATIENT FROM ER VIA STRETCHER. NOTED SOB AND O2 SAT 100%. AAOX3 AND AMB. VOIDS IN URINAL. DENIES PAIN AT THIS TIME. AT BEDSIDE AND STATED PATIENT HAS ANXIETY. HAS AV FISTULA TO L ARM AND TRIALYSIS CATH TO R UPPER CHEST WALL, DIALYSIS MWF. EDEMA TO BLE. ORIENTED TO ROOM. CALL LIGHT WITHIN REACH AND INSTRUCTED TO CALL FOR ASSISTANCE. AND PATIENT VERBALIZED UNDERSTANDING.
[~2019-02-20] VITALS: Ht 185.4 cm; Wt 113.4 kg
[~2019-02-20 14:49] MED LIST changes: +CIPROFLOXACIN500 MG PO; +FERROUS SULFAT325 MG PO; +MEGESTROL400 MG/10 PO; +PANTOPRAZOLE SO40 MG PO; +RENVELA800 MG PO; +TYLENOL # 31 EA PO; +VITAMIN D31000 UNIT PO; +ZOFRAN4 MG SL
--- OUTSIDE RECORDS SUMMARY | 2019-02-20 14:54 | XMS REPORT | Summary of Care ---
Author Author [facility] Organization [facility] Address Unknown Phone Unavailable Encounter CHRISTINA Gomez(SHAMA) [id number] Date(s): 09/13/17 - 09/14/17 [facility] [address], [address] [place], [place] [address]- [phone] Vital Signs No data available for this section Problem List Condition Effective Dates Status Health Status Informant Acute Resolved pancreatitis(Confirm ed) Anemia of chronic Resolved renal failure(Confirmed) Hip pain, Active right(Confirmed) Benign hypertension Active with chronic kidney disease, stage III(Confirmed) Benign prostatic 11/03/59 Active hyperplasia(Confirme d)1 Hematuria(Confirmed) Active Body mass index Active (BMI) of 39.0 to 39.9 in adult(Confirmed) Chronic kidney Active disease, stage 3 (moderate)(Confirmed ) Chronic pain of Active right upper extremity(Confirmed) CPAP (continuous Active positive airway pressure) dependence(Confirmed ) DVT - Deep vein Resolved thrombosis of lower limb(Confirmed) Exertional Active dyspnea(Confirmed) Hearing loss2 04/20/14 Active Idiopathic Resolved thrombocytopenic purpura (ITP)(Confirmed) 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(Confirmed) Melena(Confirmed) Resolved Mixed Active hyperlipidemia(Confi rmed)3 Numbness of right Active anterior thigh(Confirmed) Obstructive sleep 07/09/13 Active apnea syndrome4 Annual physical Active exam(Confirmed) Post-poliomyelitis Active syndrome(Confirmed)5 Pulmonary embolism6 02/04/14 Resolved Elevated Active PSA(Confirmed) Screening for Active diabetic retinopathy(Confirme d) Screening for Active prostate cancer(Confirmed) Seasonal allergic 04/20/14 Active rhinitis7 Right shoulder Active strain(Confirmed) Stenosis of right Active popliteal artery(Confirmed) Strain of right Active upper arm(Confirmed) Type 2 diabetes Active mellitus with hyperglycemia(Confir med) Type 2 diabetes with Active stage 3 chronic kidney disease GFR 30-59(Confirmed) Hearing loss in Active right ear(Confirmed) Unsteady Active gait(Confirmed) Urgency of Active urination(Confirmed) Encounter for Active immunization(Confirm ed) Xeroderma8 07/09/13 Active 1Data migrated from [employer] on 04/01/15. 2Data migrated from [employer] on 04/01/15. 3Data migrated from [employer] on 04/01/15. 4Data migrated from [employer] on 04/01/15. 5Data migrated from [employer] on 04/01/15. 6Data migrated from [employer] on 04/01/15. 7Data migrated from [employer] on 04/01/15. 8Data migrated from [employer] on 04/01/15. Allergies, Adverse Reactions, Alerts Substance Reaction Severity Status NKDA Active Medications No data available for this section Results No data available for this section Immunizations Given and Recorded Vaccine Date Status Refusal Reason influenza virus vaccine, inactivated1 09/11/17 Given influenza virus vaccine, inactivated 09/05/16 Given influenza virus vaccine, inactivated 09/11/15 Given influenza virus vaccine, inactivated2 07/29/14 Given pneumococcal 23-valent vaccine3 02/04/14 Given 1Result Comment: Patient waited 15 min with no reaction. 2Result Comment: fluzone high dose [[id number]]. Migrated from OBS ; Data migrated from [employer] on 12/05/2015. 3Result Comment: pneumovax 23 [cvx33]. Migrated from OBS VIS: Pneumovax 23: 08-08-09 ; Data migrated from [employer] on 12/05/2015. Procedures Procedure Date Related Diagnosis Body Site Esophagogastroduodenoscopy1 12/06/15 Colonoscopy2, 3 10/13/09 1large hiatal hernia, gastritis 2diverticulosis, repeat in 5-10 years 3per pt Social History Social History Type Response Substance Abuse Use: None. Exercise Exercise duration: 30. Exercise type: Walking. 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 Alcohol Never Smoking Status Former smoker; Type: Cigarettes; Concerns about tobacco use in household: No; Exposure to Tobacco Smoke None; Cigarette Smoking Last 365 Days No; Reg Smoking Cessation Counseling No; Tobacco use per day: 8; Stopped at age: 24; Assessment and Plan No data available for this section
--- OUTSIDE RECORDS SUMMARY | 2019-02-20 14:54 | XMS REPORT | Summary of Care ---
Author Author [facility] Organization [facility] Address Unknown Phone Unavailable Encounter HQ Jason(FIN) [id number] Date(s): 06/18/18 - 06/18/18 [facility] [address], [address] [place], [place] [address]- [phone] Discharge Disposition: Home or Self Care Attending Physician: Melanie Burrows MD Vital Signs Most recent to 1 oldest [Reference Range]: Height 185.42 cm (06/18/18 9:46 AM) Temperature Oral 97.7 DegF [96.4-99.1 DegF] (06/18/18 9:46 AM) Blood Pressure 113/60 mmHg [90-140/60-90 mmHg] (06/18/18 9:46 AM) Respiratory Rate 16 BRMIN [14-20 BRMIN] (06/18/18 9:46 AM) Peripheral Pulse 66 bpm Rate [60-100 bpm] (06/18/18 9:46 AM) Weight 136.909 kg (06/18/18 9:46 AM) Body Mass Index 39.82 m2 (06/18/18 9:46 AM) Problem List Condition Effective Dates Status Health Status Informant Acute Resolved pancreatitis(Confirm ed) Anemia due to Active chronic kidney disease(Confirmed) Anemia of chronic Resolved renal failure(Confirmed) Benign hypertension Active with end-stage renal disease(Confirmed) Benign prostatic 11/03/59 Active hyperplasia(Confirme d)1 Body mass index Active (BMI) of 39.0 to 39.9 in adult(Confirmed) Bladder Active carcinoma(Confirmed) CPAP (continuous Active positive airway pressure) dependence(Confirmed ) Dependent on Active hemodialysis(Confirm ed) DVT - Deep vein Resolved thrombosis of lower limb(Confirmed) End stage renal Active disease(Confirmed) S/P radical Active cystoprostatectomy(C onfirmed) Hearing loss2 04/20/14 Active Hyperkalemia(Confirm Resolved ed) Idiopathic Resolved thrombocytopenic purpura (ITP)(Confirmed) Dyspepsia(Confirmed) 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(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) Major Active depression(Confirmed ) Malignant neoplasm Active of bladder(Confirmed) Melena(Confirmed) Resolved Mixed Active hyperlipidemia(Confi rmed)3 Noncompliance with Active medications(Confirme d) Obstructive sleep 07/09/13 Active apnea syndrome(Confirmed)4 Annual physical Active exam(Confirmed) Post-poliomyelitis Active syndrome(Confirmed)5 Pulmonary embolism6 02/04/14 Resolved Elevated Active PSA(Confirmed) Screening for Active prostate cancer(Confirmed) Seasonal allergic 04/20/14 Active rhinitis7 Stenosis of right Active popliteal artery(Confirmed) Type 2 diabetes Active mellitus with ESRD (end-stage renal disease)(Confirmed) Unsteady Active gait(Confirmed) Presence of Active urostomy(Confirmed) Encounter for Active immunization(Confirm ed) 1Data migrated from [employer] on 04/01/15. 2Data migrated from [employer] on 04/01/15. 3Data migrated from [employer] on 04/01/15. 4Data migrated from [employer] on 04/01/15. 5Data migrated from [employer] on 04/01/15. 6Data migrated from [employer] on 04/01/15. 7Data migrated from [employer] on 04/01/15. Allergies, Adverse Reactions, Alerts Substance Reaction Severity Status NKDA Active Medications Lancets Check blood sugar three times daily., MISC, TID, # 300 ea, 2 Refill(s) Start Date: 06/18/18 Status: Ordered OneTouch Ultra Blue Blood Glucose Test Strip Check blood sugar three times daily., MISC, TID, # 300 ea, Insulin dependent, Do es not use insulin pump, Last DM eval date 03/13/18, 2 Refill(s) Start Date: 06/18/18 Status: Ordered OneTouch Ultra2 Blood Glucose Meter Check blood sugar three times daily., MISC, TID, Use for blood glucose monitorin g, # 1 ea, Insulin dependent, Does not use insulin pump, Last DM eval date 03/13, 0 Refill(s) Start Date: 06/18/18 Status: Ordered Results No data available for this section Immunizations Given and Recorded Vaccine Date Status Refusal Reason pneumococcal 13-valent vaccine1 09/02/18 Given influenza virus vaccine, inactivated2 09/02/18 Given influenza virus vaccine, inactivated3 09/11/17 Given influenza virus vaccine, inactivated 09/05/16 Given influenza virus vaccine, inactivated 09/11/15 Given influenza virus vaccine, inactivated4 07/29/14 Given pneumococcal 23-valent vaccine5 02/04/14 Given 1Result Comment: Patient waited 15 min with no reaction. 2Result Comment: Patient waited 15 min with no reaction. 3Result Comment: Patient waited 15 min with no reaction. 4Result Comment: fluzone high dose [[id number]]. Migrated from OBS ; Data migrated from [employer] on 12/05/2015. 5Result Comment: pneumovax 23 [cvx33]. Migrated from OBS VIS: Pneumovax 23: 08-08-09 ; Data migrated from [employer] on 12/05/2015. Procedures Procedure Date Related Diagnosis Body Site Status Influenza vaccination 09/02/18 Completed Pneumococcal vaccination1 09/02/18 Completed Cystoprostatectomy 08/03/18 Completed Transurethral resection of bladder tumor 11/21/17 Completed Esophagogastroduodenoscopy2 12/06/15 Completed Pneumococcal vaccination3 02/04/14 Completed Colonoscopy4, 5 10/13/09 Completed 1Prevnar-13 2large hiatal hernia, gastritis 3Pneumovax 4diverticulosis, repeat in 5-10 years 5per pt Social History Social History Type Response Substance Abuse Use: None. Exercise Exercise duration: 30. Exercise type: Walking. 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 Alcohol Never Smoking Status Former smoker; Type: Cigarettes; Concerns about tobacco use in household: No; Exposure to Tobacco Smoke None; Cigarette Smoking Last 365 Days No; Reg Smoking Cessation Counseling No; Tobacco use per day: 8; Stopped at age: 24; entered on: 09/28/18 Assessment and Plan No data available for this section
--- OUTSIDE RECORDS SUMMARY | 2019-02-20 14:54 | XMS REPORT | Summary of Care ---
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 2Result Comment: fluzone high dose [[id number]]. Migrated from OBS ; Data migrated from [employer] on 12/05/2015. 3Result Comment: pneumovax 23 [cvx33]. Migrated from OBS VIS: Pneumovax 23: 08-08-09 ; Data migrated from [employer] on 12/05/2015. Procedures Procedure Date Related Diagnosis Body Site Esophagogastroduodenoscopy1 12/06/15 Colonoscopy2, 3 10/13/09 1large hiatal hernia, gastritis 2diverticulosis, repeat in 5-10 years 3per pt Social History Social History Type Response Substance Abuse Use: None. Exercise Exercise duration: 30. Exercise type: Walking. 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 Alcohol Never Smoking Status Former smoker; Type: Cigarettes; Concerns about tobacco use in household: No; Exposure to Tobacco Smoke None; Cigarette Smoking Last 365 Days No; Reg Smoking Cessation Counseling No; Tobacco use per day: 8; Stopped at age: 24; Assessment and Plan No data available for this section
--- OUTSIDE RECORDS SUMMARY | 2019-02-20 14:54 | XMS REPORT | Summary of Care ---
Author Author [facility] Organization [facility] Address Unknown Phone Unavailable Encounter CHRISTINA Gomez(SHAMA) [id number] Date(s): 09/16/17 - 09/17/17 [facility] 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(Confirmed) Melena(Confirmed) Resolved [...] Substance Reaction Severity Status NKDA Active Medications Contour Blood Glucose Test Strips See Instructions, Check blood sugar three times daily., # 100 ea, Insulin depend ent, Does not use insulin pump, Last DM eval date 09/11/17, 5 Refill(s) Start Date: 09/16/17 Status: Ordered Results No data available for this section Immunizations Given and Recorded Vaccine Date Status Refusal Reason influenza virus vaccine, inactivated1 09/11/17 Given influenza virus vaccine, inactivated 09/05/16 Given influenza virus vaccine, inactivated 09/11/15 Given influenza virus vaccine, inactivated2 07/29/14 Given pneumococcal 23-valent vaccine3 02/04/14 Given 1Result Comment: Patient waited 15 min with no reaction. 2Result Comment: fluzone high dose [[id number]]. Migrated from OBS ; Data migrated from [employer] on 12/05/2015. 3Result Comment: pneumovax 23 [cvx33]. Migrated from OBS VIS: Pneumovax 23: 08-08-09 ; Data migrated from [employer] on 12/05/2015. Procedures Procedure Date Related Diagnosis Body Site Esophagogastroduodenoscopy1 12/06/15 Colonoscopy2, 3 10/13/09 1large hiatal hernia, gastritis 2diverticulosis, repeat in 5-10 years 3per pt Social History Social History Type Response Substance Abuse Use: None. Exercise Exercise duration: 30. Exercise type: Walking. 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 Alcohol Never Smoking Status Former smoker; Type: Cigarettes; Concerns about tobacco use in household: No; Exposure to Tobacco Smoke None; Cigarette Smoking Last 365 Days No; Reg Smoking Cessation Counseling No; Tobacco use per day: 8; Stopped at age: 24; Assessment and Plan No data available for this section
--- OUTSIDE RECORDS SUMMARY | 2019-02-20 14:54 | XMS REPORT | Continuity of Care Document ---
Author Author [facility] alejo [facility] Interface Address Unknown Phone Unavailable Problems Problem Status Onset Date Classification Date Reported Comments Source THROMBOCYTOPENIA Active 04/02/2016 [facility] ABNORMAL LABS Active 04/02/2016 [facility] Chronic kidney disease, stage 3<sup>3, 4</sup> Active 12/19/2014 Problem 07/29/2016 Data migrated from [employer] on 04/04/15. [facility] [place] Hearing loss<sup>2</sup> Active 04/20/2014 Problem 01/23/2019 Data migrated from [employer] on 04/01/15. [facility] [place] Seasonal allergic rhinitis<sup>7</sup> Active 04/20/2014 Problem 01/23/2019 Data migrated from [employer] on 04/01/15. [facility] [place] Hearing loss<sup>5</sup> Active 04/20/2014 Problem 07/29/2016 Data migrated from [employer] on 04/01/15. [facility] [place] Seasonal allergic rhinitis<sup>11</sup> Active 04/20/2014 Problem 07/29/2016 Data migrated from [employer] on 04/01/15. [facility] [place] Hearing loss<sup>1</sup> Active 04/20/2014 Problem 02/15/2019 Data migrated from [employer] on 04/01/15. [facility] [place] Seasonal allergic rhinitis<sup>6</sup> Active 04/20/2014 Problem 02/15/2019 Data migrated from [employer] on 04/01/15. [facility] [place] Body mass index 40+ - severely obese<sup>2</sup> Active 02/18/2014 Problem 07/29/2016 Data migrated from [employer] on 04/01/15. [facility] [place] Obesity<sup>7</sup> Active 02/18/2014 Problem 07/29/2016 Data migrated from [employer] on 04/01/15. [facility], [facility] [place] Pulmonary embolism<sup>6</sup> Resolved 02/04/2014 Problem 01/23/2019 Data migrated from [employer] on 04/01/15. [facility], [facility] [place] Pulmonary embolism<sup>10</sup> Resolved 02/04/2014 Problem 07/29/2016 Data migrated from [employer] on 04/01/15. [facility], [facility] [place] Pulmonary embolism<sup>5</sup> Resolved 02/04/2014 Problem 02/15/2019 Data migrated from [employer] on 04/01/15. [facility], [facility] [place] Obstructive sleep apnea syndrome<sup>4</sup> Active 07/09/2013 Problem 01/23/2019 Data migrated from [employer] on 04/01/15. [facility], [facility] [place] Xeroderma<sup>8</sup> Active 07/09/2013 Problem 04/17/2018 Data migrated from [employer] on 04/01/15. [facility], [facility] [place] Obstructive sleep apnea syndrome<sup>8</sup> Active 07/09/2013 Problem 07/29/2016 Data migrated from [employer] on 04/01/15. [facility], [facility] [place] Xeroderma<sup>12</sup> Active 07/09/2013 Problem 07/29/2016 Data migrated from [employer] on 04/01/15. [facility], [facility] [place] Obstructive sleep apnea syndrome<sup>3</sup> Active 07/09/2013 Problem 02/15/2019 Data migrated from [employer] on 04/01/15. [facility], [facility] [place] Benign prostatic hyperplasia<sup>1</sup> Active 11/03/1960 Problem 01/23/2019 Data migrated from [employer] on 04/01/15. [facility], LEANA Dhillon,[facility], [facility] [place] Acute pancreatitis Resolved Problem 02/15/2019 [facility], LEANA Dhillon, [facility], [facility] [place] Anemia of chronic renal failure Resolved Problem 02/15/2019 [facility], LEANA Dhillon,[facility], [facility] [place] Hip pain, right Active Problem 04/17/2018 [facility], LE[facility] [place] Benign hypertension with chronic kidney disease, stage III Active Problem 04/17/2018 [facility], LEANA Dhillon,[facility], [facility] [place] Hematuria Active Problem 04/17/2018 [facility], LE[facility] [place] Body mass index of 39.0 to 39.9 in adult(<span ID="[id number]</span>) Active Problem 01/05/2019 [facility], [facility] [place] Chronic kidney disease, stage 3 (<span ID="[id number]">Confirmed</span>) Active Problem 04/17/2018 [facility], LE[facility] [place]hill[place] Chronic pain of right upper extremity Active Problem 04/17/2018 [facility], LEANA [facility]hill[facility], [facility] [place] CPAP dependence(<span ID="[id number]">Confirmed</span>) Active Problem 02/15/2019 [facility], LEANA Dhillon,[facility], [facility] [place] DVT - Deep vein thrombosis of lower limb Resolved Problem 02/15/2019 [facility], LEANA Dhillon,[facility], [facility] [place] Exertional dyspnea Active Problem 04/17/2018 [facility], LEANA [place]hill[facility] Idiopathic thrombocytopenic purpura (<span ID="[id number]">Confirmed</span>) Resolved Problem 02/15/2019 [facility], LEANA Dhillon, [facility] [place] [facility] current use of insulin Active Problem 02/15/2019 [facility], LEANA Dhillon,[facility], [facility] [place] Melena Resolved Problem 02/15/2019 [facility], LEANA Dhillon,[facility], [facility] [place] Mixed hyperlipidemia<sup>3</sup> Active Problem 01/23/2019 Data migrated from [employer] on 04/01/15. [facility], LEANA Dhillon Numbness of right anterior thigh Active Problem 04/17/2018 [facility], LE[facility]hillon Post-poliomyelitis syndrome<sup>5</sup> Active Problem 01/23/2019 Data migrated from [employer] on 04/01/15. [facility], [facility] [place] Elevated PSA Active Problem 01/23/2019 [facility], [facility] [place] Screening for diabetic retinopathy Active Problem 04/17/2018 [facility], [facility] [place], [facility], [facility] [place] Screening for prostate cancer Active Problem 01/23/2019 [facility], CIR[facility] [place], [facility], [facility] [place] Right shoulder strain Active Problem 04/17/2018 [facility], [facility] [place], [facility], [facility] [place] Stenosis of right popliteal artery Active Problem 02/15/2019 [facility], [facility] [place], [facility], [facility] [place] Strain of right upper arm Active Problem 04/17/2018 [facility], [facility] [place], [facility] [place] Type 2 diabetes mellitus with hyperglycemia Active Problem 02/14/2018 [facility], LEANA Dhill[facility], [facility], [facility] [place] Type 2 diabetes with stage 3 chronic kidney disease GFR 30-59 Active Problem 04/17/2018 [facility], [facility] [place] Hearing loss in right ear Active Problem 04/17/2018 [facility], [facility] [place] Unsteady gait Active Problem 02/15/2019 [facility], CIR[facility] [place],[facility], [facility] [place] Urgency of urination Active Problem 04/17/2018 [facility], [facility] [place] Encounter for immunization Active Problem 02/15/2019 [facility], LEANA [facility]hill[facility], [facility] [place] Bladder tumor Active Problem 04/17/2018 [facility] Anemia due to chronic kidney disease Active Problem 02/15/2019 [facility], [facility] [place] Hyperkalemia Resolved Problem 02/15/2019 [facility], [facility] [place] 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 Active Problem 04/17/2018 [facility] Preoperative clearance Active Problem 11/08/2017 [facility] Diabetes Resolved Problem 04/07/2016 [facility] Hypertension, essential Resolved Problem 04/07/2016 [facility] Benign hypertension with end-stage renal disease Active Problem 02/15/2019 [facility], [facility] [place] Bladder carcinoma Active Problem 02/15/2019 [facility], [facility] [place] Dependent on hemodialysis Active Problem 02/15/2019 [facility], [facility] [place] End stage renal disease Active Problem 02/15/2019 [facility], [facility] [place] S/P radical cystoprostatectomy Resolved Problem 02/15/2019 [facility], [facility] [place] Dyspepsia Active Problem 01/23/2019 [facility] Major depression Active Problem 02/15/2019 [facility], [facility] [place] Malignant neoplasm of bladder Active Problem 01/05/2019 [facility] Noncompliance with medications Active Problem 01/05/2019 [facility] Type 2 diabetes mellitus with ESRD (<span ID="[id number]">Confirmed</span>) Active Problem 02/15/2019 [facility], [facility] [place] Presence of urostomy Active Problem 02/15/2019 [facility], [facility] [place] Dizziness Resolved Problem 07/29/2016 [facility], [facility] [place] Epigastric pain Resolved Problem 07/29/2016 [facility], [facility] [place] Mixed hyperlipidemia<sup>6</sup> Active Problem 07/29/2016 Data migrated from [employer] on 04/01/15. [facility], [facility] [place] Morbid obesity Active Problem 07/29/2016 [facility], [facility] [place] Osteoarthritis Active Problem 07/29/2016 [facility] [place] Post-poliomyelitis syndrome<sup>9</sup> Active Problem 07/29/2016 Data migrated from [employer] on 04/01/15. [facility], [facility] [place] Type II diabetes mellitus with stage 3 chronic kidney disease Active Problem 07/29/2016 [facility] [place] Type 2 diabetes, uncontrolled, with renal manifestation Active Problem 07/29/2016 [facility], [facility] [place] BMI 31.0-31.9,adult Active Problem 02/15/2019 [facility], [facility] [place] Dementia Active Problem 02/15/2019 [facility], [facility] [place] Hallucinations Active Problem 02/15/2019 [facility], [facility] [place] Obesity Active Problem 02/15/2019 [facility], [facility] [place] Recurrent UTI Active Problem 02/15/2019 [facility], [facility] [place] Mixed hyperlipidemia<sup>2</sup> Active Problem 02/15/2019 Data migrated from [employer] on 04/01/15. [facility], LE[facility] [place] Post-poliomyelitis syndrome<sup>4</sup> Active Problem 02/15/2019 Data migrated from [employer] on 04/01/15. [facility], LE[facility] [place] Acute renal failure Active Problem 01/05/2019 [facility] Altered mental status Active Problem 01/05/2019 [facility] ESRD on dialysis Active Problem 01/05/2019 [facility] Hypoglycemia Active Problem 01/05/2019 [facility] Symptomatic anemia Active Problem 01/05/2019 [facility] Thrombocytopenia Active Problem 01/05/2019 [facility] UTI Active Problem 01/05/2019 [facility] THROMBOCYTOPENIA, UNSPECIFIED Active [facility] Medications Medication Details Route Status Patient Instructions Ordering Provider Order Date Source levofloxacin 250 mg oral tablet 250 mg=1 tab, PO, Daily, Give only after dialysis, X 7 day, # 7 tab, 0 Refill(s), Pharmacy: [place] [id number] Active 01/19/2019 [facility] memantine 5 mg oral tablet 5 mg=1 tab, PO, Daily, 0 Refill(s) Active 01/19/2019 [facility] QUEtiapine 25 mg oral tablet 25 mg=1 tab, PO, Q6H, PRN Agitation Active 01/19/2019 [facility] ferrous sulfate PO, 0 Refill(s) Active 01/19/2019 [facility] sevelamer 800 mg oral tablet 1,600 mg=2 tab, PO, TID-Meals, # 540 tab, 0 Refill(s) Active 01/19/2019 [facility] Megestrol Acetate 40 MG/ML Oral Suspension 800 mg=20 mL, PO, Daily, # 600 mL, 0 Refill(s) Active 01/19/2019 [facility] pantoprazole 40 mg oral enteric coated tablet 40 mg=1 tab, PO, Daily, # 90 tab, 1 Refill(s) Active 01/19/2019 [facility] Sevelamer Carbonate (Renvela) 0.8 Gm Powd.pack, 1600 Mg Oral Three Times Daily With Meals Active 01/01/2019 [facility] Acetaminophen With Codeine (Tylenol With Codeine #3 Tablet) 1 Each Tablet, 300 Mg Oral Every 4 Hours for Pain Active 12/31/2018 [facility] Insulin Glargine (Lantus 3ML Pen) 100 Units/1 Ml Inj, 20 Units Sub-Q Pm Active 09/10/2018 [facility] Hydrochlorothiazide 25 Mg Tablet, 25 Mg Oral Daily Active 08/28/2018 [facility] Insuln Asp Prt/Insulin Aspart (Novolog Mix 70-30 Flexpen Syrn) 100 Unit/1 Ml Insuln.pen, 57 UnitsSub-Q Twice A Day Active 08/28/2018 [facility] Lisinopril 40 Mg Tablet, 40 Mg Oral Twice A Day Active 08/28/2018 [facility] Metformin Hcl 1,000 Mg Tablet, 1000 Mg Oral Twice A Day Active 08/28/2018 [facility] Tamsulosin Hcl (Flomax*) 0.4 Mg Cap, 0.4 Mg Oral Daily Active 08/28/2018 [facility] OneTouch Ultra2 Blood Glucose Meter Check blood sugar three times daily., MISC, TID, Use for blood glucose monitoring, # 1 ea, Insulin dependent, Does not use insulin pump, Last DM eval date 03/13/18, 0 Refill(s) Active 06/18/2018 [facility] OneTouch Ultra Blue Blood Glucose Test Strip Check blood sugar three times daily., MISC, TID, # 300 ea, Insulin dependent, Does not use insulin pump, Last DM eval date 03/13/18, 2 Refill(s) Active 06/18/2018 [facility] Lancets Check blood sugar three times daily., MISC, TID, # 300 ea, 2 Refill(s) Active 06/18/2018 [facility] NovoFine Insulin Pen [place] 32G 6 mm=1/4 inch Patient injects insulin three times daily., MISC, TID, # 100 ea, 5 Refill(s) Active 03/13/2018 [facility] tamsulosin 0.4 mg oral capsule 0.4 mg=1 cap, PO, BID, # 180 cap, 1 Refill(s), Pharmacy: [facility] Active 03/13/2018 [facility] omeprazole 40 mg oral delayed release capsule 40 mg=1 cap, PO, Daily, # 90 cap, 1 Refill(s), Pharmacy: [facility] Active 03/13/2018 [facility] Metformin hydrochloride 1000 MG Oral Tablet 1,000 mg=1 tab, PO, BID, # 180 tab, 1 Refill(s), Pharmacy: [facility] Active 03/13/2018 [facility] lisinopril 40 mg oral tablet 40 mg=1 tab, PO, BID, # 180 tab, 1 Refill(s), Pharmacy: [facility] Active 03/13/2018 [facility] Hydrochlorothiazide 25 MG Oral Tablet 25 mg=1 tab, PO, Daily, # 90 tab, 1 Refill(s), Pharmacy: [facility] Active 03/13/2018 [facility] atorvastatin 20 mg oral tablet 20 mg=1 tab, PO, Bedtime, # 90 tab, 1 Refill(s), Pharmacy: [facility] Active 03/13/2018 [facility] 3 ML Insulin Glargine 100 UNT/ML Pen Injector [Basaglar] 20 unit, SUB-Q, Bedtime, # 6 box, 1 Refill(s) Active 12/28/2017 [facility] Contour Blood Glucose Test Strips See Instructions, Check blood sugar three times daily., # 100 ea, Insulin dependent, Does not use insulin pump, Last DM eval date 09/11/17, 5 Refill(s) Active 09/16/2017 [facility] predniSONE 20 mg oral tablet See Special Instructions, PO, Daily, 12 day regimen: Days 1-4 - 40 mg (2 tabs) daily Days 5-8 - 20 mg (1 tab) daily Days 9-12 - 10 mg (1/2 tab) daily, X 12 day, # 12 tab, 0 Refill(s) Active 04/04/2016 [facility] prednisolone 5 MG Oral Tablet 40 mg, 13.33 mL, Route: PO, Drug form: SYRP, Daily, Dosing Weight 127.273, kg, Start date: 04/04/16 9:00:00 CDT, Duration: 30 day, Stop date: 05/03/16 9:00:00 CDTNotes: (Same as: Prelone) With food. Inactive 04/04/2016 [facility] atorvastatin 20 mg, 2 tab, Route: PO, Drug form: TAB, Bedtime, Dosing Weight 127.273, kg, Start date: 04/03/16 21:00:00 CDT, Duration: 30 day, Stop date: 05/02/16 21:00:00 CDTNotes: (Same As: Lipitor) No Longer Active 04/04/2016 [facility] Protonix 40 mg, 1 tab, Route: PO, Drug form: ECTAB, Before Dinner, Start date: 04/03/16 16:30:00 CDT, Duration: 30 day, Stop date: 05/02/16 16:30:00 CDTNotes: Tablet should not be chewed or crushed. (Same as: Protonix) No Longer Active 04/03/2016 [facility] Insulin, Aspart, Human 4 unit, 0.04 mL, Route: SUB-Q, Drug form: SOLN, Bedtime, Dosing Weight 127.273, kg, PRN Blood Glucose Results, Start date: 04/03/16 12:41:00 CDT, Duration: 30 day, Stop date: 05/03/16 12:40:00 CDTNotes: Roll in palms of hands gently; Do not shake vigorously. (Same as: NovoLOG) "single patient use only" WASTE: F/P - Black; E - Municipal Trash Bin Stable for 28 days at room temperature. Expires in days from Date No Longer Active 04/03/2016 [facility] Dextrose 50% Syringe 12.5 gm, 25 mL, Route: IVP, Drug Form: INJ, Dosing Weight 127.273, kg, PRN, PRN Blood Glucose Results, Start date: 04/03/16 12:41:00 CDT, Duration: 30 day, Stop date: 05/03/16 12:40:00 CDT No Longer Active 04/03/2016 [facility] Glucagon 1 mg, Route: IM, Drug form: PDR/INJ, PRN, Dosing Weight 127.273, kg, PRN Blood Glucose Results, Start date: 04/03/16 12:41:00 CDT, Duration: 30 day, Stop date: 05/03/16 12:40:00 CDT No Longer Active 04/03/2016 [facility] Magnesium Sulfate 2 gm, 50 mL, Route: IVPB, Drug form: INJ, Q2H, Dosing Weight 127.273, kg, Total dose=4 gm, Start date: 04/03/16 12:00:00 CDT, Duration: 2 doses or times, Stop date: 04/03/16 14:00:00 CDTNotes: WASTE: F/P - Sink; E - Municipal Trash Bin Inactive 04/03/2016 [facility] potassium phosphate + Sodium Chloride 0.9% IV 250 mL 15 mmol, 5 mL, Route: IVPB, ONCE, Dosing Weight 127.273, kg, Start date: 04/03/16 10:10:00 CDT, Stop date: 04/03/16 10:10:00 CDTNotes: (Same as: K Phosphate.) 1 mMol phoshate has 1.47 mEq potassium Infuse over 4 hours Inactive 04/03/2016 [facility] Metformin 500 mg, 1 tab, Route: PO, Drug form: TAB, BID, Dosing Weight 127.273, kg, Start date: 04/03/16 9:00:00 CDT, Duration: 30 day, Stop date: 05/02/16 17:00:00 CDTNotes: (Same as: Glucophage) Take with meal Inactive 04/03/2016 [facility] Hydrochlorothiazide 25 mg, 1 tab, Route: PO, Drug form: TAB, Daily, Dosing Weight 127.273, kg, Start date: 04/03/16 9:00:00 CDT, Duration: 30 day, Stop date: 05/02/16 9:00:00 CDTNotes: (Same as: Hydrodiuril) With food. No Longer Active 04/03/2016 [facility] tamsulosin 0.4 mg, 1 cap, Route: PO, Drug form: CAP, Daily, Dosing Weight 127.273, kg, Start date: 04/03/16 9:00:00 CDT, Duration: 30 day, Stop date: 05/02/16 9:00:00 CDTNotes: (Same As: Flomax) "Do Not Crush" No Longer Active 04/03/2016 [facility] Omeprazole 40 mg, Route: PO, Drug form: DRC, Daily, Dosing Weight 127.273, kg, Start date: 04/03/16 9:00:00 CDT, Duration: 30 day, Stop date: 05/02/16 9:00:00 CDT Inactive 04/03/2016 [facility] Mupirocin 0.02 MG/MG Topical Ointment 1 appl, Route: TOP, BID, Drug form: OINT, Start date: 04/03/16 9:00:00 CDT, Duration: 30 day, Stop date: 05/02/16 17:00:00 CDT No Longer Active 04/03/2016 [facility] Metformin hydrochloride 1000 MG Oral Tablet 1,000 mg, 2 tab, Route: PO, Drug form: TAB, BID, Dosing Weight 127.273, kg, Start date: 04/03/16 9:00:00 CDT, Duration: 30 day, Stop date: 05/02/16 17:00:00 CDTNotes: (Same as: Glucophage) Take with meal No Longer Active 04/03/2016 [facility] Dexamethasone 40 mg, 10 mL, Route: IVPB, Drug form: INJ, Daily, Dosing Weight 127.273, kg, Start date: 04/03/16 9:00:00 CDT, Duration: 3 day, Stop date: 04/05/16 9:00:00 CDT No Longer Active 04/03/2016 [facility] Lisinopril 40 mg, 2 tab, Route: PO, Drug form: TAB, BID, Dosing Weight 127.273, kg, Start date: 04/03/16 9:00:00 CDT, Duration: 30 day, Stop date: 05/02/16 21:00:00 CDTNotes: (Same as: Prinivil, Zestril) No Longer Active 04/03/2016 [facility] NovoLOG Mix 70/30 FlexPen 55 unit, 0.55 mL, Route: SUB- Q, Drug form: INJ, BID, Dosing Weight 127.273, kg, Start date: 04/03/16 9:00:00 CDT, Duration: 30 day, Stop date: 05/02/16 17:00:00 CDTNotes: Roll in palms of hands gently; Do not shake vigorously. (Same as: NovoLOG Mix) "single patient use only" WASTE: F/P - Black; E - Municipal Trash Bin Stable for 14 days at room temperature Expires in days from Date No Longer Active 04/03/2016 [place] tramadol hydrochloride 50 MG Oral Tablet 50 mg, 1 tab, Route: PO, Drug form: TAB, Q6H, Dosing Weight 127.273, kg, PRN Pain Score 4-6, Start date: 04/03/16 8:14:00 CDT, Duration: 30 day, Stop date: 05/03/16 8:13:00 CDTNotes: Not to exceed 400mg/day. (Same As: Ultram) No Longer Active 04/03/2016 [place] Acetaminophen 650 mg, 2 tab, Route: PO, Drug form: TAB, Q6H, Dosing Weight 127.273, kg, PRN Pain 1-3/Temp > 99.5 F, Start date: 04/03/16 8:14:00 CDT, Duration: 30 day, Stop date: 05/03/16 8:13:00 CDTNotes: Do not exceed 4 gm/day. (Same as: Tylenol) No Longer Active 04/03/2016 [facility] Insulin, Aspart, Human 3 unit, 0.03 mL, Route: SUB-Q, Drug form: SOLN, Bedtime, Dosing Weight 127.273, kg, PRN Blood Glucose Results, Start date: 04/03/16 8:13:00 CDT, Duration: 30 day, Stop date: 05/03/16 8:12:00 CDTNotes: Roll in palms of hands gently; Do not shake vigorously. (Same as: NovoLOG) "single patient use only" WASTE: F/P - Black; E - Municipal Trash Bin Stable for 28 days at room temperature. Expires in days from Date Inactive 04/03/2016 [place] Glucagon 1 mg, Route: IM, Drug form: PDR/INJ, PRN, Dosing Weight 127.273, kg, PRN Blood Glucose Results, Start date: 04/03/16 8:13:00 CDT, Duration: 30 day, Stop date: 05/03/16 8:12:00 CDT Inactive 04/03/2016 [facility] Dextrose 50% Syringe 25 gm, 50 mL, Route: IVP, Drug Form: INJ, Dosing Weight 127.273, kg, PRN, PRN Blood Glucose Results, Start date: 04/03/16 8:13:00 CDT, Duration: 30 day, Stop date: 05/03/16 8:12:00 CDT Inactive 04/03/2016 [facility] Meclizine 25 mg, 1 tab, Route: PO, Drug form: TAB, TID, Dosing Weight 127.273, kg, PRN Dizziness, Start date: 04/03/16 8:11:00 CDT, Duration: 30 day, Stop date: 05/03/16 8:10:00 CDTNotes: (Same as: Antivert) No Longer Active 04/03/2016 [facility] Insulin, Aspart, Human 1 unit, 0.01 mL, Route: SUB-Q, Drug form: SOLN, TID-Before Meals, Dosing Weight 127.273, kg, PRN Blood Glucose Results, Start date: 04/02/16 21:45:00 CDT, Duration: 30 day, Stop date: 05/02/16 21:44:00 CDTNotes: Roll in palms of hands gently; Do not shake vigorously. (Same as: NovoLOG) "single patient use only" WASTE: F/P - Black; E - Municipal Trash Bin Stable for 28 days at room temperature. Expires in days from Date No Longer Active 04/03/2016 [facility] Glucagon 1 mg, Route: IM, Drug form: PDR/INJ, PRN, Dosing Weight 127.273, kg, PRN Blood Glucose Results, Start date: 04/02/16 21:45:00 CDT, Duration: 30 day, Stop date: 05/02/16 21:44:00 CDT No Longer Active 04/03/2016 [facility] Dextrose 50% Syringe 25 gm, 50 mL, Route: IVP, Drug Form: INJ, Dosing Weight 127.273, kg, PRN, PRN Blood Glucose Results, Start date: 04/02/16 21:45:00 CDT, Duration: 30 day, Stop date: 05/02/16 21:44:00 CDT No Longer Active 04/03/2016 [facility] Saline Flush 0.9% 10 ml, Route: IVP, Drug Form: INJ, Dosing Weight 127.273, kg, PRN, PRN Line Flush, Start date: 04/02/16 21:44:00 CDT, Duration: 30 day, Stop date: 05/02/16 21:43:00 CDTNotes: (Same as: BD Posiflush) No Longer Active 04/03/2016 [facility] Ondansetron 4 mg, 2 mL, Route: IVP, Drug form: INJ, Q6H, Dosing Weight 127.273, kg, PRN Nausea & Vomiting, Start date: 04/02/16 21:44:00 CDT, Duration: 30 day, Stop date: 05/02/16 21:43:00 CDTNotes: (Same as: Zofran) MEDICATION WASTE Product Size: 4 mg Product Wasted: ___ mg No Longer Active 04/03/2016 [facility] Sodium Chloride 0.154 MEQ/ML Injectable Solution 1,000 mL, Rate: 75 ml/hr, Infuse over: 13.3 hr, Route: IV, Dosing Weight 127.273 kg, Total Volume: 1,000, Start date: 04/02/16 21:44:00 CDT, Duration: 30 day, Stop date: 05/02/16 21:43:00 CDT No Longer Active 04/03/2016 [facility] Dexamethasone 40 mg, 10 mL, Route: IV, Drug form: INJ, ONCE, Dosing Weight 127.273, kg, Start date: 04/02/16 19:51:00 CDT, Stop date: 04/02/16 19:51:00 CDTNotes: Concentration: 4mg/ml Inactive 04/03/2016 [facility] Lisinopril 10 mg, 1 tab, Route: PO, Drug form: TAB, Daily, Dosing Weight 127.273, kg, Priority: STAT, Start date: 04/02/16 19:40:00 CDT, Duration: 30 day, Stop date: 05/02/16 9:00:00 CDTNotes: (Same as: Prinivil, Zestril) No Longer Active 04/03/2016 [facility] Acetaminophen/Codeine Phosphate (Tylenol # 3*) 1 Ea Tab Every 6 Hours as needed for Pain Active [facility] Atorvastatin Calcium 20 Mg Tablet Bedtime Active [facility] Cholecalciferol (Vitamin D3) (Vitamin D3) 1,000 Unit Capsule Daily Active [facility] Ciprofloxacin Hcl 500 Mg Tablet Daily Active [facility] Ferrous Sulfate 325 Mg Tablet Daily Active [facility] Insuln Asp Prt/Insulin Aspart (Novolog Mix 70-30 Flexpen Syrn) 100 Unit/1 Ml Insuln.pen Daily Active [facility] Megestrol Acetate 400 Mg/10 Ml Oral.susp Daily [facility] Ondansetron Hcl (Zofran*) 4 Mg Tablet Every 8 Hours as needed for Nausea Active [facility] Pantoprazole Sodium (Protonix) 40 Mg Tablet.dr Daily [facility] Sevelamer Hcl (Renvela) 800 Mg Tab Three Times Daily With Meals Active [facility] Allergies, Adverse Reactions, Alerts Substance Category Reaction Severity Reaction type Status Date Reported Comments Source Immunizations Immunization Date Given Site Status Last Updated Comments Source pneumococcal 13-valent vaccine<sup>1</sup> 09/02/2018 Left Deltoid completed [place] Result Comment: Patient waited 15 min with no reaction. [facility], LEANA [place] influenza virus vaccine, inactivated<sup>2</sup> 09/02/2018 Right Deltoid completed [place] Result Comment: Patient waited 15 min with no reaction. [facility], OPID [place] influenza virus vaccine, inactivated<sup>1</sup> 09/11/2017 Left Deltoid completed [place] Result Comment: Patient waited 15 min with no reaction. [facility], LEANA [place] influenza virus vaccine, inactivated<sup>3</sup> 09/11/2017 Left Deltoid completed [place] Result Comment: Patient waited 15 min with no reaction. [facility], OPIGildardo [place] influenza virus vaccine, inactivated 09/05/2016 Left Deltoid completed [place] [facility], LEANA [place], [facility] [place] influenza virus vaccine, inactivated 09/11/2015 Left deltoid completed [place] [facility], LEANA [place],[facility], LEANA [place] influenza virus vaccine, inactivated<sup>2</sup> 07/29/2014 Left Deltoid completed [facility] Result Comment: fluzone high dose [[id number]]. Migrated from OBS ; Data migrated from [employer] on 12/05/2015. [facility], LEANA [place] influenza virus vaccine, inactivated<sup>4</sup> 07/29/2014 Left Deltoid completed GE Result Comment: fluzone high dose [[id number]]. Migrated from OBS ; Data migrated from [employer] on 12/05/2015. [facility], OPIGildardo [place] influenza virus vaccine, inactivated<sup>1</sup> 07/29/2014 Left Deltoid completed GE Result Comment: fluzone high dose [[id number]]. Migrated from OBS ; Data migrated from [employer] on 12/05/2015. [facility], LEANA [place] pneumococcal 23-valent vaccine<sup>3</sup> 02/04/2014 Right Deltoid completed GE Result Comment: pneumovax 23 [[id number]]. Migrated from OBS VIS: Pneumovax 23: 08-08-09 ; Data migrated from [employer] on 12/05/2015. [facility], LEANA [place] pneumococcal 23-valent vaccine<sup>5</sup> 02/04/2014 Right Deltoid completed GE Result Comment: pneumovax 23 [cvx33]. Migrated from OBS VIS: Pneumovax 23: 08-08-09 ; Data migrated from [employer] on 12/05/2015. [facility], LEANA [place] pneumococcal 23-valent vaccine<sup>2</sup> 02/04/2014 Right Deltoid completed GE Result Comment: pneumovax 23 [cvx33]. Migrated from OBS VIS: Pneumovax 23: 08-08-09 ; Data migrated from [employer] on 12/05/2015. [facility], LEANA [place] Results Order Name Results Value Reference Range Date Interpretation Comments Source Brain wo contrast CT Brain wo contrast CT PATIENT NAME: KVNG LOPEZ : 1945; Age: 74 years y/o Male MR: [id number] STUDY: Brain wo contrast CT 02/09/2019 8:15 CDT ORDERING PHYSICIAN: Jorge Alberto Schaefer MD CLINICAL INDICATION: - R44.3 Hallucinations, unspecified; C67.9 Malignant neoplasm of bladder, unspecified; COMPARISON: None TECHNIQUE: Noncontrast images of the brain are obtained from the skull base to the vertex. Axial, sagittal, and coronal images are interpreted. DLP: 1391 mGy-cm This exam was performed according to our departmental dose-optimization protocol, which includes automated exposure control, adjustment of the mA and/or kV according to patient size and/or use of iterative reconstruction technique. FINDINGS: BRAIN PARENCHYMA: There is no evidence of cerebral edema, mass, mass effect, hemorrhage, or recent cortical infarct. There is mild generalized cortical and deep white matter volume loss most evident in the temporal lobes. There is no hippocampal involvement. There is a left parietal subcortical white matter hypodensity. There are scattered periventricular white matter hypodensities.. The siegel-white distinction is maintained. CEREBELLOPONTINE REGIONS AND SKULL BASE: The cerebellopontine angles appear unremarkable. No skull base abnormality is seen. VENTRICLES/SULCI/CISTERNS: The ventricles are normal in size and configuration. The basal cisterns are patent. ORBITS, VISUALIZED PARANASAL SINUSES AND MASTOIDS: Paranasal sinuses are clear. The mastoid air cells are clear. No orbital pathology is seen. SKULL/CALVARIUM: There is no skull fracture or focal lesion. IMPRESSION: 1. 9 mm subcortical hypodensity in the left parietal lobe is nonspecific and may relate to chronic ischemic focus. A tiny edematous lesion may cause this appearance, and given history, further assessment with MRI brain with and without contrast may be considered. There is no associated mass effect. 2. No additional, potentially acute intracranial findings 02/09/2019 - - Read by: Miguel Navarrete MD Dictated Date/time: 02/09/19 10:38 Electronically Signed by: Miguel Navarrete MD 02/09/19 10:42 FINAL REPORT [facility] Capillary blood glucose measurement by glucometer (mass/volume) 217 70 - 120 01/05/2019 [facility] Serum or plasma sodium measurement (moles/volume) 135 136 - 145 01/04/2019 [facility] Serum or plasma potassium measurement (moles/volume) 4.4 3.5 - 5.1 01/04/2019 [facility] Serum or plasma chloride measurement (moles/volume) 100 98 - 107 01/04/2019 [facility] Serum or plasma carbon dioxide, total measurement (moles/volume) 22 22 - 29 01/04/2019 [facility] Serum or plasma anion gap 17.4 8 - 16 01/04/2019 [facility] Serum or plasma urea nitrogen measurement (mass/volume) 58 7 - 26 01/04/2019 [facility] Serum or plasma creatinine measurement (mass/volume) 10.33 0.72 - 1.25 01/04/2019 [facility] Serum or plasma urea nitrogen/creatinine mass ratio 6 6 - 25 01/04/2019 [facility] Estimated glomerular filtration rate (GFR) determination 6 60 01/04/2019 [facility] Glucose measurement 149 74 - 118 01/04/2019 [facility] Serum or plasma calcium measurement (mass/volume) 9.6 8.4 - 10.2 01/04/2019 [facility] Blood leukocytes automated count (number/volume) 11.36 4.8 - 10.8 01/04/2019 [facility] Blood erythrocytes automated count (number/volume) 3.94 4.3 - 5.7 01/04/2019 [facility] Blood hemoglobin measurement (moles/volume) 12.1 14.0 - 18.0 01/04/2019 [facility] Automated blood hematocrit (volume fraction) 41.0 38.2 - 49.6 01/04/2019 [facility] Automated erythrocyte mean corpuscular volume 104.1 81 - 99 01/04/2019 [facility] Automated erythrocyte mean corpuscular hemoglobin (mass per erythrocyte) 30.7 28 - 32 01/04/2019 [facility] Automated erythrocyte mean corpuscular hemoglobin concentration measurement (mass/volume) 29.5 31 - 35 01/04/2019 [facility] RDW BldCo-Rto 17.8 11.7 - 14.4 01/04/2019 [facility] Automated blood platelet count (count/volume) 163 140 - 360 01/04/2019 [facility] Automated blood segmented neutrophil count as percentage of total leukocytes 73.8 38.7 - 80.0 01/04/2019 [facility] Automated blood lymphocyte count as percentage ot total leukocytes 13.2 18.0 - 39.1 01/04/2019 [facility] Automated blood monocyte count as percentage of total leukocytes 7.4 4.4 - 11.3 01/04/2019 [facility] Automated blood eosinophil count as percentage of total leukocytes 4.5 0.0 - 6.0 01/04/2019 [facility] Automated blood basophil count as percentage of total leukocytes 0.7 0.0 - 1.0 01/04/2019 [facility] IM GRANULOCYTES % 0.4 0.0 - 1.0 01/04/2019 [facility] Automated blood neutrophil count 8.4 2.1 - 6.9 01/04/2019 [facility] Blood lymphocytes count (number/volume) 1.5 1.0 - 3.2 01/04/2019 [facility] Blood monocytes automated count (number/volume) 0.8 0.2 - 0.8 01/04/2019 [facility] Automated blood eosinophil count 0.5 0.0 - 0.4 01/04/2019 [facility] Automated blood basophil count (count/volume) 0.1 0.0 - 0.1 01/04/2019 [facility] Absolute Immature Granulocyte (auto 0.04 0 - 0.1 01/04/2019 [facility] Ammonia Ser-mCnc 49 31 - 123 01/03/2019 [facility] Blood cobalamin (vitamin B12) measurement (mass/volume) 591 213 - 816 01/03/2019 [facility] Serum or plasma folate measurement (mass/volume) 8.4 7.0 - 15.4 01/03/2019 [facility] Serum or plasma thyrotropin measurement by detection limit <=0.005 miu/l (units/volume) 1.246 0.350 - 4.940 01/03/2019 [facility] Serum or plasma hepatitis B virus core antibody detection by immunoassay Negative Negative 01/01/2019 [facility] Serum or plasma hepatitis B virus surface antigen detection by immunoassay Negative Negative 01/01/2019 [facility] Serum or plasma hepatitis B virus core IgM antibody detection by immunoassay Negative Negative 01/01/2019 [facility] Serum or plasma total bilirubin measurement (mass/volume) 0.7 0.2 - 1.2 01/01/2019 [facility] Aspartate Amino Transf (AST/SGOT) 16 5 - 34 01/01/2019 [facility] Serum or plasma alanine aminotransferase measurement (enzymatic activity/volume) 9 0 - 55 01/01/2019 [facility] Serum or plasma protein measurement (mass/volume) 6.9 6.5 - 8.1 01/01/2019 [facility] Serum or plasma albumin measurement (mass/volume) 3.1 3.5 - 5.0 01/01/2019 [facility] Plasma globulin measurement (mass/volume) 3.8 2.3 - 3.5 01/01/2019 [facility] Serum or plasma albumin/globulin mass ratio 0.8 0.8 - 2.0 01/01/2019 [facility] Serum or plasma alkaline phosphatase measurement (enzymatic activity/volume) 73 40 - 150 01/01/2019 [facility] Serum or plasma creatine kinase measurement (enzymatic activity/volume) 55 30 - 200 12/31/2018 [facility] Serum or plasma creatine kinase MB measurement (mass/volume) 0.70 0 - 5.0 12/31/2018 [facility] Troponin I measurement by highly sensitive enzyme immunoassay 0.056 0 - 0.300 12/31/2018 [facility] Urine color determination YELLOW YELLOW 12/31/2018 [facility] Urine clarity CLOUDY CLEAR 12/31/2018 [facility] Specific gravity of Urine by Test strip 1.015 1.010 - 1.025 12/31/2018 [facility] Urine pH measurement by automated test strip 9 5 - 7 12/31/2018 [facility] Urine leukocyte esterase detection by dipstick 1+ NEGATIVE 12/31/2018 [facility] Urine nitrite detection NEGATIVE NEGATIVE 12/31/2018 [facility] Urine protein measurement by test strip (mass/volume) 1+ NEGATIVE 12/31/2018 [facility] Urine glucose detection NEGATIVE NEGATIVE 12/31/2018 [facility] Urine ketones detection by automated test strip NEGATIVE NEGATIVE 12/31/2018 [facility] Urine urobilinogen measurement by test strip (mass/volume) 0.2 0.2 - 1 12/31/2018 [facility] Urine total bilirubin measurement (mass/volume) NEGATIVE NEGATIVE 12/31/2018 [facility] Urine erythrocytes detection 1+ NEGATIVE 12/31/2018 [facility] Automated urine sediment leukocyte count by microscopy (number/high power field) 21-50 0 - 5 12/31/2018 [facility] Erythrocytes detection in urine sediment by light microscopy 0-5 0 - 5 12/31/2018 [facility] Bacteria detection in urine sediment by light microscopy MANY NONE 12/31/2018 [facility] Epithelial cells detection in urine sediment by light microscopy RARE NONE 12/31/2018 [facility] Blood culture NO GROWTH AFTER 5 DAYS, FINAL REPORT 12/31/2018 [facility] Prothrombin time (PT) in platelet poor plasma by coagulation assay 13.4 11.9 - 14.5 12/31/2018 [facility] INR in Platelet poor plasma by Coagulation assay 0.94 12/31/2018 [facility] Activated partial thromboplastin time (aPTT) in platelet poor plasma bycoagulation assay 30.7 23.8 - 35.5 12/31/2018 [facility] Lactic Acid Level 8.7 4.5 - 19.8 12/31/2018 [facility] Serum or plasma magnesium measurement (mass/volume) 1.6 1.3 - 2.1 12/31/2018 [facility] BNP Bld-mCnc 201.1 0 - 100 12/15/2018 [facility] Influenza virus A and B antigen identification by immunofluorescence NEGATIVE NEGATIVE 12/15/2018 [facility] Serum hepatitis B virus surface antibody assay by radioimmunoassay (units/volume) <3.1 Immunity>9.9 11/13/2018 [facility] Amorphous sediment detection in urine sediment by light microscopy FEW FEW 09/10/2018 [facility] Hyaline casts detection in urine sediment by light microscopy 0-1 0 - 1 09/10/2018 [facility] Mucus detection in urine sediment by light microscopy FEW RARE 09/10/2018 [facility] Serum or plasma lipase measurement (enzymatic activity/volume) 130 8 - 78 09/03/2018 [facility] Phosphorus measurement 6.5 2.3 - 4.7 08/24/2018 [facility] Qualitative serum or plasma hepatitis B virus e antibody by enzyme immunoassay Negative Negative 08/18/2018 [facility] Random serum or plasma vancomycin measurement (mass/volume) 9.0 08/17/2018 [facility] Arterial blood pH measurement 7.22 7.31 - 7.41 08/16/2018 [facility] pCO2 BldA 28 41 - 51 08/16/2018 [facility] pCO2 BldA 132 80 - 105 08/16/2018 [facility] Arterial blood bicarbonate measurement (moles/volume) 12 23 - 28 08/16/2018 [facility] Arterial blood base excess by calculation -16.0 -2 - 3 - 2 08/16/2018 [facility] Arterial blood oxygen saturation measurement 98.0 95 - 98 08/16/2018 [facility] FiO2 21 08/16/2018 [facility] Urine opiates screening test POSITIVE NEGATIVE 08/16/2018 [facility] Barbiturates screen, urine NEGATIVE NEGATIVE 08/16/2018 [facility] Urine phencyclidine detection by screening method NEGATIVE NEGATIVE 08/16/2018 [facility] Urine amphetamines detection by screen method > 1000 ng/mL NEGATIVE NEGATIVE 08/16/2018 [facility] Urine Methamphetamines Screen NEGATIVE NEGATIVE 08/16/2018 [facility] Urine benzodiazepines detection by screening method NEGATIVE NEGATIVE 08/16/2018 [facility] Urine cocaine measurement (mass/volume) NEGATIVE NEGATIVE 08/16/2018 [facility] Urine cannabinoids detection by screening method NEGATIVE NEGATIVE 08/16/2018 [facility] Urine methadone screen NEGATIVE NEGATIVE 08/16/2018 [facility] Hemoglobin A1c Percent 7.6 4.0 - 7.0 08/08/2018 [facility] Hip 2/3 views uni DX Hip 2/3 views uni DX EXAM: XR RIGHT HIP 4 VIEW DATE: 09/12/2017 9:31 AM [employer]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 TECHNIQUE: 4 views of the hip including the pelvis FINDINGS: No acute fracture or malalignment is identified. Marginal acetabular osteophytes present bilaterally (left greater than right). Mild superomedial joint space narrowing bilaterally. No soft tissue abnormality is identified. Pelvic enthesopathy present. IMPRESSION: Mild osteoarthrosis of the hip bilaterally. 09/12/2017 - - This report was dictated by a Nickel Plater/Fellow. I have personally reviewed the images as well as the Resident's interpretation and agree with the findings. Read by: Dru Santillan MD Resident: Dru Santillan MD Dictated Date/time: 09/12/17 09:47 Electronically Signed by: Yashira Ku MD 09/12/17 17:06 FINAL REPORT [facility] [place] Humerus wo contrast MRI Humerus wo contrast MRI EXAMINATION: 1. MRI of the right humerus without contrast 2. MRI of the right elbow without contrast. HISTORY: S46.911A Strain of unspecified muscle, fascia and tendon at shoulder and upper arm level, right arm, initial encounter; right subacromial subdeltoid bursitis; right distal biceps tendinosis; right lateral epicondylitis FINDINGS: Radiographs from September 2005 are reviewed. Multiplanar, multisequence magnetic resonance imaging of the right elbow is performed with an extremity coil without contrast. Transverse, oblique coronal, and oblique sagittal images are obtained. Multiplanar, multisequence magnetic resonance imaging of the right upper arm is performed with a local coil without contrast. RIGHT HUMERUS: There is normal marrow signal intensity throughout the visualized right humerus. Specifically, there is no evidence of fracture, osteonecrosis, or osteomyelitis. There is a small amount of fluid along the anterior aspect of the subacromial subdeltoid bursa extending anterior to the distal subscapularis tendon and bicipital groove. There is normal muscle bulk and signal intensity of the upper arm musculature. The tendons appear normal without evidence of tendinopathy or tear. There is no fascial defect or muscle herniation identified. The neurovascular bundles are normal. RIGHT ELBOW: Ligaments: Ulnar collateral ligament: Intact. Radial collateral ligament: Intact. Lateral ulnar collateral ligament: Intact. Other ligaments and capsule: Intact. Muscles and Tendons: There is moderate tendinopathy at the origin of the common extensor tendons from the lateral humeral epicondyle with a partial-thickness tear at the origin of the extensor carpi radialis brevis tendon. There is also heterotopic ossification at the origin of the common extensor tendons. There is also mild tendinopathy and heterotopic ossification at the origin of the common flexor tendons from the medial humeral epicondyle. There is normal muscle bulk and signal intensity of the musculature at the elbow. There is mild to moderate tendinosis of the distal biceps tendon just proximal to and at its insertion upon the radial tuberosity, but no high-grade partial thickness or full- thickness tear. There is mild subjacent fluid along the distal biceps tendon which either represents distal biceps tenosynovitis or mild bicipitoradial bursitis. The distal brachialis and triceps tendons are intact with enthesopathic heterotopic ossification at the distal triceps tendon insertion. Cartilage: There is mild osteoarthrosis along the lateral aspect of the radiocapitellar articulation with mild asymmetric joint space narrowing and osteophytosis. There is also mild osteophyte formation along the medial aspect of the posterior ulnohumeral articulation and at the proximal radioulnar joint without high-grade chondrosis identified. Bone: There is normal bone marrow signal intensity without evidence of fracture or osteonecrosis. Other: The course and appearance of the ulnar nerve is normal. IMPRESSION: 1. Mild right subacromial subdeltoid bursitis with small amount of fluid along the anterior aspect of the subacromial subdeltoid bursa extending anterior to the distal right subscapularis tendon and bicipital groove. 2. Moderate tendinopathy and heterotopic ossification at the origin of the common extensor tendons from the right lateral humeral epicondyle consistent with chronic moderate lateral epicondylitis with a partial-thickness tear at the origin of the extensor carpi radialis brevis tendon. 3. Mild tendinopathy and heterotopic ossification at the origin of the common flexor tendons from the right medial humeral epicondyle consistent with chronic mild medial epicondylitis without definite tendon tear. 4. Mild to moderate distal right biceps tendinosis with increased intratendinous signal and tendon thickening of the distal biceps tendon just proximal to and at its insertion upon the radial tuberosity without high-grade partial-thickness or full-thickness tear. 5. Small amount of fluid along the distal right biceps tendon consistent with either mild distal biceps tenosynovitis or mild bicipitoradial bursitis. 6. Mild tricompartmental osteoarthrosis of the right elbow with mild tricompartmental osteophyte formation, but no high-grade chondrosis identified. 7. Normal marrow signal intensity throughout the visualized right humerus, as well as, normal muscle bulk and muscle signal intensity of the right upper arm musculature. 07/26/2016 - - Read by: Lorenzo Diane MD Dictated Date/time: 07/26/16 11:33 Electronically Signed by: Lorenzo Diane MD 07/26/16 11:53 FINAL REPORT [facility] Elbow wo contrast MRI Elbow wo contrast MRI EXAMINATION: 1. MRI of the right humerus without contrast 2. MRI of the right elbow without contrast. HISTORY: S46.911A Strain of unspecified muscle, fascia and tendon at shoulder and upper arm level, right arm, initial encounter; right subacromial subdeltoid bursitis; right distal biceps tendinosis; right lateral epicondylitis FINDINGS: Radiographs from September 2005 are reviewed. Multiplanar, multisequence magnetic resonance imaging of the right elbow is performed with an extremity coil without contrast. Transverse, oblique coronal, and oblique sagittal images are obtained. Multiplanar, multisequence magnetic resonance imaging of the right upper arm is performed with a local coil without contrast. RIGHT HUMERUS: There is normal marrow signal intensity throughout the visualized right humerus. Specifically, there is no evidence of fracture, osteonecrosis, or osteomyelitis. There is a small amount of fluid along the anterior aspect of the subacromial subdeltoid bursa extending anterior to the distal subscapularis tendon and bicipital groove. There is normal muscle bulk and signal intensity of the upper arm musculature. The tendons appear normal without evidence of tendinopathy or tear. There is no fascial defect or muscle herniation identified. The neurovascular bundles are normal. RIGHT ELBOW: Ligaments: Ulnar collateral ligament: Intact. Radial collateral ligament: Intact. Lateral ulnar collateral ligament: Intact. Other ligaments and capsule: Intact. Muscles and Tendons: There is moderate tendinopathy at the origin of the common extensor tendons from the lateral humeral epicondyle with a partial-thickness tear at the origin of the extensor carpi radialis brevis tendon. There is also heterotopic ossification at the origin of the common extensor tendons. There is also mild tendinopathy and heterotopic ossification at the origin of the common flexor tendons from the medial humeral epicondyle. There is normal muscle bulk and signal intensity of the musculature at the elbow. There is mild to moderate tendinosis of the distal biceps tendon just proximal to and at its insertion upon the radial tuberosity, but no high-grade partial thickness or full- thickness tear. There is mild subjacent fluid along the distal biceps tendon which either represents distal biceps tenosynovitis or mild bicipitoradial bursitis. The distal brachialis and triceps tendons are intact with enthesopathic heterotopic ossification at the distal triceps tendon insertion. Cartilage: There is mild osteoarthrosis along the lateral aspect of the radiocapitellar articulation with mild asymmetric joint space narrowing and osteophytosis. There is also mild osteophyte formation along the medial aspect of the posterior ulnohumeral articulation and at the proximal radioulnar joint without high-grade chondrosis identified. Bone: There is normal bone marrow signal intensity without evidence of fracture or osteonecrosis. Other: The course and appearance of the ulnar nerve is normal. IMPRESSION: 1. Mild right subacromial subdeltoid bursitis with small amount of fluid along the anterior aspect of the subacromial subdeltoid bursa extending anterior to the distal right subscapularis tendon and bicipital groove. 2. Moderate tendinopathy and heterotopic ossification at the origin of the common extensor tendons from the right lateral humeral epicondyle consistent with chronic moderate lateral epicondylitis with a partial-thickness tear at the origin of the extensor carpi radialis brevis tendon. 3. Mild tendinopathy and heterotopic ossification at the origin of the common flexor tendons from the right medial humeral epicondyle consistent with chronic mild medial epicondylitis without definite tendon tear. 4. Mild to moderate distal right biceps tendinosis with increased intratendinous signal and tendon thickening of the distal biceps tendon just proximal to and at its insertion upon the radial tuberosity without high-grade partial-thickness or full-thickness tear. 5. Small amount of fluid along the distal right biceps tendon consistent with either mild distal biceps tenosynovitis or mild bicipitoradial bursitis. 6. Mild tricompartmental osteoarthrosis of the right elbow with mild tricompartmental osteophyte formation, but no high-grade chondrosis identified. 7. Normal marrow signal intensity throughout the visualized right humerus, as well as, normal muscle bulk and muscle signal intensity of the right upper arm musculature. 07/26/2016 - - Read by: Lorenzo Diane MD Dictated Date/time: 07/26/16 11:33 Electronically Signed by: Lorenzo Diane MD 07/26/16 11:53 FINAL REPORT LEANA Ru[facility] CHEM PANEL Magnesium Lvl 2.4 mg/dL 1.8 - 2.4 04/04/2016 [facility] CHEM PANEL Phosphorus 2.8 mg/dL 2.5 - 4.5 04/04/2016 [facility] ELECTROLYTES Chloride Lvl 102 meq/L 95 - 109 04/04/2016 [facility] ELECTROLYTES Potassium Lvl 4.3 meq/L 3.5 - 5.1 04/04/2016 [facility] ELECTROLYTES Calcium Lvl 8.6 mg/dL 8.5 - 10.5 04/04/2016 [facility] ELECTROLYTES CO2 22 meq/L 24 - 32 04/04/2016 [facility] ELECTROLYTES Sodium Lvl 135 meq/L 135 - 145 04/04/2016 [facility] ELECTROLYTES Glucose Lvl 280 mg/dL 70 - 99 04/04/2016 [facility] ELECTROLYTES BUN 31 mg/dL 7 - 22 04/04/2016 [facility] ELECTROLYTES Creatinine Lvl 1.40 mg/dL 0.50 - 1.40 04/04/2016 [facility] ELECTROLYTES eGFR 58 mL/min/1.73m2 04/04/2016 Result Comment: The eGFR is calculated using the CKD-EPI formula. In most young, healthy individuals the eGFR will be >90 mL/min/1.73m2. The eGFR declines with age. An eGFR of 60-89 may be normal in some populations, particularly the elderly, for whom the CKD-EPI formula has not been extensively validated. Use of the eGFR is not recommended in the following populations: Individuals with unstable creatinine concentrations, including patients and those with serious co-morbid conditions. Patients with extremes in muscle mass or diet. The data above are obtained from the National Kidney Disease Education Program (NKDEP) which additionally recommends that when the eGFR is used in patients with extremes of body mass index for purposes of drug dosing, the eGFR should be multiplied by the estimated BMI. [facility] ELECTROLYTES AGAP 15.3 meq/L 10.0 - 20.0 04/04/2016 [facility] Monocytes # 0.2 K/CMM 0.0 - 0.8 04/04/2016 [facility] HEMATOLOGY Segs 94.9 % 45.0 - 75.0 04/04/2016 [facility] Lymphocytes 3.9 % 20.0 - 40.0 04/04/2016 [facility] Lymphocytes # 0.5 K/CMM 1.0 - 5.5 04/04/2016 [facility] HEMATOLOGY Monocytes 1.2 % 2.0 - 12.0 04/04/2016 [facility] Segs-Bands # 13.0 K/CMM 1.5 - 8.1 04/04/2016 [facility] RDW 13.8 % 11.5 - 14.5 04/04/2016 [facility] Platelet 40 K/CMM 133 - 450 04/04/2016 [facility] MCH 29.6 pg 27.0 - 31.0 04/04/2016 [facility] HEMATOLOGY MCHC 32.0 g/dL 32.0 - 36.0 04/04/2016 [facility] HEMATOLOGY Hgb 13.0 g/dL 14.0 - 18.0 04/04/2016 [facility] HEMATOLOGY Hct 40.6 % 42.0 - 54.0 04/04/2016 [facility] RBC 4.39 M/CMM 4.70 - 6.10 04/04/2016 [facility] WBC 13.7 K/CMM 3.7 - 10.4 04/04/2016 [facility] HEMATOLOGY MCV 92.5 fL 80.0 - 94.0 04/04/2016 [facility] HEMATOLOGY MPV 11.6 fL 7.4 - 10.4 04/04/2016 [facility] CHEM PANEL Phosphorus 1.8 mg/dL 2.5 - 4.5 04/03/2016 [facility] CHEM PANEL Magnesium Lvl 1.6 mg/dL 1.8 - 2.4 04/03/2016 [facility] CHEM PANEL Calcium Lvl 9.2 mg/dL 8.5 - 10.5 04/03/2016 [facility] CHEM PANEL AGAP 15.6 meq/L 10.0 - 20.0 04/03/2016 [facility] CHEM PANEL CO2 24 meq/L 24 - 32 04/03/2016 [facility] CHEM PANEL Chloride Lvl 102 meq/L 95 - 109 04/03/2016 [facility] CHEM PANEL Potassium Lvl 4.6 meq/L 3.5 - 5.1 04/03/2016 [facility] CHEM PANEL Sodium Lvl 137 meq/L 135 - 145 04/03/2016 [facility] CHEM PANEL Creatinine Lvl 1.54 mg/dL 0.50 - 1.40 04/03/2016 [facility] CHEM PANEL eGFR 51 mL/min/1.73m2 04/03/2016 Result Comment: The eGFR is calculated using the CKD-EPI formula. In most young, healthy individuals the eGFR will be >90 mL/min/1.73m2. The eGFR declines with age. An eGFR of 60-89 may be normal in some populations, particularly the elderly, for whom the CKD-EPI formula has not been extensively validated. Use of the eGFR is not recommended in the following populations: Individuals with unstable creatinine concentrations, including patients and those with serious co-morbid conditions. Patients with extremes in muscle mass or diet. The data above are obtained from the National Kidney Disease Education Program (NKDEP) which additionally recommends that when the eGFR is used in patients with extremes of body mass index for purposes of drug dosing, the eGFR should be multiplied by the estimated BMI. [facility] CHEM PANEL Glucose Lvl 342 mg/dL 70 - 99 04/03/2016 [facility] CHEM PANEL BUN 28 mg/dL 7 - 22 04/03/2016 [facility] HEMATOLOGY Basophils 0.2 % 0.0 - 1.0 04/03/2016 [facility] HEMATOLOGY Lymphocytes # 0.3 K/CMM 1.0 - 5.5 04/03/2016 [facility] HEMATOLOGY Segs-Bands # 5.9 K/CMM 1.5 - 8.1 04/03/2016 [facility] Monocytes 0.6 % 2.0 - 12.0 04/03/2016 [facility] Lymphocytes 5.5 % 20.0 - 40.0 04/03/2016 [facility] Eosinophils 0.1 % 0.0 - 4.0 04/03/2016 [facility] Segs 93.6 % 45.0 - 75.0 04/03/2016 [facility] MCH 30.0 pg 27.0 - 31.0 04/03/2016 [facility] MCHC 32.3 g/dL 32.0 - 36.0 04/03/2016 [facility] Hct 44.4 % 42.0 - 54.0 04/03/2016 [facility] MCV 93.0 fL 80.0 - 94.0 04/03/2016 [facility] MPV 10.0 fL 7.4 - 10.4 04/03/2016 [facility] RDW 14.1 % 11.5 - 14.5 04/03/2016 [facility] Platelet 19 K/CMM 133 - 450 04/03/2016 Result Comment: Critical Result(s) called to Ingris Francisco at 04/03/2016 09:51 by tb. Read back OK. [facility] Hgb 14.3 g/dL 14.0 - 18.0 04/03/2016 [facility] RBC 4.77 M/CMM 4.70 - 6.10 04/03/2016 [facility] WBC 6.3 K/CMM 3.7 - 10.4 04/03/2016 [facility] Hgb 13.8 g/dL 14.0 - 18.0 04/03/2016 [facility] Hct 42.2 % 42.0 - 54.0 04/03/2016 [facility] CHEM PANEL eGFR 53 mL/min/1.73m2 04/02/2016 Result Comment: The eGFR is calculated using the CKD-EPI formula. In most young, healthy individuals the eGFR will be >90 mL/min/1.73m2. The eGFR declines with age. An eGFR of 60-89 may be normal in some populations, particularly the elderly, for whom the CKD-EPI formula has not been extensively validated. Use of the eGFR is not recommended in the following populations: Individuals with unstable creatinine concentrations, including patients and those with serious co-morbid conditions. Patients with extremes in muscle mass or diet. The data above are obtained from the National Kidney Disease Education Program (NKDEP) which additionally recommends that when the eGFR is used in patients with extremes of body mass index for purposes of drug dosing, the eGFR should be multiplied by the estimated BMI. [facility] CHEM PANEL Bili Total 0.6 mg/dL 0.2 - 1.3 04/02/2016 [facility] CHEM PANEL Creatinine Lvl 1.49 mg/dL 0.50 - 1.40 04/02/2016 [facility] CHEM PANEL Sodium Lvl 140 meq/L 135 - 145 04/02/2016 [facility] CHEM PANEL BUN 26 mg/dL 7 - 22 04/02/2016 [facility] CHEM PANEL Potassium Lvl 3.7 meq/L 3.5 - 5.1 04/02/2016 [facility] CHEM PANEL Glucose Lvl 128 mg/dL 70 - 99 04/02/2016 [facility] CHEM PANEL AST 19 unit/L 0 - 37 04/02/2016 [facility] CHEM PANEL Alk Phos 79 unit/L 39 - 136 04/02/2016 [facility] CHEM PANEL ALT 33 unit/L 0 - 65 04/02/2016 [facility] CHEM PANEL Calcium Lvl 9.3 mg/dL 8.5 - 10.5 04/02/2016 [facility] CHEM PANEL CO2 24 meq/L 24 - 32 04/02/2016 [facility] CHEM PANEL Albumin Lvl 3.8 g/dL 3.5 - 5.0 04/02/2016 [facility] CHEM PANEL Total Protein 7.5 g/dL 6.4 - 8.4 04/02/2016 [facility] CHEM PANEL Chloride Lvl 104 meq/L 95 - 109 04/02/2016 [facility] CHEM PANEL B/C Ratio 17 6 - 25 04/02/2016 [facility] CHEM PANEL AGAP 15.7 meq/L 10.0 - 20.0 04/02/2016 [facility] CHEM PANEL Globulin 3.7 g/dL 2.0 - 4.0 04/02/2016 [facility] CHEM PANEL A/G Ratio 1.0 0.7 - 1.6 04/02/2016 [facility] PTT 25.6 s 22.9 - 35.8 04/02/2016 [facility] INR 0.97 0.85 - 1.17 04/02/2016 [facility] HEMATOLOGY PT 13.2 s 12.0 - 14.7 04/02/2016 [facility] MCH 29.7 pg 27.0 - 31.0 04/02/2016 [facility] WBC 6.7 K/CMM 3.7 - 10.4 04/02/2016 [facility] RBC 4.80 M/CMM 4.70 - 6.10 04/02/2016 [facility] MCHC 32.4 g/dL 32.0 - 36.0 04/02/2016 [facility] RDW 14.2 % 11.5 - 14.5 04/02/2016 [facility] Platelet 13 K/CMM 133 - 450 04/02/2016 Result Comment: Critical Result(s) called to Tesha Montenegro at 04/02/2016 17:47 byVA. Read back OK. [facility] MPV 9.6 fL 7.4 - 10.4 04/02/2016 [facility] MCV 91.8 fL 80.0 - 94.0 04/02/2016 [facility] Lymphocytes 17.6 % 20.0 - 40.0 04/02/2016 [facility] Segs 71.3 % 45.0 - 75.0 04/02/2016 [facility] Plt Morph Normal (04/02/16 5:15 PM) 04/02/2016 [facility] RBC Morph Normal (04/02/16 5:15 PM) 04/02/2016 [facility] Monocytes 6.9 % 2.0 - 12.0 04/02/2016 [facility] Lymphocytes # 1.2 K/CMM 1.0 - 5.5 04/02/2016 [facility] Segs-Bands # 4.8 K/CMM 1.5 - 8.1 04/02/2016 [facility] Basophils 0.8 % 0.0 - 1.0 04/02/2016 [facility] HEMATOLOGY Eosinophils 3.4 % 0.0 - 4.0 04/02/2016 [facility] HEMATOLOGY Basophils # 0.1 K/CMM 0.0 - 0.2 04/02/2016 [facility] HEMATOLOGY Eosinophils # 0.2 K/CMM 0.0 - 0.5 04/02/2016 [facility] HEMATOLOGY Monocytes # 0.5 K/CMM 0.0 - 0.8 04/02/2016 [facility] Bacterial urine culture Urine Culture [facility] Vital Signs Vital Sign Value Date Comments Source BMI Calculated 31.76 01/19/2019 [facility] Weight 109.205 01/19/2019 [facility] Respitory Rate 16 01/19/2019 [facility] Height 185.42 cm 01/19/2019 [facility] Temperature Oral (F) 98.6 F 01/19/2019 [facility] Systolic (mm Hg) 107 01/19/2019 [facility] Diastolic (mm Hg) 64 01/19/2019 [facility] Weight 136.909 06/18/2018 [facility] BMI Calculated 39.82 06/18/2018 [facility] Height 185.42 cm 06/18/2018 [facility] Respitory Rate 16 06/18/2018 [facility] Heart Rate 66 06/18/2018 [facility] Systolic (mm Hg) 113 06/18/2018 [facility] Diastolic (mm Hg) 60 06/18/2018 [facility] Temperature Oral (F) 97.7 F 06/18/2018 [facility] Temperature Oral (F) 97.7 F 03/13/2018 [facility] Systolic (mm Hg) 110 03/13/2018 [facility] Diastolic (mm Hg) 70 03/13/2018 [facility] Respitory Rate 16 03/13/2018 [facility] Heart Rate 74 03/13/2018 [facility] BMI Calculated 39.43 03/13/2018 [facility] Weight 135.568 03/13/2018 [facility] Height 185.42 cm 03/13/2018 [facility] Height 185.42 cm 12/12/2017 [facility] BMI Calculated 39.13 12/12/2017 [facility] Weight 134.545 12/12/2017 [facility] Respitory Rate 14 12/12/2017 [facility] Temperature Oral (F) 98.6 F 12/12/2017 [facility] Heart Rate 65 12/12/2017 [facility] Systolic (mm Hg) 119 12/12/2017 [facility] Diastolic (mm Hg) 71 12/12/2017 [facility] Temperature Oral (F) 98.1 F 10/31/2017 [facility] Heart Rate 65 10/31/2017 [facility] Systolic (mm Hg) 121 10/31/2017 [facility] Diastolic (mm Hg) 71 10/31/2017 [facility] BMI Calculated 39 10/31/2017 [facility] Weight 134.091 10/31/2017 [facility] Height 185.42 cm 10/31/2017 [facility] Respitory Rate 14 10/31/2017 [facility] Respitory Rate 18 04/04/2016 [facility] Heart Rate 62 04/04/2016 [facility] Temperature Oral (F) 97.6 F 04/04/2016 [facility] Systolic (mm Hg) 115 04/04/2016 [facility] Diastolic (mm Hg) 70 04/04/2016 [facility] Temperature Oral (F) 97.3 F 04/04/2016 [facility] Respitory Rate 18 04/04/2016 [facility] Heart Rate 54 04/04/2016 [facility] Systolic (mm Hg) 94 04/04/2016 [facility] Diastolic (mm Hg) 58 04/04/2016 [facility] Heart Rate 60 04/04/2016 [facility] Temperature Oral (F) 97.4 F 04/04/2016 [facility] Respitory Rate 18 04/04/2016 [facility] Systolic (mm Hg) 90 04/04/2016 [facility] Diastolic (mm Hg) 49 04/04/2016 [facility] Weight 127.273 04/03/2016 [facility] BMI Calculated 37.02 04/03/2016 [facility] Height 185.42 cm 04/03/2016 [facility] Weight 127.273 04/02/2016 [facility] BMI Calculated 38.05 04/02/2016 [facility] Height 182.88 cm 04/02/2016 [facility] Encounters Location Location Details Encounter Type Encounter Number Reason For Visit Attending Provider ADM Date DC Date Status Source Outpatient [id number] JORGE ALBERTO SCHAEFER 09/11/[address] [facility] [id number] JORGE ALBERTO SCHAEFER 10/05/[address] [facility] Outpatient [id number] JORGE ALBERTO SCHAEFER 10/19/[address] [facility] Outpatient [id number] JORGE ALBERTO SCHAEFER 12/14/[address] [facility] Outpatient [id number] JORGE ALBERTO SCHAEFER 03/27/2016 Active [facility] Inpatient [id number] Duong Chambersiq 04/02/2016 04/04/2016 [facility] Outpatient [id number] JORGE ALBERTO SCHAEFER 04/11/2016 Active [facility] Outpatient [id number] JORGE ALBERTO SCHAEFER 04/30/2016 Active [facility] Outpatient [id number] JORGE ALBERTO SCHAEFER 05/01/2016 Active [facility] Outpatient [id number] JORGE ALBERTO SCHAEFER 07/03/2016 Active [facility] Outpatient [id number] JORGE ALBERTO SCHAEFER 07/17/2016 Active [facility] [place] [facility] [id number] Jorge Alberto Schaefer 07/26/2016 07/27/2016 [facility] [place] Outpatient [id number] JORGE ALBERTO SCHAEFER 09/05/2016 Active [facility] Outpatient [id number] JORGE ALBERTO SCHAEFER 12/09/2016 Active [facility] Outpatient [id number] JORGE ALBERTO SCHAEFER 03/12/2017 Active [facility] Outpatient [id number] JORGE ALBERTO SCHAEFER 06/11/2017 Active [facility] Outpatient [id number] JORGE ALBERTO SCHAEFER 09/11/2017 Active [facility] [place] [facility] [id number] Jorge Alberto Schaefer 09/12/2017 09/13/2017 [facility] Phone Message [id number] 09/14/2017 09/15/2017 [facility] Phone Message [id number] 09/16/2017 09/18/2017 [facility] Phone Message [id number] 09/17/2017 09/19/2017 [facility] Phone Message [id number] 10/21/2017 10/23/2017 [facility] Outpatient [id number] JORGE ALBERTO SCHAEFER 10/31/2017 [facility] [id number] Jorge Alberto Schaefer 10/31/2017 11/01/2017 [facility] Phone Message [id number] 11/04/2017 11/06/2017 [facility] Outpatient [id number] JORGE ALBERTO SCHAEFER 12/12/2017 Active [facility] Outpatient [id number] Jorge Alberto Schaefer 12/12/2017 12/13/2017 [facility] Outpatient [id number] JORGE ALBERTO SCHAEFER 03/13/2018 Active [facility] Outpatient [id number] Jorge Alberto Schaefer 03/13/2018 03/14/2018 [facility] Phone Message [id number] 04/13/2018 04/15/2018 [facility] Outpatient [id number] JORGE ALBERTO SCHAEFER 06/18/2018 Active [facility] Outpatient [id number] Jorge Alberto Schaefer 06/18/2018 06/19/2018 [facility] [id number] JOSÉ MIGUEL MEMBRENO MD 07/07/2018 [facility] Discharged Inpatient [id number] KODAK MARLOW MD 08/03/2018 08/11/2018 [facility] Discharged Inpatient [id number] KODAK MARLOW MD 08/16/2018 08/28/2018 [facility] Outpatient [id number] JORGE ALBERTO SCHAEFER 09/02/2018 Active [facility] Departed Emergency Room [id number] DILEEP HOLT MD 09/03/2018 09/04/2018 [facility] Discharged Inpatient (obs) [id number] KODAK MARLOW MD 09/10/2018 09/11/2018 [facility] Outpatient [id number] JORGE ALBERTO SCHAEFER 09/23/2018 Active [facility] Outpatient [id number] JORGE ALBERTO SCHAEFER 09/28/2018 Active [facility] Departed Emergency Room [id number] YONAS MORRISON MD 10/20/2018 10/20/2018 [facility] Discharged Inpatient (obs) [id number] KODAK MARLOW MD 11/12/2018 11/13/2018 [facility] Departed Emergency Room [id number] ANJALI PRINCE MD 12/15/2018 12/15/2018 [facility] Outpatient [id number] JORGE ALBERTO SCHAEFER 12/29/2018 Active [facility] Primary [facility] Ambulatory Pre-Reg [id number] Jorge Alberto Schaefer 12/29/2018 12/29/2018 [facility] Discharged Inpatient [id number] KODAK MARLOW MD 12/31/2018 01/05/2019 [facility] Outpatient [id number] JORGE ALBERTO SCHAEFER 01/19/2019 Active [facility] Outpatient [id number] Jorge Alberto Schaefer 01/19/2019 01/20/2019 [facility] Outpatient [id number] JORGE ALBERTO SCHAEFER 01/21/2019 Active [facility] Ambulatory Pre-Reg [id number] Jorge Alberto Schaefer 01/21/2019 01/21/2019 [facility] Phone Message [id number] 01/26/2019 01/28/2019 [facility]patient [facility] - [place] Out[facility] Diag Services [id number] Jorge Alberto Schaefer 02/09/2019 2019 [facility] [place] [facility] Phone Message [id number] 02/12/2019 02/14/2019 [facility] Outpatient [id number] Jorge Alberto Schaefer 04/29/2019 Active [facility] Procedures Procedure Code Date Perfomer Comments Source Computed tomography of brain without radiopaque contrast [id number] 12/31/2018 [facility] CT of abdomen and pelvis without contrast [id number] 12/31/2018 [facility] X-ray of chest, two views [id number] 12/15/2018 [facility] [id number] 11/12/2018 JONATHON [facility] HEMODIALYSIS ONE EVALUATION [id number] 11/12/2018 [facility] BLOOD TRANSFUSION SERVICE [id number] 09/10/2018 [facility] HEMODIALYSIS ONE EVALUATION [id number] 09/10/2018 [facility] Influenza vaccination [id number] 09/02/2018 [facility] Pneumococcal vaccination<sup>1</sup> [id number] 09/02/2018 Prevnar- 13 [facility] Influenza vaccination [id number] 09/02/2018 [facility] [place] Pneumococcal vaccination<sup>1</sup> [id number] 09/02/2018 Prevnar- 13 [facility] [place] PERFORMANCE OF URINARY FILTRATION, 6-18 HRS/DAY [id number] 08/27/2018 [facility] REMOVAL OF INTRALUMINAL DEVICE FROM URETER, ENDO [id number] 08/27/2018 [facility] INSERTION OF INFUSION DEV INTO SUP VENA CAVA, PERC APPROACH [id number] 08/27/2018 [facility] FLUOROSCOPY OF KIDNEY, URETER & BLADDER USING L OSM CONTRAST [id number] 08/27/2018 [facility] PERFORMANCE OF URINARY FILTRATION, 6-18 HRS/DAY [id number] 08/24/2018 [facility] PERFORMANCE OF URINARY FILTRATION, 6-18 HRS/DAY [id number] 08/21/2018 [facility] TRANSFUSE NONAUT RED BLOOD CELLS IN CENTRAL VEIN, PERC [id number] 08/20/2018 [facility] PERFORMANCE OF URINARY FILTRATION, 6-18 HRS/DAY [id number] 08/19/2018 [facility] PERFORMANCE OF URINARY FILTRATION, 6-18 HRS/DAY [id number] 08/18/2018 [facility] INSERTION OF INFUSION DEV INTO SUP VENA CAVA, PERC APPROACH [id number] 08/18/2018 [facility] Ultrasound guidance for vascular access [id number] 08/17/[address] [facility] [address] of abdomen and pelvis without contrast [id number] 08/16/2018 [facility] Computed tomography of brain without radiopaque contrast [id number] 08/16/2018 [facility] Cystoprostatectomy [id number] 08/03/2018 [facility] Cystoprostatectomy [id number] 08/03/2018 [facility] [place] REPLACEMENT OF BLADDER WITH AUTOL SUB, OPEN APPROACH [id number] 08/03/2018 [facility] BYPASS BILATERAL URETERS TO ILEOCUTANEOUS, OPEN APPROACH [id number] 08/03/2018 [facility] EXCISION OF PELVIS LYMPHATIC, OPEN APPROACH, DIAGNOSTIC [id number] 08/03/2018 [facility] RESECTION OF BLADDER, OPEN APPROACH [id number] 08/03/2018 [facility] EXCISION OF AORTIC LYMPHATIC, OPEN APPROACH, DIAGNOSTIC [id number] 08/03/2018 [facility] EXCISION OF PROSTATE, OPEN APPROACH, DIAGNOSTIC [id number] 08/03/2018 [facility] EXCISION OF RIGHT SEMINAL VESICLE, OPEN APPROACH, DIAGNOSTIC [id number] 08/03/2018 [facility] EXCISION OF LEFT URETER, OPEN APPROACH [id number] 08/03/2018 [facility] EXCISION OF RIGHT URETER, OPEN APPROACH [id number] 08/03/2018 [facility] X-ray of chest, two views [id number] 07/30/2018 [facility] X-ray of chest, two views [id number] 07/07/2018 [facility] Computed tomography of abdomen and pelvis with contrast [id number] 07/07/2018 [facility] Iv Infus, Hydrat 31MIN-[id number] 07/07/2018 [facility] Transurethral resection of bladder tumor [id number] 11/21/2017 [facility] Transurethral resection of bladder tumor [id number] 11/21/2017 [facility] [place] Biopsy of gallbladder [id number] 11/03/2017 [facility] Influenza vaccination [id number] 09/11/2017 [facility] Esophagogastroduodenoscopy<sup>1</sup> [id number] 12/06/2015 large hiatal hernia, gastritis [facility] Esophagogastroduodenoscopy<sup>1</sup> [id number] 12/06/2015 large hiatal hernia, gastritis [facility] [place] Esophagogastroduodenoscopy<sup>1</sup> [id number] 12/06/2015 large hiatal hernia, gastritis [facility] Esophagogastroduodenoscopy<sup>2</sup> [id number] 12/06/2015 large hiatal hernia, gastritis [facility] Esophagogastroduodenoscopy<sup>1</sup> [id number] 12/06/2015 large hiatal hernia, gastritis [facility] [place] Esophagogastroduodenoscopy<sup>2</sup> [id number] 12/06/2015 large hiatal hernia, gastritis [facility] [place] Pneumococcal vaccination<sup>2</sup> [id number] 02/04/2014 [facility] Pneumococcal vaccination<sup>3</sup> [id number] 02/04/2014 [facility] Pneumococcal vaccination<sup>3</sup> [id number] 02/04/2014 [facility] [place] Colonoscopy<sup>2, 3</sup> [id number] 10/13/2009 diverticulosis, repeat in 5-10 yearsper pt [facility] Colonoscopy<sup>2, 3</sup> [id number] 10/13/2009 diverticulosis, repeat in 5-10 yearsper pt [facility] [place] Colonoscopy<sup>3, 4</sup> [id number] 10/13/2009 diverticulosis, repeat in 5-10 yearsper pt [facility] Colonoscopy<sup>2, 3</sup> [id number] 10/13/2009 diverticulosis, repeat in 5-10 yearsper pt [facility] Colonoscopy<sup>4, 5</sup> [id number] 10/13/2009 diverticulosis, repeat in 5-10 yearsper pt [facility] Colonoscopy<sup>2, 3</sup> [id number] 10/13/2009 diverticulosis, repeat in 5-10 yearsper pt [facility] [place] Colonoscopy<sup>4, 5</sup> [id number] 10/13/2009 diverticulosis, repeat in 5-10 yearsper pt [facility] [place]
--- OUTSIDE RECORDS SUMMARY | 2019-02-20 14:54 | XMS REPORT | Summary of Care ---
Author Author [facility] Organization [facility] Address Unknown Phone Unavailable Encounter CHRISTINA Gomez(FIN) [id number] Date(s): 10/31/17 - 10/31/17 [facility] [address], [address] [place] [address]- [phone] Discharge Disposition: Home or Self Care Attending Physician: Melanie Burrows MD Vital Signs Most recent to 1 oldest [Reference Range]: Height 185.42 cm (10/31/17 10:06 AM) Temperature Oral 98.1 DegF [96.4-99.1 DegF] (10/31/17 10:06 AM) Blood Pressure 121/71 mmHg [90-140/60-90 mmHg] (10/31/17 10:06 AM) Respiratory Rate 14 BRMIN [14-20 BRMIN] (10/31/17 10:06 AM) Peripheral Pulse 65 bpm Rate [60-100 bpm] (10/31/17 10:06 AM) Weight 134.091 kg (10/31/17 10:06 AM) Body Mass Index 39 m2 (10/31/17 10:06 AM) Problem List Condition Effective Dates Status [...] 04/20/14 Active Idiopathic Resolved thrombocytopenic purpura (ITP)(Confirmed) 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) Melena(Confirmed) Resolved Mixed Active hyperlipidemia(Confi rmed)3 Bladder Active tumor(Confirmed) Numbness of right Active anterior thigh(Confirmed) Obstructive sleep 07/09/13 Active apnea syndrome4 Annual physical Active exam(Confirmed) Post-poliomyelitis Active syndrome(Confirmed)5 Preoperative Active clearance(Confirmed) Pulmonary embolism6 02/04/14 Resolved Elevated Active PSA(Confirmed) [...] Reaction Severity Status NKDA Active Medications No Known Medications Results No data available for this section Immunizations Given and Recorded Vaccine Date Status Refusal Reason influenza virus vaccine, inactivated1 09/11/17 Given influenza virus vaccine, inactivated 09/05/16 Given influenza virus vaccine, inactivated 09/11/15 Given influenza virus vaccine, inactivated2 07/29/14 Given pneumococcal 23-valent vaccine3 02/04/14 Given 1Result Comment: Patient waited 15 min with no reaction. 2Result Comment: fluzone high dose [[id number]]. Migrated from OBS ; Data migrated from [employer] on 12/05/2015. 3Result Comment: pneumovax 23 [cvx33]. Migrated from OBS VIS: Pneumovax 23: 08-08-09 ; Data migrated from [email or web address] on 12/05/2015. Procedures Procedure Date Related Diagnosis Body Site Esophagogastroduodenoscopy1 12/06/15 Colonoscopy2, 3 10/13/09 1large hiatal hernia, gastritis 2diverticulosis, repeat in 5-10 years 3per pt Social History Social History Type Response Substance Abuse Use: None. Exercise Exercise duration: 30. Exercise type: Walking. 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 Alcohol Never Smoking Status Former smoker; Type: Cigarettes; Concerns about tobacco use in household: No; Exposure to Tobacco Smoke None; Cigarette Smoking Last 365 Days No; Reg Smoking Cessation Counseling No; Tobacco use per day: 8; Stopped at age: 24; Assessment and Plan No data available for this section
--- OUTSIDE RECORDS SUMMARY | 2019-02-20 14:54 | XMS REPORT | Summary of Care ---
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 2Result Comment: fluzone high dose [khn810]. Migrated from OBS ; Data migrated from [employer] on 12/05/2015. 3Result Comment: pneumovax 23 [cvx33]. Migrated from OBS VIS: Pneumovax 23: 08-08-09 ; Data migrated from [employer] on 12/05/2015. Procedures Procedure Date Related Diagnosis Body Site Esophagogastroduodenoscopy1 12/06/15 Colonoscopy2, 3 10/13/09 1large hiatal hernia, gastritis 2diverticulosis, repeat in 5-10 years 3per pt Social History Social History Type Response Substance Abuse Use: None. Exercise Exercise duration: 30. Exercise type: Walking. 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 Alcohol Never Smoking Status Former smoker; Type: Cigarettes; Concerns about tobacco use in household: No; Exposure to Tobacco Smoke None; Cigarette Smoking Last 365 Days No; Reg Smoking Cessation Counseling No; Tobacco use per day: 8; Stopped at age: 24; Assessment and Plan No data available for this section
--- OUTSIDE RECORDS SUMMARY | 2019-02-20 14:54 | XMS REPORT | Summary of Care ---
Author Author [facility] Organization [facility] Address Unknown Phone Unavailable Encounter HQ Jason(FIN) [id number] Date(s): 01/26/19 - 01/27/19 [facility] [address] [place] [address]- [phone] Vital Signs No data available for this section Problem List Condition Effective Dates Status Health Status Informant Acute Resolved pancreatitis(Confirm ed) Anemia due to Active chronic kidney disease(Confirmed) Anemia of chronic Resolved renal failure(Confirmed) Benign hypertension Active with end-stage renal disease(Confirmed) BMI Active 31.0-31.9,adult(Conf irmed) Bladder Active carcinoma(Confirmed) Dementia(Confirmed) Active CPAP (continuous Active positive airway pressure) dependence(Confirmed ) Dependent on Active hemodialysis(Confirm ed) DVT - Deep vein Resolved thrombosis of lower limb(Confirmed) End stage renal Active disease(Confirmed) S/P radical Resolved cystoprostatectomy(C onfirmed) Hallucinations(Confi Active rmed) Hearing loss1 04/20/14 Active Hyperkalemia(Confirm Resolved ed) Idiopathic Resolved thrombocytopenic purpura (ITP)(Confirmed) longterm current Active use of insulin(Confirmed) Major Active depression(Confirmed ) Melena(Confirmed) Resolved Mixed Active hyperlipidemia(Confi rmed)2 Obesity(Confirmed) Active Obstructive sleep 07/09/13 Active apnea syndrome(Confirmed)3 Post-poliomyelitis Active syndrome(Confirmed)4 Pulmonary embolism5 02/04/14 Resolved Recurrent Active UTI(Confirmed) Seasonal allergic 04/20/14 Active rhinitis6 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 2Data migrated from [employer] on 04/01/15. 3Data migrated from [employer] on 04/01/15. 4Data migrated from [employer] on 04/01/15. 5Data migrated from [employer] on 04/01/15. 6Data migrated from [employer] on 04/01/15. Allergies, [...] no reaction. 4Result Comment: fluzone high dose [piw866]. Migrated from OBS ; Data migrated from [employer] on 12/05/2015. 5Result Comment: pneumovax 23 [cvx33]. Migrated from OBS VIS: Pneumovax 23: 08-08-09 ; Data migrated from [employer] on 12/05/2015. Procedures Procedure Date Related Diagnosis [...] type: Walking. 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 Alcohol Never Smoking Status Former smoker; Type: Cigarettes; Concerns about tobacco use in household: No; Exposure to Tobacco Smoke None; Cigarette Smoking Last 365 Days No; Reg Smoking Cessation Counseling No; Tobacco use per day: 8; Stopped at age: 24; entered on: 01/19/19 Assessment and Plan No data available for this section
--- OUTSIDE RECORDS SUMMARY | 2019-02-20 14:54 | XMS REPORT | Summary of Care ---
Author Author [facility] Organization [facility] Address Unknown Phone Unavailable Encounter HQ Jason(FIN) [id number] Date(s): 12/29/18 - 12/29/18 [facility] [address], [address] [place], [place] [address]- [phone] Attending Physician: Melanie Burrows MD Vital Signs [...] Idiopathic Resolved thrombocytopenic purpura (ITP)(Confirmed) Dyspepsia(Confirmed) Active group home current Active use of insulin(Confirmed) Major Active [...] no reaction. 4Result Comment: fluzone high dose [kji027]. Migrated from OBS ; Data migrated from [employer] on 12/05/2015. 5Result Comment: pneumovax 23 [cvx33]. Migrated from OBS VIS: Pneumovax 23: 08-08-09 ; Data migrated from [employer] on 12/05/2015. Procedures Procedure Date Related Diagnosis [...] type: Walking. 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 Alcohol Never Smoking Status Former smoker; Type: Cigarettes; Concerns about tobacco use in household: No; Exposure to Tobacco Smoke None; Cigarette Smoking Last 365 Days No; Reg Smoking Cessation Counseling No; Tobacco use per day: 8; Stopped at age: 24; entered on: 09/28/18 Assessment and Plan No data available for this section
--- OUTSIDE RECORDS SUMMARY | 2019-02-20 14:54 | XMS REPORT | Summary of Care ---
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 2Result Comment: fluzone high dose [cya940]. Migrated from OBS ; Data migrated from [employer] on 12/05/2015. 3Result Comment: pneumovax 23 [cvx33]. Migrated from OBS VIS: Pneumovax 23: 08-08-09 ; Data migrated from [employer] on 12/05/2015. Procedures Procedure Date Related Diagnosis Body Site Esophagogastroduodenoscopy1 12/06/15 Colonoscopy2, 3 10/13/09 1large hiatal hernia, gastritis 2diverticulosis, repeat in 5-10 years 3per pt Social History Social History Type Response Substance Abuse Use: None. Exercise Exercise duration: 30. Exercise type: Walking. 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 Alcohol Never Smoking Status Former smoker; Type: Cigarettes; Concerns about tobacco use in household: No; Exposure to Tobacco Smoke None; Cigarette Smoking Last 365 Days No; Reg Smoking Cessation Counseling No; Tobacco use per day: 8; Stopped at age: 24; Assessment and Plan No data available for this section
--- OUTSIDE RECORDS SUMMARY | 2019-02-20 14:54 | XMS REPORT | Summary of Care ---
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 2Result Comment: fluzone high dose [mlt351]. Migrated from OBS ; Data migrated from [employer] on 12/05/2015. 3Result Comment: pneumovax 23 [cvx33]. Migrated from OBS VIS: Pneumovax 23: 08-08-09 ; Data migrated from [email or web address] on 12/05/2015. Procedures Procedure Date Related Diagnosis Body Site Esophagogastroduodenoscopy1 12/06/15 Colonoscopy2, 3 10/13/09 1large hiatal hernia, gastritis 2diverticulosis, repeat in 5-10 years 3per pt Social History Social History Type Response Substance Abuse Use: None. Exercise Exercise duration: 30. Exercise type: Walking. 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 Alcohol Never Smoking Status Former smoker; Type: Cigarettes; Concerns about tobacco use in household: No; Exposure to Tobacco Smoke None; Cigarette Smoking Last 365 Days No; Reg Smoking Cessation Counseling No; Tobacco use per day: 8; Stopped at age: 24; Assessment and Plan No data available for this section
--- OUTSIDE RECORDS SUMMARY | 2019-02-20 14:54 | XMS REPORT | Summary of Care ---
Author Author [facility] Organization [facility] Address Unknown Phone Unavailable Encounter HQ Jason(FIN) [id number] Date(s): 12/12/17 - 12/12/17 [facility] [address], [address] [place], [place] [address]- [phone] Discharge Disposition: Home or Self Care Attending Physician: Melanie Burrows MD Vital Signs Most recent to 1 oldest [Reference Range]: Height 185.42 cm (12/12/17 10:22 AM) Temperature Oral 98.6 DegF [96.4-99.1 DegF] (12/12/17 10:22 AM) Blood Pressure 119/71 mmHg [90-140/60-90 mmHg] (12/12/17 10:22 AM) Respiratory Rate 14 BRMIN [14-20 BRMIN] (12/12/17 10:22 AM) Peripheral Pulse 65 bpm Rate [60-100 bpm] (12/12/17 10:22 AM) Weight 134.545 kg (12/12/17 10:22 AM) Body Mass Index 39.13 m2 (12/12/17 10:22 AM) Problem List Condition Effective Dates Status [...] 04/20/14 Active Idiopathic Resolved thrombocytopenic purpura (ITP)(Confirmed) 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) Melena(Confirmed) Resolved Mixed Active hyperlipidemia(Confi rmed)3 Bladder Active tumor(Confirmed) Numbness of right Active anterior thigh(Confirmed) Obstructive sleep 07/09/13 Active apnea syndrome(Confirmed)4 Annual [...] Substance Reaction Severity Status NKDA Active Medications Basaglar KwikPen 100 units/mL subcutaneous solution 20 unit, SUB-Q, Bedtime, # 6 box, 1 Refill(s) Start Date: 12/27/17 Status: Ordered Results No data available for this section Immunizations Given and Recorded Vaccine Date Status Refusal Reason influenza virus vaccine, inactivated1 09/11/17 Given influenza virus vaccine, inactivated 09/05/16 Given influenza virus vaccine, inactivated 09/11/15 Given influenza virus vaccine, inactivated2 07/29/14 Given pneumococcal 23-valent vaccine3 02/04/14 Given 1Result Comment: Patient waited 15 min with no reaction. 2Result Comment: fluzone high dose [ioe708]. Migrated from OBS ; Data migrated from [employer] on 12/05/2015. 3Result Comment: pneumovax 23 [cvx33]. Migrated from OBS VIS: Pneumovax 23: 08-08-09 ; Data migrated from [employer] on 12/05/2015. Procedures Procedure Date Related Diagnosis Body Site Status Esophagogastroduodenoscopy1 12/06/15 Completed Colonoscopy2, 3 10/13/09 Completed 1large hiatal hernia, gastritis 2diverticulosis, repeat in 5-10 years 3per pt Social History Social History Type Response Substance Abuse Use: None. Exercise Exercise duration: 30. Exercise type: Walking. 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 Alcohol Never Smoking Status Former smoker; Type: Cigarettes; Concerns about tobacco use in household: No; Exposure to Tobacco Smoke None; Cigarette Smoking Last 365 Days No; Reg Smoking Cessation Counseling No; Tobacco use per day: 8; Stopped at age: 24; entered on: 12/12/17 Assessment and Plan No data available for this section
--- OUTSIDE RECORDS SUMMARY | 2019-02-20 14:55 | XMS REPORT | Summary of Care ---
Author Author [facility] Organization [facility] Address Unknown Phone Unavailable Encounter HQ Jason(FIN) [phone] Date(s): 01/21/19 - 01/21/19 [facility] [address] [place] [address]- Attending Physician: Melanie Burrows MD Vital Signs No data available for this section Problem List Condition Effective Dates Status Health Status Informant Acute Resolved pancreatitis(Confirm ed) Anemia due to Active chronic kidney disease(Confirmed) Anemia of chronic Resolved renal failure(Confirmed) Benign hypertension Active with end-stage renal disease(Confirmed) Benign prostatic 11/03/59 Active hyperplasia(Confirme d)1 BMI Active 31.0-31.9,adult(Conf irmed) Bladder Active carcinoma(Confirmed) Dementia(Confirmed) Active CPAP (continuous Active positive airway pressure) dependence(Confirmed ) Dependent on Active hemodialysis(Confirm ed) DVT - Deep vein Resolved thrombosis of lower limb(Confirmed) End stage renal Active disease(Confirmed) S/P radical Resolved cystoprostatectomy(C onfirmed) Hallucinations(Confi Active rmed) Hearing loss2 04/20/14 Active Hyperkalemia(Confirm Resolved ed) Idiopathic Resolved thrombocytopenic purpura (ITP)(Confirmed) Dyspepsia(Confirmed) Active prison current Active use of insulin(Confirmed) Major Active depression(Confirmed ) Melena(Confirmed) Resolved Mixed Active hyperlipidemia(Confi rmed)3 Obesity(Confirmed) Active Obstructive sleep 07/09/13 Active apnea syndrome(Confirmed)4 Annual physical Active exam(Confirmed) Post-poliomyelitis Active syndrome(Confirmed)5 Pulmonary embolism6 02/04/14 Resolved Elevated Active PSA(Confirmed) Recurrent Active UTI(Confirmed) Screening for Active prostate cancer(Confirmed) Seasonal allergic [...] no reaction. 4Result Comment: fluzone high dose [[id number]]. Migrated from OBS ; Data migrated from [employer] on 12/05/2015. 5Result Comment: pneumovax 23 [[id number]]. Migrated from OBS VIS: Pneumovax 23: 08-08-09 ; Data migrated from [employer] on 12/05/2015. Procedures Procedure Date Related Diagnosis [...] type: Walking. 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 Alcohol Never Smoking Status Former smoker; Type: Cigarettes; Concerns about tobacco use in household: No; Exposure to Tobacco Smoke None; Cigarette Smoking Last 365 Days No; Reg Smoking Cessation Counseling No; Tobacco use per day: 8; Stopped at age: 24; entered on: 01/19/19 Assessment and Plan No data available for this section
--- OUTSIDE RECORDS SUMMARY | 2019-02-20 14:55 | XMS REPORT | Summary of Care ---
Author Author [facility] Organization [facility] Address Unknown Phone Unavailable Encounter HQ Jason(FIN) [id number] Date(s): 03/13/18 - 03/13/18 [facility] [address], [address] [place] [address]- [phone] Discharge Disposition: Home or Self Care Attending Physician: Melanie Burrows MD Vital Signs Most recent to 1 oldest [Reference Range]: Height 185.42 cm (03/13/18 10:27 AM) Temperature Oral 97.7 DegF [96.4-99.1 DegF] (03/13/18 10:27 AM) Blood Pressure 110/70 mmHg [90-140/60-90 mmHg] (03/13/18 10:27 AM) Respiratory Rate 16 BRMIN [14-20 BRMIN] (03/13/18 10:27 AM) Peripheral Pulse 74 bpm Rate [60-100 bpm] (03/13/18 10:27 AM) Weight 135.568 kg (03/13/18 10:27 AM) Body Mass Index 39.43 m2 (03/13/18 10:27 AM) Problem List Condition Effective Dates Status Health Status Informant Acute Resolved pancreatitis(Confirm ed) Anemia due to Active chronic kidney disease(Confirmed) Anemia of chronic Resolved renal failure(Confirmed) Hip [...] Exertional Active dyspnea(Confirmed) Hearing loss2 04/20/14 Active Hyperkalemia(Confirm Active ed) Idiopathic Resolved thrombocytopenic purpura (ITP)(Confirmed) 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(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) Melena(Confirmed) Resolved Mixed Active hyperlipidemia(Confi rmed)3 Bladder Active tumor(Confirmed) Numbness of right Active anterior thigh(Confirmed) Obstructive sleep 07/09/13 Active apnea syndrome(Confirmed)4 Annual physical Active exam(Confirmed) Post-poliomyelitis Active syndrome(Confirmed)5 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) Pulmonary embolism6 02/04/14 Resolved Elevated Active PSA(Confirmed) Screening for Active diabetic retinopathy(Confirme d) Screening for Active prostate cancer(Confirmed) Seasonal allergic 04/20/14 Active rhinitis7 Right shoulder Active strain(Confirmed) Stenosis of right Active popliteal artery(Confirmed) Strain of right Active upper arm(Confirmed) Type 2 diabetes with Active stage 3 [...] Substance Reaction Severity Status NKDA Active Medications atorvastatin 20 mg oral tablet 20 mg=1 tab, PO, Bedtime, # 90 tab, 1 Refill(s), Pharmacy: [facility] Start Date: 03/13/18 Status: Ordered hydrochlorothiazide 25 mg oral tablet 25 mg=1 tab, PO, Daily, # 90 tab, 1 Refill(s), Pharmacy: [facility] Start Date: 03/13/18 Status: Ordered lisinopril 40 mg oral tablet 40 mg=1 tab, PO, BID, # 180 tab, 1 Refill(s), Pharmacy: [facility] Start Date: 03/13/18 Status: Ordered metFORMIN 1000 mg oral tablet 1,000 mg=1 tab, PO, BID, # 180 tab, 1 Refill(s), Pharmacy: [facility] Start Date: 03/13/18 Stop Date: 09/09/18 Status: Ordered NovoFine Insulin Pen [place] 32G 6 mm=1/4 inch Patient injects insulin three times daily., MISC, TID, # 100 ea, 5 Refill(s) Start Date: 03/13/18 Status: Ordered omeprazole 40 mg oral delayed release capsule 40 mg=1 cap, PO, Daily, # 90 cap, 1 Refill(s), Pharmacy: [facility] Start Date: 03/13/18 Stop Date: 09/09/18 Status: Ordered tamsulosin 0.4 mg oral capsule 0.4 mg=1 cap, PO, BID, # 180 cap, 1 Refill(s), Pharmacy: [facility] Start Date: 03/13/18 Stop Date: 09/09/18 Status: Ordered Results No data available for this section Immunizations Given and Recorded Vaccine Date Status Refusal Reason influenza virus vaccine, inactivated1 09/11/17 Given influenza virus vaccine, inactivated 09/05/16 Given influenza virus vaccine, inactivated 09/11/15 Given influenza virus vaccine, inactivated2 07/29/14 Given pneumococcal 23-valent vaccine3 02/04/14 Given 1Result Comment: Patient waited 15 min with no reaction. 2Result Comment: fluzone high dose [[id number]]. Migrated from OBS ; Data migrated from [employer] on 12/05/2015. 3Result Comment: pneumovax 23 [[id number]]. Migrated from OBS VIS: Pneumovax 23: 08-08-09 ; Data migrated from [employer] on 12/05/2015. Procedures Procedure Date Related Diagnosis Body Site Status Biopsy of gallbladder 2017 Completed Esophagogastroduodenoscopy1 12/06/15 Completed Colonoscopy2, 3 10/13/09 Completed 1large hiatal hernia, gastritis 2diverticulosis, repeat in 5-10 years 3per pt Social History Social History Type Response Substance Abuse Use: None. Exercise Exercise duration: 30. Exercise type: Walking. 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 Alcohol Never Smoking Status Former smoker; Type: Cigarettes; Concerns about tobacco use in household: No; Exposure to Tobacco Smoke None; Cigarette Smoking Last 365 Days No; Reg Smoking Cessation Counseling No; Tobacco use per day: 8; Stopped at age: 24; entered on: 03/13/18 Assessment and Plan No data available for this section
--- OUTSIDE RECORDS SUMMARY | 2019-02-20 14:55 | XMS REPORT | Summary of Care ---
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 2Result Comment: fluzone high dose [[id number]]. Migrated from OBS ; Data migrated from [employer] on 12/05/2015. 3Result Comment: pneumovax 23 [[id number]]. Migrated from OBS VIS: Pneumovax 23: 08-08-09 ; Data migrated from [employer] on 12/05/2015. Procedures Procedure Date Related Diagnosis Body Site Status Biopsy of gallbladder 2017 Completed Esophagogastroduodenoscopy1 12/06/15 Completed Colonoscopy2, 3 10/13/09 Completed 1large hiatal hernia, gastritis 2diverticulosis, repeat in 5-10 years 3per pt Social History Social History Type Response Substance Abuse Use: None. Exercise Exercise duration: 30. Exercise type: Walking. 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 Alcohol Never Smoking Status Former smoker; Type: Cigarettes; Concerns about tobacco use in household: No; Exposure to Tobacco Smoke None; Cigarette Smoking Last 365 Days No; Reg Smoking Cessation Counseling No; Tobacco use per day: 8; Stopped at age: 24; entered on: 03/13/18 Assessment and Plan No data available for this section
--- OUTSIDE RECORDS SUMMARY | 2019-02-20 14:55 | XMS REPORT | Summary of Care ---
Author Author [facility] Organization [facility] Address Unknown Phone Unavailable Encounter HQ Jason(FIN) [id number] Date(s): 01/19/19 - 01/19/19 [facility] [address] [place] [address]- Discharge Disposition: Home or Self Care Attending Physician: Melanie Burrows MD Vital Signs Most recent to 1 oldest [Reference Range]: Height 185.42 cm (01/19/19 3:54 PM) Temperature Oral 98.6 DegF [96.4-99.1 DegF] (01/19/19 3:54 PM) Blood Pressure 107/64 mmHg [90-140/60-90 mmHg] (01/19/19 3:54 PM) Respiratory Rate 16 BRMIN [14-20 BRMIN] (01/19/19 3:54 PM) Weight 109.205 kg (01/19/19 3:54 PM) Body Mass Index 31.76 m2 (01/19/19 3:54 PM) Problem List Condition Effective Dates Status Health [...] Idiopathic Resolved thrombocytopenic purpura (ITP)(Confirmed) Dyspepsia(Confirmed) 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) Major Active [...] Substance Reaction Severity Status NKDA Active Medications ferrous sulfate PO, 0 Refill(s) Start Date: 01/19/19 Status: Ordered levofloxacin 250 mg oral tablet 250 mg=1 tab, PO, Daily, Give only after dialysis, X 7 day, # 7 tab, 0 Refill(s) , Pharmacy: [facility] [id number] Start Date: 01/19/19 Stop Date: 01/26/19 Status: Ordered megestrol 40 mg/mL oral suspension 800 mg=20 mL, PO, Daily, # 600 mL, 0 Refill(s) Start Date: 01/19/19 Status: Ordered memantine 5 mg oral tablet 5 mg=1 tab, PO, Daily, 0 Refill(s) Start Date: 01/19/19 Status: Ordered pantoprazole 40 mg oral enteric coated tablet 40 mg=1 tab, PO, Daily, # 90 tab, 1 Refill(s) Start Date: 01/19/19 Status: Ordered QUEtiapine 25 mg oral tablet 25 mg=1 tab, PO, Q6H, PRN Agitation Start Date: 01/19/19 Status: Ordered sevelamer 800 mg oral tablet 1,600 mg=2 tab, PO, TID-Meals, # 540 tab, 0 Refill(s) Start Date: 01/19/19 Stop Date: 04/19/19 Status: Ordered Results No data available for [...] no reaction. 4Result Comment: fluzone high dose [[id number]]. Migrated from OBS ; Data migrated from [employer] on 12/05/2015. 5Result Comment: pneumovax 23 [cvx33]. Migrated from OBS VIS: Pneumovax 23: 08-08-09 ; Data migrated from [employer] on 12/05/2015. Procedures Procedure Date Related Diagnosis [...] type: Walking. 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 Alcohol Never Smoking Status Former smoker; Type: Cigarettes; Concerns about tobacco use in household: No; Exposure to Tobacco Smoke None; Cigarette Smoking Last 365 Days No; Reg Smoking Cessation Counseling No; Tobacco use per day: 8; Stopped at age: 24; entered on: 01/19/19 Assessment and Plan No data available for this section
--- OUTSIDE RECORDS SUMMARY | 2019-02-20 14:55 | XMS REPORT | Summary of Care ---
Author Author [facility] Organization [facility] Address Unknown Phone Unavailable Encounter CHRISTINA Gomez(SHAMA) [id number] Date(s): 04/02/16 - 04/04/16 [facility] [address] [place] [address]- Discharge Disposition: Home Attending Physician: Duong Farmer MD Admitting Physician: Duong Farmer MD Vital Signs 1 2 3 Most recent to oldest [Reference Range]: 185.42 cm (04/02/16 9:30 PM) 182.88 cm (04/02/16 3:52 PM) Height 97.6 DegF (04/04/16 8:34 AM) 97.3 DegF (04/04/16 3:22 AM) 97.4 DegF (04/04/16 12:08 AM) Temperature Oral [96.4-99.1 DegF] 115/70 mmHg (04/04/16 8:34 AM) 94/58 mmHg (04/04/16 3:22 AM) 90/49 mmHg (04/04/16 12:08 AM) Blood Pressure [90-140/60-90 mmHg] 18 BRMIN (04/04/16 8:34 AM) 18 BRMIN (04/04/16 3:22 AM) 18 BRMIN (04/04/16 12:08 AM) Respiratory Rate [14-20 BRMIN] 62 bpm (04/04/16 8:34 AM) 54 bpm *LOW* (04/04/16 3:22 AM) 60 bpm (04/04/16 12:08 AM) Peripheral Pulse Rate [60-100 bpm] 127.273 kg (04/02/16 9:30 PM) 127.273 kg (04/02/16 3:52 PM) Weight 37.02 m2 (04/02/16 9:30 PM) 38.05 m2 (04/02/16 3:52 PM) Body Mass Index Problem List Condition Effective Dates Status Health Status Informant Acute Resolved pancreatitis(Confirm ed) Anemia of chronic Active renal failure(Confirmed) Benign hypertension Active with chronic kidney disease, stage III(Confirmed) Benign prostatic 11/03/59 Active hyperplasia1 Body mass index 40+ 02/18/14 Active - severely obese2 Chronic kidney 12/19/14 Active disease, stage 33, 4 CPAP (continuous Active positive airway pressure) dependence(Confirmed ) Diabetes(Confirmed) Resolved Dizziness(Confirmed) Resolved DVT - Deep vein Resolved thrombosis of lower limb(Confirmed) Epigastric Resolved pain(Confirmed) Hearing loss5 04/20/14 Active Hypertension, Resolved essential(Confirmed) 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) Melena(Confirmed) Resolved Mixed Active hyperlipidemia6 Morbid Active obesity(Confirmed) Obesity7 02/18/14 Active Obstructive sleep 07/09/13 Active apnea syndrome8 Osteoarthritis(Confi Active rmed) Annual physical Resolved exam(Confirmed) Thrombocytopenia(Con Active firmed) Post-poliomyelitis Active syndrome9 Pulmonary [id number] 02/04/14 Resolved Screening for Resolved diabetic retinopathy(Confirme d) Screening for Resolved prostate cancer(Confirmed) Seasonal allergic 04/20/14 Active [id number] Right shoulder Active strain(Confirmed) Stenosis of right Active popliteal artery(Confirmed) Type 2 diabetes Active mellitus with hyperglycemia(Confir med) Type 2 diabetes, Active uncontrolled, with renal manifestation(Confir med) Unsteady Active gait(Confirmed) [id number] 07/09/13 Active 1Data migrated from [employer] on 04/01/15. 2Data migrated from [employer] on 04/01/15. 3Data migrated from [employer] on 05/10/15. 4Data migrated from [employer] on 04/04/15. 5Data migrated from [employer] on 04/01/15. 6Data migrated from [employer] on 04/01/15. 7Data migrated from [employer] on 04/01/15. 8Data migrated from [employer] on 04/01/15. 9Data migrated from [employer] on 04/01/15. 10Data migrated from [employer] on 04/01/15. 11Data migrated from [employer] on 04/01/15. 12Data migrated from [employer] on 04/01/15. Allergies, Adverse Reactions, Alerts Substance Reaction Severity Status NKDA Active Medications acetaminophen 650 mg, 2 tab, Route: PO, Drug form: TAB, Q6H, Dosing Weight 127.273, kg, PRN Pa in 1-3/Temp > 99.5 F, Start date: 04/03/16 8:14:00 CDT, Duration: 30 day, Stop date: 05/03/16 8:13:00 CDT Notes: Do not exceed 4 gm/day. (Same as: Tylenol) Start Date: 04/03/16 Stop Date: 04/04/16 Status: Discontinued atorvastatin 20 mg, 2 tab, Route: PO, Drug form: TAB, Bedtime, Dosing Weight 127.273, kg, Sta rt date: 04/03/16 21:00:00 CDT, Duration: 30 day, Stop date: 05/02/16 21:00:00 C DT Notes: (Same As: Lipitor) Start Date: 04/03/16 Stop Date: 04/04/16 Status: Discontinued dexamethasone + Sodium Chloride 0.9% IV 50 mL 40 mg, 10 mL, Route: IV, Drug form: INJ, ONCE, Dosing Weight 127.273, kg, Start date: 04/02/16 19:51:00 CDT, Stop date: 04/02/16 19:51:00 CDT Notes: Concentration: 4mg/ml Start Date: 04/02/16 Stop Date: 04/02/16 Status: Completed dexamethasone + Sodium Chloride 0.9% IV 50 mL 40 mg, 10 mL, Route: IVPB, Drug form: INJ, Daily, Dosing Weight 127.273, kg, Sta rt date: 04/03/16 9:00:00 CDT, Duration: 3 day, Stop date: 04/05/16 9:00:00 CDT Start Date: 04/03/16 Stop Date: 04/04/16 Status: Discontinued Dextrose 50% Syringe 12.5 gm, 25 mL, Route: IVP, Drug Form: INJ, Dosing Weight 127.273, kg, PRN, PRN Blood Glucose Results, Start date: 04/03/16 12:41:00 CDT, Duration: 30 day, Stop date: 05/03/16 12:40:00 CDT Start Date: 04/03/16 Stop Date: 04/04/16 Status: Discontinued Dextrose 50% Syringe 25 gm, 50 mL, Route: IVP, Drug Form: INJ, Dosing Weight 127.273, kg, PRN, PRN Bl ood Glucose Results, Start date: 04/03/16 12:41:00 CDT, Duration: 30 day, Stop d ate: 05/03/16 12:40:00 CDT Start Date: 04/03/16 Stop Date: 04/04/16 Status: Discontinued Dextrose 50% Syringe 25 gm, 50 mL, Route: IVP, Drug Form: INJ, Dosing Weight 127.273, kg, PRN, PRN Bl ood Glucose Results, Start date: 04/03/16 8:13:00 CDT, Duration: 30 day, Stop da te: 05/03/16 8:12:00 CDT Start Date: 04/03/16 Stop Date: 04/03/16 Status: Discontinued Dextrose 50% Syringe 12.5 gm, 25 mL, Route: IVP, Drug Form: INJ, Dosing Weight 127.273, kg, PRN, PRN Blood Glucose Results, Start date: 04/03/16 8:13:00 CDT, Duration: 30 day, Stop date: 05/03/16 8:12:00 CDT Start Date: 04/03/16 Stop Date: 04/03/16 Status: Discontinued Dextrose 50% Syringe 25 gm, 50 mL, Route: IVP, Drug Form: INJ, Dosing Weight 127.273, kg, PRN, PRN Bl ood Glucose Results, Start date: 04/02/16 21:45:00 CDT, Duration: 30 day, Stop d ate: 05/02/16 21:44:00 CDT Start Date: 04/02/16 Stop Date: 04/03/16 Status: Discontinued Dextrose 50% Syringe 12.5 gm, 25 mL, Route: IVP, Drug Form: INJ, Dosing Weight 127.273, kg, PRN, PRN Blood Glucose Results, Start date: 04/02/16 21:45:00 CDT, Duration: 30 day, Stop date: 05/02/16 21:44:00 CDT Start Date: 04/02/16 Stop Date: 04/03/16 Status: Discontinued glucagon 1 mg, Route: IM, Drug form: PDR/INJ, PRN, Dosing Weight 127.273, kg, PRN Blood G lucose Results, Start date: 04/03/16 12:41:00 CDT, Duration: 30 day, Stop date: 05/03/16 12:40:00 CDT Start Date: 04/03/16 Stop Date: 04/04/16 Status: Discontinued glucagon 1 mg, Route: IM, Drug form: PDR/INJ, PRN, Dosing Weight 127.273, kg, PRN Blood G lucose Results, Start date: 04/03/16 8:13:00 CDT, Duration: 30 day, Stop date: 0 05/03/16 8:12:00 CDT Start Date: 04/03/16 Stop Date: 04/03/16 Status: Discontinued glucagon 1 mg, Route: IM, Drug form: PDR/INJ, PRN, Dosing Weight 127.273, kg, PRN Blood G lucose Results, Start date: 04/02/16 21:45:00 CDT, Duration: 30 day, Stop date: 05/02/16 21:44:00 CDT Start Date: 04/02/16 Stop Date: 04/03/16 Status: Discontinued hydrochlorothiazide 25 mg, 1 tab, Route: PO, Drug form: TAB, Daily, Dosing Weight 127.273, kg, Start date: 04/03/16 9:00:00 CDT, Duration: 30 day, Stop date: 05/02/16 9:00:00 CDT Notes: (Same as: Hydrodiuril) With food. Start Date: 04/03/16 Stop Date: 04/04/16 Status: Discontinued insulin aspart 4 unit, 0.04 mL, Route: SUB-Q, Drug form: SOLN, Bedtime, Dosing Weight 127.273, kg, PRN Blood Glucose Results, Start date: 04/03/16 12:41:00 CDT, Duration: 30 d ay, Stop date: 05/03/16 12:40:00 CDT Notes: Roll in palms of hands gently; Do not shake vigorously. (Same as: NovoLO G)"single patient use only"WASTE: F/P - Black; E - Municipal Trash Bin Stable f or 28 days at room temperature.Expires in days from Date Start Date: 04/03/16 Stop Date: 04/04/16 Status: Discontinued insulin aspart 3 unit, 0.03 mL, Route: SUB-Q, Drug form: SOLN, Bedtime, Dosing Weight 127.273, kg, PRN Blood Glucose Results, Start date: 04/03/16 12:41:00 CDT, Duration: 30 d ay, Stop date: 05/03/16 12:40:00 CDT Notes: Roll in palms of hands gently; Do not shake vigorously. (Same as: Jourdan Worthy)"single patient use only"WASTE: F/P - Black; E - Municipal Trash Bin Stable f or 28 days at room temperature.Expires in days from Date Start Date: 04/03/16 Stop Date: 04/04/16 Status: Discontinued insulin aspart 1 unit, 0.01 mL, Route: SUB-Q, Drug form: SOLN, Bedtime, Dosing Weight 127.273, kg, PRN Blood Glucose Results, Start date: 04/03/16 12:41:00 CDT, Duration: 30 d ay, Stop date: 05/03/16 12:40:00 CDT Notes: Roll in palms of hands gently; Do not shake vigorously. (Same as: Jourdan Worthy)"single patient use only"WASTE: F/P - Black; E - Municipal Trash Bin Stable f or 28 days at room temperature.Expires in days from Date Start Date: 04/03/16 Stop Date: 04/04/16 Status: Discontinued insulin aspart 15 unit, 0.15 mL, Route: SUB-Q, Drug form: SOLN, TID-Before Meals, Dosing Weight 127.273, kg, PRN Blood Glucose Results, Start date: 04/03/16 12:41:00 CDT, Dura tion: 30 day, Stop date: 05/03/16 12:40:00 CDT Notes: Roll in palms of hands gently; Do not shake vigorously. (Same as: Jourdan Worthy)"single patient use only"WASTE: F/P - Black; E - Municipal Trash Bin Stable f or 28 days at room temperature.Expires in days from Date Start Date: 04/03/16 Stop Date: 04/04/16 Status: Discontinued insulin aspart 2 unit, 0.02 mL, Route: SUB-Q, Drug form: SOLN, Bedtime, Dosing Weight 127.273, kg, PRN Blood Glucose Results, Start date: 04/03/16 12:41:00 CDT, Duration: 30 d ay, Stop date: 05/03/16 12:40:00 CDT Notes: Roll in palms of hands gently; Do not shake vigorously. (Same as: Jourdan Worthy)"single patient use only"WASTE: F/P - Black; E - Municipal Trash Bin Stable f or 28 days at room temperature.Expires in days from Date Start Date: 04/03/16 Stop Date: 04/04/16 Status: Discontinued insulin aspart 3 unit, 0.03 mL, Route: SUB-Q, Drug form: SOLN, TID-Before Meals, Dosing Weight 127.273, kg, PRN Blood Glucose Results, Start date: 04/03/16 12:41:00 CDT, Durat ion: 30 day, Stop date: 05/03/16 12:40:00 CDT Notes: Roll in palms of hands gently; Do not shake vigorously. (Same as: Jourdan Worthy)"single patient use only"WASTE: F/P - Black; E - Municipal Trash Bin Stable f or 28 days at room temperature.Expires in days from Date Start Date: 04/03/16 Stop Date: 04/04/16 Status: Discontinued insulin aspart 6 unit, 0.06 mL, Route: SUB-Q, Drug form: SOLN, TID-Before Meals, Dosing Weight 127.273, kg, PRN Blood Glucose Results, Start date: 04/03/16 12:41:00 CDT, Durat ion: 30 day, Stop date: 05/03/16 12:40:00 CDT Notes: Roll in palms of hands gently; Do not shake vigorously. (Same as: NovoJASIEL Worthy)"single patient use only"WASTE: F/P - Black; E - Municipal Trash Bin Stable f or 28 days at room temperature.Expires in days from Date Start Date: 04/03/16 Stop Date: 04/04/16 Status: Discontinued insulin aspart 9 unit, 0.09 mL, Route: SUB-Q, Drug form: SOLN, TID-Before Meals, Dosing Weight 127.273, kg, PRN Blood Glucose Results, Start date: 04/03/16 12:41:00 CDT, Durat ion: 30 day, Stop date: 05/03/16 12:40:00 CDT Notes: Roll in palms of hands gently; Do not shake vigorously. (Same as: Jourdan Worthy)"single patient use only"WASTE: F/P - Black; E - Municipal Trash Bin Stable f or 28 days at room temperature.Expires in days from Date Start Date: 04/03/16 Stop Date: 04/04/16 Status: Discontinued insulin aspart 12 unit, 0.12 mL, Route: SUB-Q, Drug form: SOLN, TID-Before Meals, Dosing Weight 127.273, kg, PRN Blood Glucose Results, Start date: 04/03/16 12:41:00 CDT, Dura tion: 30 day, Stop date: 05/03/16 12:40:00 CDT Notes: Roll in palms of hands gently; Do not shake vigorously. (Same as: Jourdan Worthy)"single patient use only"WASTE: F/P - Black; E - Municipal Trash Bin Stable f or 28 days at room temperature.Expires in days from Date Start Date: 04/03/16 Stop Date: 04/04/16 Status: Discontinued insulin aspart 3 unit, 0.03 mL, Route: SUB-Q, Drug form: SOLN, Bedtime, Dosing Weight 127.273, kg, PRN Blood Glucose Results, Start date: 04/03/16 8:13:00 CDT, Duration: 30 da y, Stop date: 05/03/16 8:12:00 CDT Notes: Roll in palms of hands gently; Do not shake vigorously. (Same as: Jourdan Worthy)"single patient use only"WASTE: F/P - Black; E - Municipal Trash Bin Stable f or 28 days at room temperature.Expires in days from Date Start Date: 04/03/16 Stop Date: 04/03/16 Status: Discontinued insulin aspart 2 unit, 0.02 mL, Route: SUB-Q, Drug form: SOLN, Bedtime, Dosing Weight 127.273, kg, PRN Blood Glucose Results, Start date: 04/03/16 8:13:00 CDT, Duration: 30 da y, Stop date: 05/03/16 8:12:00 CDT Notes: Roll in palms of hands gently; Do not shake vigorously. (Same as: Jourdan Worthy)"single patient use only"WASTE: F/P - Black; E - Municipal Trash Bin Stable f or 28 days at room temperature.Expires in days from Date Start Date: 04/03/16 Stop Date: 04/03/16 Status: Discontinued insulin aspart 1 unit, 0.01 mL, Route: SUB-Q, Drug form: SOLN, Bedtime, Dosing Weight 127.273, kg, PRN Blood Glucose Results, Start date: 04/03/16 8:13:00 CDT, Duration: 30 da y, Stop date: 05/03/16 8:12:00 CDT Notes: Roll in palms of hands gently; Do not shake vigorously. (Same as: Jourdan Worthy)"single patient use only"WASTE: F/P - Black; E - Municipal Trash Bin Stable f or 28 days at room temperature.Expires in days from Date Start Date: 04/03/16 Stop Date: 04/03/16 Status: Discontinued insulin aspart 10 unit, 0.1 mL, Route: SUB-Q, Drug form: SOLN, TID-Before Meals, Dosing Weight 127.273, kg, PRN Blood Glucose Results, Start date: 04/03/16 8:13:00 CDT, Durati on: 30 day, Stop date: 05/03/16 8:12:00 CDT Notes: Roll in palms of hands gently; Do not shake vigorously. (Same as: Jourdan Worthy)"single patient use only"WASTE: F/P - Black; E - Municipal Trash Bin Stable f or 28 days at room temperature.Expires in days from Date Start Date: 04/03/16 Stop Date: 04/03/16 Status: Discontinued insulin aspart 4 unit, 0.04 mL, Route: SUB-Q, Drug form: SOLN, Bedtime, Dosing Weight 127.273, kg, PRN Blood Glucose Results, Start date: 04/03/16 8:13:00 CDT, Duration: 30 da y, Stop date: 05/03/16 8:12:00 CDT Notes: Roll in palms of hands gently; Do not shake vigorously. (Same as: Jourdan Worthy)"single patient use only"WASTE: F/P - Black; E - Municipal Trash Bin Stable f or 28 days at room temperature.Expires in days from Date Start Date: 04/03/16 Stop Date: 04/03/16 Status: Discontinued insulin aspart 8 unit, 0.08 mL, Route: SUB-Q, Drug form: SOLN, TID-Before Meals, Dosing Weight 127.273, kg, PRN Blood Glucose Results, Start date: 04/03/16 8:13:00 CDT, Durati on: 30 day, Stop date: 05/03/16 8:12:00 CDT Notes: Roll in palms of hands gently; Do not shake vigorously. (Same as: Jourdan Worthy)"single patient use only"WASTE: F/P - Black; E - Municipal Trash Bin Stable f or 28 days at room temperature.Expires in days from Date Start Date: 04/03/16 Stop Date: 04/03/16 Status: Discontinued insulin aspart 6 unit, 0.06 mL, Route: SUB-Q, Drug form: SOLN, TID-Before Meals, Dosing Weight 127.273, kg, PRN Blood Glucose Results, Start date: 04/03/16 8:13:00 CDT, Durati on: 30 day, Stop date: 05/03/16 8:12:00 CDT Notes: Roll in palms of hands gently; Do not shake vigorously. (Same as: Jourdan Worthy)"single patient use only"WASTE: F/P - Black; E - Municipal Trash Bin Stable f or 28 days at room temperature.Expires in days from Date Start Date: 04/03/16 Stop Date: 04/03/16 Status: Discontinued insulin aspart 2 unit, 0.02 mL, Route: SUB-Q, Drug form: SOLN, TID-Before Meals, Dosing Weight 127.273, kg, PRN Blood Glucose Results, Start date: 04/03/16 8:13:00 CDT, Durati on: 30 day, Stop date: 05/03/16 8:12:00 CDT Notes: Roll in palms of hands gently; Do not shake vigorously. (Same as: Jourdan Worthy)"single patient use only"WASTE: F/P - Black; E - Municipal Trash Bin Stable f or 28 days at room temperature.Expires in days from Date Start Date: 04/03/16 Stop Date: 04/03/16 Status: Discontinued insulin aspart 4 unit, 0.04 mL, Route: SUB-Q, Drug form: SOLN, TID-Before Meals, Dosing Weight 127.273, kg, PRN Blood Glucose Results, Start date: 04/03/16 8:13:00 CDT, Durati on: 30 day, Stop date: 05/03/16 8:12:00 CDT Notes: Roll in palms of hands gently; Do not shake vigorously. (Same as: Jourdan Worthy)"single patient use only"WASTE: F/P - Black; E - Municipal Trash Bin Stable f or 28 days at room temperature.Expires in days from Date Start Date: 04/03/16 Stop Date: 04/03/16 Status: Discontinued insulin aspart 1 unit, 0.01 mL, Route: SUB-Q, Drug form: SOLN, TID-Before Meals, Dosing Weight 127.273, kg, PRN Blood Glucose Results, Start date: 04/02/16 21:45:00 CDT, Durat ion: 30 day, Stop date: 05/02/16 21:44:00 CDT Notes: Roll in palms of hands gently; Do not shake vigorously. (Same as: Jourdan Worthy)"single patient use only"WASTE: F/P - Black; E - Municipal Trash Bin Stable f or 28 days at room temperature.Expires in days from Date Start Date: 04/02/16 Stop Date: 04/03/16 Status: Discontinued insulin aspart 2 unit, 0.02 mL, Route: SUB-Q, Drug form: SOLN, TID-Before Meals, Dosing Weight 127.273, kg, PRN Blood Glucose Results, Start date: 04/02/16 21:45:00 CDT, Durat ion: 30 day, Stop date: 05/02/16 21:44:00 CDT Notes: Roll in palms of hands gently; Do not shake vigorously. (Same as: Jourdan Worthy)"single patient use only"WASTE: F/P - Black; E - Municipal Trash Bin Stable f or 28 days at room temperature.Expires in days from Date Start Date: 04/02/16 Stop Date: 04/03/16 Status: Discontinued insulin aspart 4 unit, 0.04 mL, Route: SUB-Q, Drug form: SOLN, TID-Before Meals, Dosing Weight 127.273, kg, PRN Blood Glucose Results, Start date: 04/02/16 21:45:00 CDT, Durat ion: 30 day, Stop date: 05/02/16 21:44:00 CDT Notes: Roll in palms of hands gently; Do not shake vigorously. (Same as: Jourdan Worthy)"single patient use only"WASTE: F/P - Black; E - Municipal Trash Bin Stable f or 28 days at room temperature.Expires in days from Date Start Date: 04/02/16 Stop Date: 04/03/16 Status: Discontinued insulin aspart 3 unit, 0.03 mL, Route: SUB-Q, Drug form: SOLN, TID-Before Meals, Dosing Weight 127.273, kg, PRN Blood Glucose Results, Start date: 04/02/16 21:45:00 CDT, Durat ion: 30 day, Stop date: 05/02/16 21:44:00 CDT Notes: Roll in palms of hands gently; Do not shake vigorously. (Same as: Jourdan Worthy)"single patient use only"WASTE: F/P - Black; E - Municipal Trash Bin Stable f or 28 days at room temperature.Expires in days from Date Start Date: 04/02/16 Stop Date: 04/03/16 Status: Discontinued insulin aspart 5 unit, 0.05 mL, Route: SUB-Q, Drug form: SOLN, TID-Before Meals, Dosing Weight 127.273, kg, PRN Blood Glucose Results, Start date: 04/02/16 21:45:00 CDT, Durat ion: 30 day, Stop date: 05/02/16 21:44:00 CDT Notes: Roll in palms of hands gently; Do not shake vigorously. (Same as: Jourdan Worthy)"single patient use only"WASTE: F/P - Black; E - Municipal Trash Bin Stable f or 28 days at room temperature.Expires in days from Date Start Date: 04/02/16 Stop Date: 04/03/16 Status: Discontinued lisinopril 10 mg, 1 tab, Route: PO, Drug form: TAB, Daily, Dosing Weight 127.273, kg, Prior ity: STAT, Start date: 04/02/16 19:40:00 CDT, Duration: 30 day, Stop date: 05/02 9:00:00 CDT Notes: (Same as: Prinivil, Zestril) Start Date: 04/02/16 Stop Date: 04/03/16 Status: Discontinued lisinopril 40 mg, 2 tab, Route: PO, Drug form: TAB, BID, Dosing Weight 127.273, kg, Start d ate: 04/03/16 9:00:00 CDT, Duration: 30 day, Stop date: 05/02/16 21:00:00 CDT Notes: (Same as: Prinivil, Zestril) Start Date: 04/03/16 Stop Date: 04/04/16 Status: Discontinued magnesium sulfate 2 gm, 50 mL, Route: IVPB, Drug form: INJ, Q2H, Dosing Weight 127.273, kg, Total dose=4 gm, Start date: 04/03/16 12:00:00 CDT, Duration: 2 doses or times, Stop d ate: 04/03/16 14:00:00 CDT Notes: WASTE: F/P - Sink; E - Municipal Trash Bin Start Date: 04/03/16 Stop Date: 04/03/16 Status: Completed meclizine 25 mg, 1 tab, Route: PO, Drug form: TAB, TID, Dosing Weight 127.273, kg, PRN Darlyn santa, Start date: 04/03/16 8:11:00 CDT, Duration: 30 day, Stop date: 05/03/16 8:10:00 CDT Notes: (Same as: Antivert) Start Date: 04/03/16 Stop Date: 04/04/16 Status: Discontinued metFORMIN 500 mg, 1 tab, Route: PO, Drug form: TAB, BID, Dosing Weight 127.273, kg, Start date: 04/03/16 9:00:00 CDT, Duration: 30 day, Stop date: 05/02/16 17:00:00 CDT Notes: (Same as: Glucophage) Take with meal Start Date: 04/03/16 Stop Date: 04/03/16 Status: Canceled metFORMIN 1000 mg oral tablet 1,000 mg, 2 tab, Route: PO, Drug form: TAB, BID, Dosing Weight 127.273, kg, Star t date: 04/03/16 9:00:00 CDT, Duration: 30 day, Stop date: 05/02/16 17:00:00 CDT Notes: (Same as: Glucophage) Take with meal Start Date: 04/03/16 Stop Date: 04/04/16 Status: Discontinued mupirocin topical 2% ointment 1 appl, Route: TOP, BID, Drug form: OINT, Start date: 04/03/16 9:00:00 CDT, Dura tion: 30 day, Stop date: 05/02/16 17:00:00 CDT Start Date: 04/03/16 Stop Date: 04/04/16 Status: Discontinued NovoLOG Mix 70/30 FlexPen 55 unit, 0.55 mL, Route: SUB-Q, Drug form: INJ, BID, Dosing Weight 127.273, kg, Start date: 04/03/16 9:00:00 CDT, Duration: 30 day, Stop date: 05/02/16 17:00:00 CDT Notes: Roll in palms of hands gently; Do not shake vigorously. (Same as: NovoLO G Mix)"single patient use only"WASTE: F/P - Black; E - Municipal Trash Bin Stab le for 14 days at room temperatureExpires in days from Date Start Date: 04/03/16 Stop Date: 04/04/16 Status: Discontinued omeprazole 40 mg, Route: PO, Drug form: DRC, Daily, Dosing Weight 127.273, kg, Start date: 04/03/16 9:00:00 CDT, Duration: 30 day, Stop date: 05/02/16 9:00:00 CDT Start Date: 04/03/16 Stop Date: 04/03/16 Status: Deleted ondansetron 4 mg, 2 mL, Route: IVP, Drug form: INJ, Q6H, Dosing Weight 127.273, kg, PRN Naus ea & Vomiting, Start date: 04/02/16 21:44:00 CDT, Duration: 30 day, Stop date: 05/02/16 21:43:00 CDT Notes: (Same as: Jayy) MEDICATION WASTE Product Size: 4 mgProduct Was anya: ___ mg Start Date: 04/02/16 Stop Date: 04/04/16 Status: Discontinued potassium phosphate + Sodium Chloride 0.9% IV 250 mL 15 mmol, 5 mL, Route: IVPB, ONCE, Dosing Weight 127.273, kg, Start date: 6 10:10:00 CDT, Stop date: 04/03/16 10:10:00 CDT Notes: (Same as: K Phosphate.) 1 mMol phoshate has 1.47 mEq potassium Infuse o celio 4 hours Start Date: 04/03/16 Stop Date: 04/03/16 Status: Completed prednisoLONE 15 mg/5 mL oral syrup 40 mg, 13.33 mL, Route: PO, Drug form: SYRP, Daily, Dosing Weight 127.273, kg, S tart date: 04/04/16 9:00:00 CDT, Duration: 30 day, Stop date: 05/03/16 9:00:00 C DT Notes: (Same as: Prelone) With food. Start Date: 04/04/16 Stop Date: 04/04/16 Status: Discontinued predniSONE 20 mg oral tablet See Special Instructions, PO, Daily, 12 day regimen: Days 1-4 - 40 mg (2 tabs) daily Days 5-8 - 20 mg (1 tab) daily Days 9-12 - 10 mg (1/2 tab) daily, X 12 d ay, # 12 tab, 0 Refill(s) Start Date: 04/04/16 Stop Date: 04/16/16 Status: Ordered Protonix 40 mg, 1 tab, Route: PO, Drug form: ECTAB, Before Dinner, Start date: 04/03/16 1 6:30:00 CDT, Duration: 30 day, Stop date: 05/02/16 16:30:00 CDT Notes: Tablet should not be chewed or crushed.(Same as: Protonix) Start Date: 04/03/16 Stop Date: 04/04/16 Status: Discontinued Saline Flush 0.9% 10 ml, Route: IVP, Drug Form: INJ, Dosing Weight 127.273, kg, PRN, PRN Line Flus h, Start date: 04/02/16 21:44:00 CDT, Duration: 30 day, Stop date: 05/02/16 21:4 3:00 CDT Notes: (Same as: BD Posiflush) Start Date: 04/02/16 Stop Date: 04/04/16 Status: Discontinued Sodium Chloride 0.9% IV 1,000 mL 1,000 mL, Rate: 75 ml/hr, Infuse over: 13.3 hr, Route: IV, Dosing Weight 127.273 kg, Total Volume: 1,000, Start date: 04/02/16 21:44:00 CDT, Duration: 30 day, S top date: 05/02/16 21:43:00 CDT Start Date: 04/02/16 Stop Date: 04/04/16 Status: Discontinued tamsulosin 0.4 mg, 1 cap, Route: PO, Drug form: CAP, Daily, Dosing Weight 127.273, kg, Star t date: 04/03/16 9:00:00 CDT, Duration: 30 day, Stop date: 05/02/16 9:00:00 CDT Notes: (Same As: Flomax) "Do Not Crush" Start Date: 04/03/16 Stop Date: 04/04/16 Status: Discontinued tramadol 50 mg oral tablet 50 mg, 1 tab, Route: PO, Drug form: TAB, Q6H, Dosing Weight 127.273, kg, PRN Yash n Score 4-6, Start date: 04/03/16 8:14:00 CDT, Duration: 30 day, Stop date: 11/18 8:13:00 CDT Notes: Not to exceed 400mg/day. (Same As: Ultram) Start Date: 04/03/16 Stop Date: 04/04/16 Status: Discontinued Results ELECTROLYTES 1 2 3 Most recent to oldest [Reference Range]: 135 mEq/L (04/04/16 5:37 AM) 137 mEq/L (04/03/16 9:13 AM) 140 mEq/L (04/02/16 5:15 PM) Sodium Lvl [135-145 mEq/L] 4.3 mEq/L (04/04/16 5:37 AM) 4.6 mEq/L (04/03/16 9:13 AM) 3.7 mEq/L (04/02/16 5:15 PM) Potassium Lvl [3.5-5.1 mEq/L] 102 mEq/L (04/04/16 5:37 AM) 102 mEq/L (04/03/16 9:13 AM) 104 mEq/L (04/02/16 5:15 PM) Chloride Lvl [95-109 mEq/L] 22 mEq/L *LOW* (04/04/16 5:37 AM) 24 mEq/L (04/03/16 9:13 AM) 24 mEq/L (04/02/16 5:15 PM) CO2 [24-32 mEq/L] 15.3 mEq/L (04/04/16 5:37 AM) 15.6 mEq/L (04/03/16 9:13 AM) 15.7 mEq/L (04/02/16 5:15 PM) AGAP [10.0-20.0 mEq/L] CHEM PANEL 1 2 3 Most recent to oldest [Reference Range]: 1.40 mg/dL (04/04/16 5:37 AM) 1.54 mg/dL *HI* (04/03/16 9:13 AM) 1.49 mg/dL *HI* (04/02/16 5:15 PM) Creatinine Lvl [0.50-1.40 mg/dL] 58 mL/min/1.73m2 1 *NA* (04/04/16 5:37 AM) 51 mL/min/1.73m2 2 *NA* (04/03/16 9:13 AM) 53 mL/min/1.73m2 3 *NA* (04/02/16 5:15 PM) eGFR 31 mg/dL *HI* (04/04/16 5:37 AM) 28 mg/dL *HI* (04/03/16 9:13 AM) 26 mg/dL *HI* (04/02/16 5:15 PM) BUN [7-22 mg/dL] 17 (04/02/16 5:15 PM) B/C Ratio [6-25] 280 mg/dL *HI* (04/04/16 5:37 AM) 342 mg/dL *HI* (04/03/16 9:13 AM) 128 mg/dL *HI* (04/02/16 5:15 PM) Glucose Lvl [70-99 mg/dL] 7.5 g/dL (04/02/16 5:15 PM) Total Protein [6.4-8.4 g/dL] 3.8 g/dL (04/02/16 5:15 PM) Albumin Lvl [3.5-5.0 g/dL] 3.7 g/dL (04/02/16 5:15 PM) Globulin [2.0-4.0 g/dL] 1.0 (04/02/16 5:15 PM) A/G Ratio [0.7-1.6] 8.6 mg/dL (04/04/16 5:37 AM) 9.2 mg/dL (04/03/16 9:13 AM) 9.3 mg/dL (04/02/16 5:15 PM) Calcium Lvl [8.5-10.5 mg/dL] 2.8 mg/dL (04/04/16 5:37 AM) 1.8 mg/dL *LOW* (04/03/16 9:13 AM) Phosphorus [2.5-4.5 mg/dL] 2.4 mg/dL (04/04/16 5:37 AM) 1.6 mg/dL *LOW* (04/03/16 9:13 AM) Magnesium Lvl [1.8-2.4 mg/dL] 33 unit/L (04/02/16 5:15 PM) ALT [0-65 unit/L] 19 unit/L (04/02/16 5:15 PM) AST [0-37 unit/L] 79 unit/L (04/02/16 5:15 PM) Alk Phos [39-136 unit/L] 0.6 mg/dL (04/02/16 5:15 PM) Bili Total [0.2-1.3 mg/dL] 1Result Comment: The eGFR is calculated using the [...] from the National Kidney Disease Education Program ( NKDEP) which additionally recommends that when the eGFR is used in patients with extremes of body mass index for purposes of drug dosing, the eGFR should be mul tiplied by the estimated BMI. 2Result Comment: The eGFR is calculated using the [...] from the National Kidney Disease Education Program ( NKDEP) which additionally recommends that when the eGFR is used in patients with extremes of body mass index for purposes of drug dosing, the eGFR should be mul tiplied by the estimated BMI. 3Result Comment: The eGFR is calculated using the [...] from the National Kidney Disease Education Program ( NKDEP) which additionally recommends that when the eGFR is used in patients with extremes of body mass index for purposes of drug dosing, the eGFR should be mul tiplied by the estimated BMI. HEMATOLOGY 1 2 3 Most recent to oldest [Reference Range]: 13.7 K/CMM *HI* (04/04/16 5:37 AM) 6.3 K/CMM (04/03/16 9:13 AM) 6.7 K/CMM (04/02/16 5:15 PM) WBC [3.7-10.4 K/CMM] 4.39 M/CMM *LOW* (04/04/16 5:37 AM) 4.77 M/CMM (04/03/16 9:13 AM) 4.80 M/CMM (04/02/16 5:15 PM) RBC [4.70-6.10 M/CMM] 13.0 g/dL *LOW* (04/04/16 5:37 AM) 14.3 g/dL (04/03/16 9:13 AM) 13.8 g/dL *LOW* (04/03/16 6:36 AM) Hgb [14.0-18.0 g/dL] 40.6 % *LOW* (04/04/16 5:37 AM) 44.4 % (04/03/16 9:13 AM) 42.2 % (04/03/16 6:36 AM) Hct [42.0-54.0 %] 92.5 fL (04/04/16 5:37 AM) 93.0 fL (04/03/16 9:13 AM) 91.8 fL (04/02/16 5:15 PM) MCV [80.0-94.0 fL] 29.6 pg (04/04/16 5:37 AM) 30.0 pg (04/03/16 9:13 AM) 29.7 pg (04/02/16 5:15 PM) MCH [27.0-31.0 pg] 32.0 g/dL (04/04/16 5:37 AM) 32.3 g/dL (04/03/16 9:13 AM) 32.4 g/dL (04/02/16 5:15 PM) MCHC [32.0-36.0 g/dL] 13.8 % (04/04/16 5:37 AM) 14.1 % (04/03/16 9:13 AM) 14.2 % (04/02/16 5:15 PM) RDW [11.5-14.5 %] 40 K/CMM *LOW* (04/04/16 5:37 AM) 19 K/CMM 1 *CRIT* (04/03/16 9:13 AM) 13 K/CMM 2 *CRIT* (04/02/16 5:15 PM) Platelet [133-450 K/CMM] 11.6 fL *HI* (04/04/16 5:37 AM) 10.0 fL (04/03/16 9:13 AM) 9.6 fL (04/02/16 5:15 PM) MPV [7.4-10.4 fL] 94.9 % *HI* (04/04/16 5:37 AM) 93.6 % *HI* (04/03/16 9:13 AM) 71.3 % (04/02/16 5:15 PM) Segs [45.0-75.0 %] 3.9 % *LOW* (04/04/16 5:37 AM) 5.5 % *LOW* (04/03/16 9:13 AM) 17.6 % *LOW* (04/02/16 5:15 PM) Lymphocytes [20.0-40.0 %] 1.2 % *LOW* (04/04/16 5:37 AM) 0.6 % *LOW* (04/03/16 9:13 AM) 6.9 % (04/02/16 5:15 PM) Monocytes [2.0-12.0 %] 0.1 % (04/03/16 9:13 AM) 3.4 % (04/02/16 5:15 PM) Eosinophils [0.0-4.0 %] 0.2 % (04/03/16 9:13 AM) 0.8 % (04/02/16 5:15 PM) Basophils [0.0-1.0 %] 13.0 K/CMM *HI* (04/04/16 5:37 AM) 5.9 K/CMM (04/03/16 9:13 AM) 4.8 K/CMM (04/02/16 5:15 PM) Segs-Bands # [1.5-8.1 K/CMM] 0.5 K/CMM *LOW* (04/04/16 5:37 AM) 0.3 K/CMM *LOW* (04/03/16 9:13 AM) 1.2 K/CMM (04/02/16 5:15 PM) Lymphocytes # [1.0-5.5 K/CMM] 0.2 K/CMM (04/04/16 5:37 AM) 0.5 K/CMM (04/02/16 5:15 PM) Monocytes # [0.0-0.8 K/CMM] 0.2 K/CMM (04/02/16 5:15 PM) Eosinophils # [0.0-0.5 K/CMM] 0.1 K/CMM (04/02/16 5:15 PM) Basophils # [0.0-0.2 K/CMM] Normal (04/02/16 5:15 PM) RBC Morph Normal (04/02/16 5:15 PM) Plt Morph 13.2 seconds (04/02/16 5:15 PM) PT [12.0-14.7 seconds] 0.97 (04/02/16 5:15 PM) INR [0.85-1.17] 25.6 seconds (04/02/16 5:15 PM) PTT [22.9-35.8 seconds] 1Result Comment: Critical Result(s) called to Ingris Francisco at 04/03/2016 09:51 by tb. Read back OK. 2Result Comment: Critical Result(s) called to Tesha Montenegro at 04/02/2016 17:47 byVA. Read back OK. Immunizations Vaccine Date Refusal Reason influenza virus vaccine, inactivated 09/11/15 influenza virus vaccine, inactivated1 07/29/14 pneumococcal 23-valent vaccine2 02/04/14 1Result Comment: fluzone high dose [[id number]]. Migrated from OBS ; Data migrated from [employer] on 12/05/2015. 2Result Comment: pneumovax 23 [cvx33]. Migrated from OBS VIS: Pneumovax 23: 08-08-09 ; Data migrated from [employer] on 12/05/2015. Procedures Procedure Date Related Diagnosis Body Site Esophagogastroduodenoscopy1 12/06/15 Colonoscopy2, 3 10/13/09 1large hiatal hernia, gastritis 2diverticulosis, repeat in 5-10 years 3per pt Social History Social History Type Response Substance Abuse Use: None. Exercise Exercise duration: 30. Exercise type: Walking. 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 Alcohol Never, Previous treatment: None. Alcohol use interferes with work or home: No. Drinks more than intended: No. Others hurt by drinking: No. Ready to change: No. Household alcohol concerns: No. Smoking Status Former smoker; Type: Cigarettes; Tobacco use per day: 8; Stopped at age: 24; Concerns about tobacco use in household: No; Exposure to Tobacco Smoke None; Cigarette Smoking Last 365 Days No; Reg Smoking Cessation Counseling No Assessment and Plan No data available for this section
--- OUTSIDE RECORDS SUMMARY | 2019-02-20 14:55 | XMS REPORT | Summary of Care ---
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 2Result Comment: fluzone high dose [[id number]]. Migrated from OBS ; Data migrated from [employer] on 12/05/2015. 3Result Comment: pneumovax 23 [cvx33]. Migrated from OBS VIS: Pneumovax 23: 08-08-09 ; Data migrated from [employer] on 12/05/2015. Procedures Procedure Date Related Diagnosis Body Site Status Transurethral resection of bladder tumor 11/21/17 Completed Influenza vaccination 09/11/17 Completed Esophagogastroduodenoscopy1 12/06/15 Completed Pneumococcal vaccination2 02/04/14 Completed Colonoscopy3, 4 10/13/09 Completed 1large hiatal hernia, gastritis 2Pneumovax 3diverticulosis, repeat in 5-10 years 4per pt Social History Social History Type Response Substance Abuse Use: None. Exercise Exercise duration: 30. Exercise type: Walking. 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 Alcohol Never Smoking Status Former smoker; Type: Cigarettes; Concerns about tobacco use in household: No; Exposure to Tobacco Smoke None; Cigarette Smoking Last 365 Days No; Reg Smoking Cessation Counseling No; Tobacco use per day: 8; Stopped at age: 24; entered on: 03/13/18 Assessment and Plan No data available for this section
--- OUTSIDE RECORDS SUMMARY | 2019-02-20 14:55 | XMS REPORT | Summary of Care ---
Author Author [facility] [place] Organization [facility] [place] Address Unknown Phone Unavailable Encounter CHRISTINA Gomez(SHAMA) [id number] Date(s): 07/26/16 - 07/26/16 [facility] [place] [address] [place] [phone] Discharge Disposition: Home or Self Care Attending [...] kidney 12/19/14 Active disease, stage 33, 4 Chronic pain of Active right upper extremity(Confirmed) CPAP (continuous Active positive airway pressure) dependence(Confirmed ) Dizziness(Confirmed) Resolved DVT - Deep vein Resolved thrombosis of lower limb(Confirmed) Epigastric Resolved pain(Confirmed) Hearing loss5 04/20/14 Active Idiopathic Active thrombocytopenic purpura (ITP)(Confirmed) penitentiary current Active use of insulin(Confirmed) Melena(Confirmed) Resolved Mixed Active hyperlipidemia6 Morbid Active obesity(Confirmed) Obesity7 02/18/14 Active Obstructive sleep 07/09/13 Active apnea syndrome8 Osteoarthritis(Confi Active rmed) Annual physical Resolved exam(Confirmed) Post-poliomyelitis Active syndrome9 Pulmonary [id number] 02/04/14 Resolved Screening for Resolved diabetic retinopathy(Confirme d) Screening for Resolved prostate cancer(Confirmed) Seasonal allergic 04/20/14 Active [id number] Right shoulder Active strain(Confirmed) Stenosis of right Active popliteal artery(Confirmed) Strain of right Active upper arm(Confirmed) Type 2 diabetes Active mellitus with hyperglycemia(Confir med) Type II diabetes Active mellitus with stage 3 chronic kidney disease(Confirmed) Type 2 diabetes, Active uncontrolled, with renal manifestation(Confir med) Unsteady Active gait(Confirmed) [id number] 07/09/13 Active 1Data migrated from [employer] [...] Date Status Refusal Reason influenza virus vaccine, inactivated 09/11/15 Given influenza virus vaccine, inactivated1 07/29/14 Given pneumococcal 23-valent vaccine2 02/04/14 Given 1Result Comment: fluzone high dose [[id number]]. Migrated from OBS ; Data migrated from [employer] on 12/05/2015. 2Result Comment: pneumovax 23 [cvx33]. [...] type: Walking. 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 Alcohol Never Smoking Status Former smoker; Type: Cigarettes; Tobacco use per day: 8; Stopped at age: 24; Concerns about tobacco use in household: No; Exposure to Tobacco Smoke None; Cigarette Smoking Last 365 Days No; Reg Smoking Cessation Counseling No Assessment and Plan No data available for this section
--- OUTSIDE RECORDS SUMMARY | 2019-02-20 14:55 | XMS REPORT | Summary of Care ---
Author Author [facility] Organization [facility] Address Unknown Phone Unavailable Encounter HQ Jason(FIN) [id number] Date(s): 02/12/19 - 02/13/19 [facility] [address] [place] [address]- Vital Signs No data available for this [...] Resolved ed) Idiopathic Resolved thrombocytopenic purpura (ITP)(Confirmed) [facility] current Active use of insulin(Confirmed) Major Active [...] for Active immunization(Confirm ed) 1Data migrated from [employer] on 04/01/15. 2Data migrated from [employer] [...] no reaction. 4Result Comment: fluzone high dose [feu095]. Migrated from OBS ; Data migrated from [employer] on 12/05/2015. 5Result Comment: pneumovax 23 [cvx33]. Migrated from OBS VIS: Pneumovax 23: 08-08-09 ; Data migrated from [employer] on 12/05/2015. Procedures Procedure Date Related Diagnosis [...] type: Walking. 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 Alcohol Never Smoking Status Former smoker; Type: Cigarettes; Concerns about tobacco use in household: No; Exposure to Tobacco Smoke None; Cigarette Smoking Last 365 Days No; Reg Smoking Cessation Counseling No; Tobacco use per day: 8; Stopped at age: 24; entered on: 01/19/19 Assessment and Plan No data available for this section
--- OUTSIDE RECORDS SUMMARY | 2019-02-20 14:55 | XMS REPORT | Summary of Care ---
Author Author [facility] Organization [facility] Address Unknown Phone Unavailable Encounter HQ Jason(FIN) [id number] Date(s): 03/13/18 - 03/13/18 [facility] 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(Confirmed) Melena(Confirmed) Resolved [...] Bedtime, # 90 tab, 1 Refill(s), Pharmacy: [facility] Start Date: 03/13/18 Status: Ordered hydrochlorothiazide 25 mg oral tablet 25 mg=1 tab, PO, Daily, # 90 tab, 1 Refill(s), Pharmacy: [facility] Start Date: 03/13/18 Status: Ordered lisinopril 40 mg oral tablet 40 mg=1 tab, PO, BID, # 180 tab, 1 Refill(s), Pharmacy: [facility] Start Date: 03/13/18 Status: Ordered metFORMIN 1000 mg oral tablet 1,000 mg=1 tab, PO, BID, # 180 tab, 1 Refill(s), Pharmacy: [facility] Start Date: 03/13/18 Stop Date: 09/09/18 Status: Ordered NovoFine Insulin Pen [place] 32G 6 mm=1/4 inch Patient injects insulin three times daily., MISC, TID, # 100 ea, 5 Refill(s) Start Date: 03/13/18 Status: Ordered omeprazole 40 mg oral delayed release capsule 40 mg=1 cap, PO, Daily, # 90 cap, 1 Refill(s), Pharmacy: [facility] Start Date: 03/13/18 Stop Date: 09/09/18 Status: Ordered tamsulosin 0.4 mg oral capsule 0.4 mg=1 cap, PO, BID, # 180 cap, 1 Refill(s), Pharmacy: [facility] Start Date: 03/13/18 Stop Date: 09/09/18 [...] no reaction. 2Result Comment: fluzone high dose [[id number]]. Migrated from OBS ; Data migrated from [employer] on 12/05/2015. 3Result Comment: pneumovax 23 [cvx33]. Migrated from OBS VIS: Pneumovax 23: 08-08-09 ; Data migrated from [employer] on 12/05/2015. Procedures Procedure Date Related Diagnosis Body Site Status Biopsy of gallbladder 2017 Completed Esophagogastroduodenoscopy1 12/06/15 Completed Colonoscopy2, 3 10/13/09 Completed 1large hiatal hernia, gastritis 2diverticulosis, repeat in 5-10 years 3per pt Social History Social History Type Response Substance Abuse Use: None. Exercise Exercise duration: 30. Exercise type: Walking. 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 Alcohol Never Smoking Status Former smoker; Type: Cigarettes; Concerns about tobacco use in household: No; Exposure to Tobacco Smoke None; Cigarette Smoking Last 365 Days No; Reg Smoking Cessation Counseling No; Tobacco use per day: 8; Stopped at age: 24; entered on: 03/13/18 Assessment and Plan No data available for this section
--- OUTSIDE RECORDS SUMMARY | 2019-02-20 14:55 | XMS REPORT | Summary of Care ---
Author Author [facility] [place] Organization [facility] [place] Address Unknown Phone Unavailable Encounter CHRISTINA Gomez(SHAMA) [id number] Date(s): 02/09/19 - 02/09/19 [facility] [place] [address] [place] [phone] Discharge Disposition: Home or Self Care Attending Physician: Melanie Burrows MD Referring Physician: Melanie Burrows MD Vital Signs No [...] Resolved ed) Idiopathic Resolved thrombocytopenic purpura (ITP)(Confirmed) [facility] current Active use of insulin(Confirmed) Major Active [...] no reaction. 4Result Comment: fluzone high dose [[id number]]. Migrated from OBS ; Data migrated from [employer] on 12/05/2015. 5Result Comment: pneumovax 23 [cvx33]. Migrated from OBS VIS: Pneumovax 23: 08-08-09 ; Data migrated from [employer] on 12/05/2015. Procedures Procedure Date Related Diagnosis [...] type: Walking. 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 Alcohol Never Smoking Status Former smoker; Type: Cigarettes; Concerns about tobacco use in household: No; Exposure to Tobacco Smoke None; Cigarette Smoking Last 365 Days No; Reg Smoking Cessation Counseling No; Tobacco use per day: 8; Stopped at age: 24; entered on: 01/19/19 Assessment and Plan No data available for this section
[2019-02-20] MEDS ORDERED: ALBUTEROL SULF 0.083% NEB SOLN 3 ML NEB NEB STA (14:57)
[2019-02-20] MEDS ORDERED: IPRATROPIUM BROMIDE 0.02% 2.5 ML NEB NEB STA (14:57)
--- NOTE | 2019-02-20 15:35 | NUR ---
RT NOTIFIED FOR BREATHING [place].
[2019-02-20 15:43] LABS: BASOPHILS % 0.1 % (0.0-1.0); EOSINOPHILS # (AUTO) 0.1 (0.0-0.4); EOSINOPHILS % 1.4 % (0.0-6.0); HEMATOCRIT 29.6 % (38.2-49.6); HEMOGLOBIN 9.2 g/dL (14.0-18.0); LYMPHOCYTES # (AUTO) 0.4 (1.0-3.2); LYMPHOCYTES % 5.1 % (18.0-39.1); MEAN CORPUSCULAR HEMOGLOBIN 32.3 pg (28-32); MEAN CORPUSCULAR HGB CONC 31.1 g/dL (31-35); MEAN CORPUSCULAR VOLUME 103.9 fL (81-99); MONOCYTES # (AUTO) 0.1 (0.2-0.8); MONOCYTES % 1.4 % (4.4-11.3); NEUTROPHILS # (AUTO) 7.3 (2.1-6.9); NEUTROPHILS % 91.2 % (38.7-80.0); PLATELET COUNT 78 x10e3/uL (140-360); RED BLOOD COUNT 2.85 x10e6/uL (4.3-5.7); RED CELL DISTRIBUTION WIDTH 20.7 % (11.7-14.4)
[2019-02-20 15:54] LABS: INR 1.01; PARTIAL THROMBOPLASTIN TIME 28.5 seconds (23.8-35.5); PROTHROMBIN TIME 13.8 seconds (11.9-14.5)
[2019-02-20 16:04] LABS: ALBUMIN/GLOBULIN RATIO 0.7 (0.8-2.0); ANION GAP 21.1 mmol/L (8-16); CALCIUM 9.6 mg/dL (8.4-10.2); CREATININE, SERUM 7.33 mg/dL (0.72-1.25); POTASSIUM 5.1 mmol/L (3.5-5.1)
[2019-02-20 16:09] LABS: CLARITY,URINE HAZY (CLEAR); COLOR,URINE YELLOW (YELLOW)
[2019-02-20 16:10] LABS: KETONES,URINE NEGATIVE (NEGATIVE); LEUKOCYTE ESTERASE ,URINE TRACE (NEGATIVE); NITRITE,URINE NEGATIVE (NEGATIVE); PROTEIN,URINE DIPSTICK 2+ (NEGATIVE); URINE UROBILINOGEN 0.2 mg/dL (0.2 - 1)
[2019-02-20 16:11] LABS: AMORPHOUS SEDIMENT,URINE MODERATE (FEW); BACTERIA,URINE MANY /HPF; BILIRUBIN,URINE NEGATIVE (NEGATIVE); EPITHELIAL CELLS,URINE MODERATE /LPF; RBC,URINE 0-5 /HPF (0-5)
[2019-02-20 16:11] LABS: CREATINE KINASE MB 1.9 ng/mL (0-5.0)
[2019-02-20 16:18] LABS: PLATELET ESTIMATE MODERATELY DECREASED
[2019-02-20 16:19] LABS: PLATELET MORPHOLOGY COMMENT NORMAL
--- NOTE | 2019-02-20 17:00 | Diagnostic Imaging Report ---
EXAMINATION: CHEST 2 VIEWS INDICATION: ^ORDER PLACED BY ^[id number] ^[id number] ^Y COMPARISON: CT abdomen and pelvis 12/31/2018 and chest radiograph 12/31/2018 FINDINGS: PA and lateral views TUBES and LINES: Right adjacent to hemodialysis catheter is unchanged. LUNGS: Lungs are well inflated. Unchanged bilateral interstitial edema. More focal airspace opacity in the right lower lobe corresponds to area of atelectasis on CT abdomen and pelvis. No new consolidations. PLEURA: No pleural effusion or pneumothorax. HEART AND MEDIASTINUM: The cardiomediastinal silhouette is unremarkable. BONES AND SOFT TISSUES: No acute osseous lesion. Soft tissues are unremarkable. UPPER ABDOMEN: No free air under the diaphragm. IMPRESSION: Persistent bilateral interstitial edema. Signed by: Dr. Katty Wharton M.D. on 02/20/2019 4:57 PM
[2019-02-20] MEDS ORDERED: ONDANSETRON HCL INJ 2MG/ML 2ML 2 MG/ML VIAL IV PRN (18:15)
[2019-02-20] MEDS ORDERED: MORPHINE SULFATE INJ 4 MG/ML INJ 1ML IV PRN (18:15)
[2019-02-20] MEDS ORDERED: DEXTROSE 50% SYRINGE 50 ML IV PRN (18:15)
[2019-02-20] MEDS: FAMOTIDINE 20 MG/2 ML VIAL IV SCH (18:27)
--- NOTE | 2019-02-20 19:38 | Diagnostic Imaging Report ---
CT chest without enhancement CPT code: 64847 INDICATION: Bladder cancer, pulmonary metastasis TECHNIQUE: Thin collimation axial images obtained from the thoracic inlet to the level of the diaphragm without intravenous contrast. Dose reduction techniques used: Automated exposure control, adjustment of the mAs and/or kVp according to patient size, standardized low-dose protocol, and/or iterative reconstruction technique. RADIATION DOSE: Total DLP: 620.9 mGy*cm Estimated effective dose: (DLP x 0.015 x size factor) mSv CTDIvol has been reviewed. It is below the limits set by the Radiation Protocol Committee (RPC). COMPARISON: CT abdomen/pelvis 12/31/2018. CHEST FINDINGS: Images are motion degraded. Lymph nodes: No enlarged axillary, supraclavicular, mediastinal, or hilar lymph nodes given the lack of intravenous contrast. Cardiophrenic lymph nodes measure up to 10 mm and are grossly stable. Thyroid: Normal in size without mass in the visualized parenchyma.. Mediastinum: Dual lumen central venous catheter terminates in the SVC. Moderate burden of coronary artery atherosclerosis. The heart is normal in size. No pericardial effusion. There is a small hiatal hernia with distal esophageal wall thickening suggestive of reflux. Lungs: Right: Diffuse hyperinflation with stable reticulation of the lung base. A discrete mass is not visible. Left: Diffuse hyperinflation. The infiltrate in the posterior lower lobe is no longer visualized. Ill-defined groundglass opacity in the anterior basal segment of the lower lobe has more distinct margins (image 94). A solid nodule in the posterior lower lobe measures 1.0 x 0.8 cm. This was not present on previous exam. A subtle round groundglass nodule in the superior segment of the lower lobe measures 6 mm (image 53). Punctate soft tissue nodules along the major fissure (images 52 and 62). Pleura: No pleural effusion or pleural based mass. ABDOMEN FINDINGS: Visualized portions of the liver, spleen, gallbladder, pancreas, adrenal glands, and kidneys are unremarkable. Bones: Degenerative changes of the spine. There is a punctate bone island and T7. Soft tissues: Bilateral gynecomastia. IMPRESSION: 1. Rounded soft tissue nodule in the posterior left lower lobe is concerning for metastasis. A subcentimeter groundglass nodule in the superior segment of the lower lobe bears watching on subsequent studies to confirm stability. 2. Groundglass opacity in the posterior left costophrenic angle is no longer visualized, likely infiltrate. A groundglass opacity in the anterior basal segment left lower lobe is more organized and should be monitored. 3. Tiny nodules along the major fissure bear watching on subsequent studies to exclude metastasis. 4. COPD. 5. Hiatal hernia and esophageal wall thickening suggestive of reflux. Signed by: Dr. Loren England MD on 02/20/2019 7:35 PM
[2019-02-20] MEDS ORDERED: Linzess (19:45)
[2019-02-20] MEDS ORDERED: NOVOLOG100 UNITS1 (19:57)
[2019-02-20] MEDS ORDERED: [UNRECOGNIZED DRUG - OTHER] PO (19:57)
[2019-02-20] MEDS ORDERED: DIALYVITE 3,001 EACH (19:57)
[2019-02-20] MEDS ORDERED: MIRTAZAPINE15 MG PO (19:57)
[2019-02-20] MEDS ORDERED: QUETIAPINE FUMA25 MG PO (19:57)
[2019-02-20] MEDS ORDERED: MEMANTINE (19:57)
[2019-02-20] MEDS ORDERED: THORAZINE25 MG PO (19:59)
[2019-02-20 20:00] VITALS: BP 166/76
[2019-02-20] MEDS: INSULIN LISPRO 100 UNIT/1 ML 3ML VIAL SQ SCH (21:00)
--- NOTE | 2019-02-20 21:10 | NUR ---
PATIENT REFUSED CPAP.
[2019-02-20 22:01] VITALS: BP 166/76
--- NOTE | 2019-02-20 23:40 | NUR ---
PATIENT REFUSED 2300 LABS
[2019-02-21] VITALS (8 sets, daily range): BP systolic 108–139; BP diastolic 51–64
[2019-02-21] MEDS: FAMOTIDINE 20 MG/2 ML VIAL IV SCH (05:52)
[2019-02-21 06:06] LABS: BASOPHILS % 0.2 % (0.0-1.0); EOSINOPHILS # (AUTO) 0.2 (0.0-0.4); EOSINOPHILS % 1.3 % (0.0-6.0); HEMATOCRIT 28.5 % (38.2-49.6); HEMOGLOBIN 8.9 g/dL (14.0-18.0); LYMPHOCYTES # (AUTO) 0.3 (1.0-3.2); LYMPHOCYTES % 2.2 % (18.0-39.1); MEAN CORPUSCULAR HEMOGLOBIN 32.1 pg (28-32); MEAN CORPUSCULAR HGB CONC 31.2 g/dL (31-35); MEAN CORPUSCULAR VOLUME 102.9 fL (81-99); MONOCYTES # (AUTO) 0.1 (0.2-0.8); MONOCYTES % 0.8 % (4.4-11.3); NEUTROPHILS # (AUTO) 12.3 (2.1-6.9); NEUTROPHILS % 94.6 % (38.7-80.0); PLATELET COUNT 82 x10e3/uL (140-360); RED BLOOD COUNT 2.77 x10e6/uL (4.3-5.7); RED CELL DISTRIBUTION WIDTH 20.9 % (11.7-14.4)
[2019-02-21 06:26] LABS: CREATINE KINASE MB 1.9 ng/mL (0-5.0)
--- NOTE | 2019-02-21 06:45 | NUR ---
Called Dr. Polanco for callback regarding fever and ct chest results. Awaiting call back.
[2019-02-21 06:53] LABS: ALBUMIN 2.6 g/dL (3.5-5.0); ALBUMIN/GLOBULIN RATIO 0.7 (0.8-2.0); ANION GAP 18.3 mmol/L (8-16); CALCIUM 9.6 mg/dL (8.4-10.2); CHOL/HDL RATIO 2.8 (3.9-4.7); CREATININE, SERUM 8.62 mg/dL (0.72-1.25); POTASSIUM 5.3 mmol/L (3.5-5.1)
--- NOTE | 2019-02-21 07:10 | NUR ---
PATIENT SITTING AT BED SIDE TALKING TO FAMILY MEMBER, NO RESPIRATORY DISTRESS OBSERVED. 300CC OF YELLOW URINE REMOVED FROM UROSTOMY. EDEMA NOTED TO LEFT FOOT. DENIED PAIN AT THIS TIME. BED IN LOWER POSITION, CALL LIGHT AT REACH.
[2019-02-21] MEDS: INSULIN LISPRO 100 UNIT/1 ML 3ML VIAL SQ SCH ×4 (07:30→21:00)
--- NOTE | 2019-02-21 10:15 | NUR ---
BED SIDE ECHO CARDIOGRAM IN PROGRESS.
[2019-02-21] MEDS ORDERED: ALBUTEROL SULFATE HFA 8GM INHALATION AEROSOL INH SCH (11:00)
[2019-02-21] MEDS ORDERED: AZITHROMYCIN 250 MG TAB PO SCH (11:00)
[2019-02-21] MEDS ORDERED: ALBUTEROL SULFATE HFA 8GM INHALATION AEROSOL INH PRN (11:00)
[2019-02-21] MEDS ORDERED: MIRTAZAPINE 15 MG TAB PO PRN (11:00)
[2019-02-21] MEDS ORDERED: QUETIAPINE FUMARATE 25 MG TAB PO PRN (11:00)
[2019-02-21] MEDS ORDERED: ONDANSETRON HCL 4 MG ORAL DISINTEGRATING TAB PO PRN (11:30)
--- NOTE | 2019-02-21 11:50 | NUR ---
IN TO SEE PATIENT. ORDER RECEIVED FOR PATIENT TO HAVE HEMODIALYSIS EARLY IN AM AND BE DISCHARGED IMMEDIATELY AFTER THAT. KYLE CALLED AND NOTIFIED, SPOKE WITH REMY.
--- NOTE | 2019-02-21 12:10 | Consultation ---
DATE OF CONSULTATION: 02/21/2019 REASON FOR CONSULTATION: Evaluation for angina and shortness of breath. CONSULTING PHYSICIAN: Dr. Boyce. HISTORY OF PRESENT ILLNESS: This is a pleasant 74-year-old male, who presented with shortness of breath. According to the patient, for the last two months he has been having shortness of breath that get worse with exertion and deep breathing and chest pain. He described the chest pain as a constant pressure at the center of the chest on a scale of 2/10 with no radiation. He also stated that shortness of breath got worse within the last two days that he decided to come into the emergency room for further evaluation. He has a history of bladder cancer in the past. He had chest x-ray done that showed persistent bilateral interstitial edema and also CT of the chest that showed a possible posterior left lower lobe nodule with suspicion for metastasis. Troponin x2 was negative. EKG showed normal sinus rhythm with no ST abnormalities. BNP 26. PAST MEDICAL HISTORY: Diabetes, hypertension, end-stage renal disease on dialysis, anemia of chronic disease, BPH, hyperlipidemia, GERD, UTIs, bladder cancer, COPD, bilateral and former smoker. FAMILY HISTORY: Positive for hypertension and cancer. SOCIAL HISTORY: He lives at home with the and he quit smoking 30 years ago. PAST SURGICAL HISTORY: Urostomy. MEDICATIONS: See med list. ALLERGIES: NOT ALLERGIC TO ANY MEDICATION. REVIEW OF SYSTEMS: Negative except those mentioned above. PHYSICAL EXAMINATION: VITAL SIGNS: Temperature 98, heart rate 71, blood pressure 130/63, respirations 18, oxygen saturation 99% on room air. GENERAL: He is awake, alert, and oriented x3. HEENT: Mucous membranes moist. NECK: Supple. LUNGS: Bilateral clear to auscultation. CARDIOVASCULAR: S1, S2 present. ABDOMEN: Soft. NEUROLOGICAL: Intact. EXTREMITIES: With no edema. LABS: Sodium 135, potassium 5.3, chloride 104, CO2 of 18, BUN 66, creatinine 8.62, glucose 198. White blood cells 13.0, hemoglobin 8.9, hematocrit 28.5, platelets 82. PT 13.8, PTT 28.5, INR 1.01. IMPRESSION: 1. Acute dyspnea. 2. Chest pain. 3. Thrombocytopenia. 4. Anemia of chronic disease. 5. Hypertension. 6. Diabetes. 7. End-stage renal disease, on dialysis. 8. History of bladder cancer with urostomy. PLAN: 1. We will go ahead and get serial cardiac enzymes. 2. We will get an echocardiogram to assess the LV and valve function. 3. BNP 26. There was no clinical symptom of CHF. 4. We will continue his home medication. 5. Chest CT showing possible COPD or metastasis. Further cardiac workup pending clinical course. Thank you for this consultation. Dictated by Aguila Velazquez NP MD JANET Duron/MODL /[id number] KADY
[2019-02-21] MEDS: CHLORPROMAZINE HCL 25 MG TAB PO SCH ×2 (13:47→18:44)
[2019-02-21] MEDS: SEVELAMER CARBONATE 800 MG TAB PO SCH ×2 (13:47→17:08)
[2019-02-21 13:53] LABS: CREATINE KINASE MB 1.9 ng/mL (0-5.0)
--- NOTE | 2019-02-21 15:53 | NUR ---
PATIENT ASSISTED WITH SHOWER AND BACK TO BED. SLIDE DEVELOPER IN PLACE, CALL LIGHT AT REACH.
--- NOTE | 2019-02-21 19:50 | NUR ---
RECEIVED PT SITTING ON THE CHAIR .DENIES PAIN RT HAND S/L .NO ACUTE DISTRESS NOTED .CALL LIGHT WITH IN REACH .CONTINUE TO MONITOR
[2019-02-21] MEDS: ATORVASTATIN 20 MG TAB PO SCH (21:07)
[2019-02-22] VITALS (8 sets, daily range): BP systolic 85–135; BP diastolic 53–63
[2019-02-22] MEDS: ACETAMINOPHEN/CODEINE 300MG - 30MG TAB PO PRN ×2 (04:35→22:27)
[2019-02-22] MEDS: CHLORPROMAZINE HCL 25 MG TAB PO SCH ×4 (05:51→17:20)
--- NOTE | 2019-02-22 06:38 | NUR ---
PT RESTING IN THE BED .NO ACUTE DISTRESS NOTED .FAMILY AT THE BEDSIDE .CALL LIGHT WITH IN REACH .CONTINUE TO MONITOR
--- NOTE | 2019-02-22 07:07 | NUR ---
REPORT GIVEN TO THE ONCOMING NURSE
--- NOTE | 2019-02-22 07:30 | NUR ---
REC'D PT AAOX4, AT BEDSIDE, NO S/S OF DISTRESS, PT EATING BFAST SITTING ON THE SIDE OF THE BED. BED IN LOWEST POSITION, SIDE RAILS UP X2, AND CALL DALEY WITHIN REACH.
[2019-02-22] MEDS: MEGACE 400MG/ 10ML CUP PO SCH (08:04)
[2019-02-22] MEDS: FERROUS SULFATE 325 MG TAB PO SCH (08:04)
[2019-02-22] MEDS: CHOLECALCIFEROL 1,000 UNIT TAB PO SCH (08:05)
[2019-02-22] MEDS: PANTOPRAZOLE SOD 40 MG TABEC PO SCH (08:05)
[2019-02-22] MEDS: INSULIN LISPRO 100 UNIT/1 ML 3ML VIAL SQ SCH ×4 (08:12→20:49)
[2019-02-22] MEDS: INSULIN ASPART 70/30 100 UNITS/ML VIAL SC SCH (08:12)
[2019-02-22] MEDS: SEVELAMER CARBONATE 800 MG TAB PO SCH ×3 (08:15→17:20)
[2019-02-22] MEDS ORDERED: MEROPENEM 500MG/ NS 50ML 50 ML IV SCH (10:00)
[2019-02-22] MEDS ORDERED: CIPROFLOXACIN 500 MG TAB PO SCH (11:30)
--- NOTE | 2019-02-22 12:15 | NUR ---
PT RECEIVING DIALYSIS. NO S/S OF DISTRESS, VS ARE STABLE. BED IN LOWEST POSITION, SIDE RAILS UP X2, AND CALL DALEY WITHIN REACH.
[2019-02-22] MEDS ORDERED: HEPARIN SOD (PORCINE) 1000 UNIT/ML SDV IV PRN (13:15)
[2019-02-22] MEDS ORDERED: SODIUM CHLORIDE 0.9% 1000ML 2,000 ML IV PRN (13:15)
[2019-02-22] MEDS ORDERED: SODIUM CHLORIDE 0.9% 250ML 250 ML ONE (16:14)
[2019-02-22] MEDS: MEROPENEM 500MG/ NS 50ML 50 ML IV SCH (16:41)
--- NOTE | 2019-02-22 18:08 | NUR ---
Nutrition Screen Note RD Recommendation for Physician: - Continue current diet Plan of Care: RD following, monitoring for tolerance and adequacy Nutrition reason for involvement: Nutrition Risk Trigger- MST Primary Diagnose(s): bladder cancer with possible mets PMH: bladder cancer with urostomy, ESRD on HD, HLD, GERD, DM, HTN Ht: 73 in Wt: 245 lb BMI: 32.3 kg/m2 IBW: [address] Assessment: (02/22) 74 YOM admitted for bladder cancer with possible mets. Pt discussed during am rounds. Pt seen today per MST score. Pt sleeping at time of visit, pt's at bedside provided hx. Pt's reports good appetite and po intake at home, she states pt has been on Megace x 2 months and pt's appetite has improved- she states "he eats all day." Per chart pt with 75-100% meal intake. Pt's reports chronic constipation treated with meds, LBM 02/21, and denies additional GI distress. Reported UBW of 246#, no wt loss noted. Chart reviewed. Labs and meds reviewed. Will monitor and continue to follow. Current Diet: Renal diet Malnutrition Evaluation (02/22/19) The patient does not meet criteria for a specified degree of malnutrition at this time. Will re-evaluate at follow-up as appropriate. Diet Education Needs Assessment: Diet education indicated, however pt's reports she has been provided with adequate diet education materials from RD at HD unit. Nutrition Care Level: Low Signed: Dedra Harvey RD, LD, [facility]
--- NOTE | 2019-02-22 18:30 | NUR ---
PT ON BED, NO S/S OF DISTRESS, SIDE RAILS UP X2, AND CALL DALEY WITHIN REACH.
--- NOTE | 2019-02-22 19:37 | NUR ---
RECEIVED PT IN BED AOX3 .DENIES PAIN .FAMILY AT THE BEDSIDE .CONTINUE TO MONITOR ,
[2019-02-22] MEDS: ATORVASTATIN 20 MG TAB PO SCH (20:59)
--- NOTE | 2019-02-22 21:08 | Diagnostic Imaging Report ---
Exam: Brain MRI without contrast Indication: Diplopia Comparisons: Head CTs 12/31/2018 and 08/16/2018. Technique: Sagittal T2; axial DWI, FLAIR, MPGR, T1, Coronal FLAIR. Intravenous contrast: None Findings: Exam quality: Somewhat degraded by motion artifacts. Scalp: Normal in signal . No masses . Bone marrow: Normal in signal intensity. Extra-axial: No masses or fluid collections. Brain sulci: Appropriate for age. Ventricles: Normal in size . No hydrocephalus . Parenchyma: Scattered small T2/FLAIR hyperintense foci in the supratentorial white matter are nonspecific likely represent microvascular ischemic changes. Suprasellar region: No abnormalities. Craniocervical junction: No abnormalities. Patent foramen magnum. No Chiari one malformation. Vessels: Normal flow-voids in the arteries and sinuses. IMPRESSION: Motion degraded exam. Despite artifacts: 1. No acute intracranial abnormality. 2. No changes when compared to head CT dated 12/23/2018. Chronic findings: 1. Mild generalized cerebral volume loss. 2. Mild subcortical white matter microvascular ischemic changes. A preliminary report was provided by Dr. Sheth on 02/22/2019 9:05 PM. Signed by: Mateo Sheth MD on 02/22/2019 9:05 PM
--- NOTE | 2019-02-22 23:41 | Consultation ---
DATE OF CONSULTATION: Renal Consultation REASON FOR CONSULTATION: End-stage renal disease. HISTORY OF PRESENT ILLNESS: A 74-year-old male with history of end-stage renal disease, on hemodialysis Friday, Friday, and Friday, was brought to [facility] for shortness of breath. The patient was seen by Cardiology. There was no evidence of congestive heart failure. The patient underwent hemodialysis today and did not tolerate much ultrafiltration. REVIEW OF SYSTEMS: As above. No fevers, no chills. All other systems negative. PAST MEDICAL HISTORY: 1. Stage IV bladder cancer, status post radical cystectomy with bilateral converted ileal conduit, followed by Dr. Stephenson as an outpatient. 2. End-stage renal disease, on hemodialysis Friday, Friday, and Friday through tunneled dialysis catheter. 3. Hypertension. 4. Diabetes. PAST SURGICAL HISTORY: 1. Right tunneled dialysis catheter. 2. Radical cystectomy. SOCIAL HISTORY: No tobacco. No alcohol. No IV drugs. Lives at home with his . FAMILY HISTORY: No history of kidney disease. ALLERGIES: NO KNOWN DRUG ALLERGIES. CURRENT MEDICATIONS: See list. PHYSICAL EXAMINATION: VITAL SIGNS: Blood pressure 135/60, pulse 76 to 110, respiratory rate 18, and temperature 98.1. GENERAL: No apparent distress. HEENT: Oropharynx clear. No scleral icterus. No peripheral edema. NECK: Supple. No elevation of jugular venous pressure. No lymphadenopathy. CHEST: Clear to auscultation anteriorly with decreased breath sounds bilaterally. CARDIOVASCULAR: Regular rhythm. ABDOMEN: Soft. Positive bowel sounds. No tenderness. No rebound. EXTREMITIES: No edema. No clubbing. No cyanosis. IMAGING: CT of the chest shows rounded soft tissue nodules in the posterior left lower lobe concerning for METS. Ground-glass opacity in the posterior left costophrenic angle is no longer visualized, likely infiltrate. A ground-glass opacity in the anterior basal segment of left lower lobe is more organized and should be monitored. Tiny nodules along the major fissure bear watching on subsequent studies to exclude METS COPD. Chest x-ray, bilateral interstitial edema. LABORATORY DATA: White count 13,000, hemoglobin 8.9, hematocrit 28.5, and platelets 82. Sodium 135, potassium 4.3, chloride 104, CO2 of 18, BUN 66, creatinine 8.62, and albumin 2.6. ASSESSMENT AND PLAN: 1. End-stage renal disease. We will continue hemodialysis Friday, Friday, and Friday. 2. Shortness of breath. Does not seem to be cardiac related. The patient needs further workup. 3. Hyperkalemia, corrected with hemodialysis. 4. Anemia. The patient to be start on Epogen if remains in the hospital. 5. Hypertension. Blood pressure controlled. 6. MRI of the brain pending. MD MAGDY Ohara/BARON /[id number]
[2019-02-23] VITALS (7 sets, daily range): BP systolic 93–128; BP diastolic 54–69
[2019-02-23] MEDS: CHLORPROMAZINE HCL 25 MG TAB PO SCH ×5 (06:00→23:38)
--- NOTE | 2019-02-23 06:02 | NUR ---
PT RESTING .NO ACUTE DISTRESS NOTED .CALL LIGHT WITH IN REACH .CONTINUE TO MONITOR
[2019-02-23 06:22] LABS: BASOPHILS % 0.2 % (0.0-1.0); EOSINOPHILS # (AUTO) 0.2 (0.0-0.4); EOSINOPHILS % 2.3 % (0.0-6.0); HEMOGLOBIN 8.6 g/dL (14.0-18.0); LYMPHOCYTES # (AUTO) 0.4 (1.0-3.2); MEAN CORPUSCULAR HEMOGLOBIN 32.2 pg (28-32); MEAN CORPUSCULAR HGB CONC 31.9 g/dL (31-35); MEAN CORPUSCULAR VOLUME 101.1 fL (81-99); MONOCYTES # (AUTO) 0.1 (0.2-0.8); MONOCYTES % 1.3 % (4.4-11.3); NEUTROPHILS # (AUTO) 7.6 (2.1-6.9); NEUTROPHILS % 90.5 % (38.7-80.0); PLATELET COUNT 90 x10e3/uL (140-360); RED BLOOD COUNT 2.67 x10e6/uL (4.3-5.7); RED CELL DISTRIBUTION WIDTH 20.7 % (11.7-14.4)
--- NOTE | 2019-02-23 07:24 | NUR ---
REPORT GIVEN TO THE ONCOMING NURSE
--- NOTE | 2019-02-23 07:30 | NUR ---
PT SITTING ON CHAIR, ANTIBIOTICS RUNNING, AT BEDSIDE, AND NO S/S OF DISTRESS NOTED ON PT.
[2019-02-23 08:26] LABS: EOSINOPHILS % (MANUAL) 1 % (0-7); LYMPHOCYTES % (MANUAL) 8 % (19-48); MONOCYTES % (MANUAL) 2 % (3.4-9.0); NEUTROPHILS % (MANUAL) 88 % (40-74)
[2019-02-23 08:27] LABS: ANISOCYTOSIS SLIGHT; HYPOCHROMASIA SLIGHT; PLATELET ESTIMATE ADEQUATE; RBC MORPHOLOGY COMMENT NORMAL
[2019-02-23 08:28] LABS: PLATELET MORPHOLOGY COMMENT NORMAL
[2019-02-23] MEDS: PANTOPRAZOLE SOD 40 MG TABEC PO SCH (08:34)
[2019-02-23] MEDS: SEVELAMER CARBONATE 800 MG TAB PO SCH ×3 (08:34→17:30)
[2019-02-23] MEDS: MEGACE 400MG/ 10ML CUP PO SCH (08:34)
[2019-02-23] MEDS: CHOLECALCIFEROL 1,000 UNIT TAB PO SCH (08:34)
[2019-02-23] MEDS: FERROUS SULFATE 325 MG TAB PO SCH (08:34)
[2019-02-23] MEDS: MEROPENEM 500MG/ NS 50ML 50 ML IV SCH ×4 (08:46→23:38)
[2019-02-23] MEDS: INSULIN LISPRO 100 UNIT/1 ML 3ML VIAL SQ SCH ×4 (09:12→21:11)
[2019-02-23] MEDS: INSULIN ASPART 70/30 100 UNITS/ML VIAL SC SCH (09:14)
--- NOTE | 2019-02-23 15:25 | NUR ---
Visit made by the Spiritual Care Department Pastoral Visitor, Virginie Cabrales. PV provided pastoral presence, prayer, hospitality, and supportive listening. Pastoral Visitor informed pt/family of the scope of Switchboard Operator Assistant Services and availability. LUCRETIA HAYS Picking Crew Supervisor Spiritual Care Department O: [phone] Pager: [phone] ([phone] calling from)
--- NOTE | 2019-02-23 15:45 | NUR ---
PT IS ON SOFA WITH . NO S/S OF DISTRESS. WILL CON'T TO MONITOR.
--- NOTE | 2019-02-23 17:30 | NUR ---
PT SITTING ON SOFA WITH AND EATING DINNER. NO S/S OF DISTRESS. CALL DALEY WITHIN REACH. ANTIBIOTICS RUNNING.
[2019-02-23] MEDS: ATORVASTATIN 20 MG TAB PO SCH (21:11)
[2019-02-24] VITALS (7 sets, daily range): BP systolic 102–155; BP diastolic 55–68
[2019-02-24] MEDS: CHLORPROMAZINE HCL 25 MG TAB PO SCH ×3 (05:26→17:13)
[2019-02-24 09:01] LABS: ANION GAP 19.8 mmol/L (8-16); CALCIUM 9.3 mg/dL (8.4-10.2); CREATININE, SERUM 9.67 mg/dL (0.72-1.25); POTASSIUM 4.8 mmol/L (3.5-5.1)
[2019-02-24] MEDS: FERROUS SULFATE 325 MG TAB PO SCH (09:25)
[2019-02-24] MEDS: MEROPENEM 500MG/ NS 50ML 50 ML IV SCH ×2 (09:25→17:13)
[2019-02-24] MEDS: CHOLECALCIFEROL 1,000 UNIT TAB PO SCH (09:25)
[2019-02-24] MEDS: SEVELAMER CARBONATE 800 MG TAB PO SCH ×3 (09:25→17:13)
[2019-02-24] MEDS: PANTOPRAZOLE SOD 40 MG TABEC PO SCH (09:25)
[2019-02-24] MEDS: MEGACE 400MG/ 10ML CUP PO SCH (09:25)
[2019-02-24] MEDS: INSULIN LISPRO 100 UNIT/1 ML 3ML VIAL SQ SCH ×4 (09:45→20:28)
[2019-02-24] MEDS: INSULIN ASPART 70/30 100 UNITS/ML VIAL SC SCH (09:45)
--- NOTE | 2019-02-24 13:58 | NUR ---
CM SPOKE TO PATIENT AND PATIENT AT BEDSIDE REGARDING IMM LETTER. IMM LETTER GIVEN WITH EXPLANATION BASED ON ANTICIPATED DISCHARGE DATE. ORIGINAL SIGNED BY PER PATIENT REQUEST AND PLACED IN CHART; COPY OF ORIGINAL DOCUMENT GIVEN TO PATIENT AT BEDSIDE AND PLACED IN CARE TRANSITION FOLDER. CM CONTACT INFORMATION GIVEN TO PATIENT FOR ANY NEEDS OR CONCERNS. PATIENT WITH NO FURTHER QUESTIONS.
[2019-02-24] MEDS: ATORVASTATIN 20 MG TAB PO SCH (20:28)
[2019-02-24] MEDS: LACTULOSE SYRUP 20 GM/30 ML UDC PO PRN (20:28)
[2019-02-25] VITALS: BP 140/80
[2019-02-25] MEDS: CHLORPROMAZINE HCL 25 MG TAB PO SCH ×3 (00:31→12:49)
[2019-02-25] MEDS: MEROPENEM 500MG/ NS 50ML 50 ML IV SCH ×2 (00:31→08:27)
[2019-02-25 04:00] VITALS: BP 162/83
[2019-02-25 07:38] VITALS: BP 128/68
[2019-02-25 07:41] VITALS: BP 128/68
[2019-02-25] MEDS: CHOLECALCIFEROL 1,000 UNIT TAB PO SCH (08:27)
[2019-02-25] MEDS: MEGACE 400MG/ 10ML CUP PO SCH (08:27)
[2019-02-25] MEDS: SEVELAMER CARBONATE 800 MG TAB PO SCH ×2 (08:27→12:49)
[2019-02-25] MEDS: PANTOPRAZOLE SOD 40 MG TABEC PO SCH (08:27)
[2019-02-25] MEDS: LACTULOSE SYRUP 20 GM/30 ML UDC PO PRN (08:44)
[2019-02-25] MEDS: INSULIN LISPRO 100 UNIT/1 ML 3ML VIAL SQ SCH ×2 (09:20→11:30)
[2019-02-25] MEDS: INSULIN ASPART 70/30 100 UNITS/ML VIAL SC SCH (09:21)
[2019-02-25 11:24] VITALS: BP 160/83
--- NOTE | 2019-02-25 14:25 | NUR ---
PIV removed with tip intact. denies pain and SOB upon d/c. all personal belongings, and D/c instructions in hand at time of d/c. escorted to front lobby entrance where awaited in private auto.
--- NOTE | 2019-02-25 22:09 | Discharge Summary ---
CONSULTANTS: 1. Dr. Juan Urbina. 2. Dr. Thee Dozier. 3. Dr. Heron Hassan. FINAL DIAGNOSES: 1. Atypical pneumonia. 2. Resolved fever. 3. Urinary tract infection. 4. Baseline end-stage renal disease, on dialysis. SUMMARY: A 74 years old male came in with dyspnea, fluid overload, and required dialysis. The patient is also found to have atypical pneumonia and CT scan showed some vague infiltrate. He has also had a bladder urinary tract infection. He had a fever. The patient was placed on meropenem. The patient did receive antibiotics completed. He also received dialysis as well. The patient doing much better. Volume status much improved. Fever broke over 24-48 hours. The patient is stable, discharged home. Resume home medication. The patient to follow with his family doctor and with dialysis as planned. MD YAZAN Blanco/BARON /[id number]
== END 2019-02-25 16:41 | disposition home or self-care (01) | DRG 193 ==
LOC: ER 14:49 → ERHOLD 18:14 → MED/SURG3 19:33 → OBSVTOIN 02-22 09:16
PROVIDERS: ADMIT Internal Medicine; ATTEND Internal Medicine
PROC: 5A1D70Z Performance of Urinary Filtration, Intermittent, Less than 6 Hours Per Day (ICD-10-PCS; principal; 2019-02-22)
DX: J18.9 Pneumonia, unspecified organism (principal); N18.6 End stage renal disease; J44.1 Chronic obstructive pulmonary disease with (acute) exacerbation; I12.0 Hypertensive chronic kidney disease with stage 5 chronic kidney disease or end stage renal disease; C79.9 Secondary malignant neoplasm of unspecified site; N39.0 Urinary tract infection, site not specified; J44.0 Chronic obstructive pulmonary disease with (acute) lower respiratory infection; E87.70 Fluid overload, unspecified; Z99.2 Dependence on renal dialysis; C67.9 Malignant neoplasm of bladder, unspecified; R91.8 Other nonspecific abnormal finding of lung field; R07.9 Chest pain, unspecified; D69.6 Thrombocytopenia, unspecified; E11.22 Type 2 diabetes mellitus with diabetic chronic kidney disease; K21.9 Gastro-esophageal reflux disease without esophagitis; D63.1 Anemia in chronic kidney disease; K59.00 Constipation, unspecified; E66.9 Obesity, unspecified; Z68.32 Body mass index [BMI] 32.0-32.9, adult; Z79.4 Long term (current) use of insulin
CPT/HCPCS: 36415; 70551; 71046; 71250; 80048; 80053; 80061; 81001; 82550; 82553; 82948; 83880; 84484; 85025; 85610; 85730; 86704; 86707; 87086; 87350; 90962; 93005; 93306; 94640; 99284; G0378; J1644; J1815; J7030; J7050